=== PATIENT | female | born 1955 | race Caucasian/White ===

== ENCOUNTER 2019-03-29 10:02 | Inpatient (IN) | payer MEDICARE, BC ==
[~2019-03-29] VITALS: Ht 157.5 cm; Wt 73.1 kg
[2019-03-29] VITALS (22 sets, daily range): BP systolic 105–176; BP diastolic 69–163; PULSE 124–194; RESP 14–35; Ht 157.5 cm; Wt 73.1 kg
[2019-03-29] MEDS ORDERED: SODIUM CHLORIDE 0.9% 1L BAG IV* STA (10:11)
[2019-03-29] MEDS ORDERED: VANCOMYCIN 1 GM (PMX) 250 ML IVPB ONE (10:30)
[2019-03-29] MEDS ORDERED: LEVOFLOXACIN 750MG/D5W (PMX) 150 ML IVPB ONE (10:30)
[2019-03-29] MEDS ORDERED: CRAN425C6 GTB (11:51)
[2019-03-29] MEDS ORDERED: CRAN3875 GTB (11:52)
[2019-03-29] MEDS ORDERED: FERR220S13 GTB (11:52)
[2019-03-29] MEDS ORDERED: ASC500 GTB (11:53)
[2019-03-29] MEDS ORDERED: MULT9LIQ4 GTB (11:54)
[2019-03-29] MEDS ORDERED: MAGN400O19 GTB (11:55)
[2019-03-29] MEDS ORDERED: DOCU-144 GTB (11:55)
[2019-03-29] MEDS ORDERED: BISA10SU55 RC (11:56)
[2019-03-29] MEDS ORDERED: NA P133E39 RC (11:56)
[2019-03-29] MEDS ORDERED: ACET-141 GTB (12:01)
[2019-03-29] MEDS ORDERED: ACET325T33 GTB ×2 (12:01)
[2019-03-29] MEDS ORDERED: DEXT1DRO7 OP (12:02)
[2019-03-29] MEDS ORDERED: AMLO-147 GTB (12:03)
[2019-03-29] MEDS ORDERED: APIX2.5T GTB (12:15)
[2019-03-29] MEDS ORDERED: KEP100S GTB (12:16)
[2019-03-29] MEDS ORDERED: LEVO100T8 GTB (12:16)
[2019-03-29] MEDS ORDERED: MELA5TAB4 GTB (12:17)
[2019-03-29] MEDS ORDERED: LOVA10TA63 GTB (12:17)
[2019-03-29] MEDS ORDERED: POTA20TA96 GTB (12:18)
[2019-03-29] MEDS ORDERED: CLON0.5T14 GTB (12:25)
--- NOTE | 2019-03-29 12:27 | ERD ---
ER Documentation Chief Complaint Chief Complaint AARON FROM FACILITY WIHT A CHEIF COMPLAINT OF SORTNESS OF BREATH HPI 64-year-old female transferred to the emergency department from her convalescent facility for evaluation of shortness of breath. Patient is nonverbal providing no history. History available from the daughter as well as from the transfer paperwork. Patient was apparently in her usual state of health until today at which time she began having increasing shortness of breath. There is no known history of fevers or chest pain. I have reviewed the child daycare worker pre-hospital care. Pre-hospital vital signs were reviewed. Pre-hospital diagnostic tests were reviewed. Upon arrival, patient is nonverbal and provides no further history. ROS All systems reviewed and are negative except as per history of present illness. Medications Home Meds Reported Medications Clonazepam* (Clonazepam*) 0.5 Mg Tablet, 0.5 MG GTB BID, TAB 03/29/19 Potassium Chloride* (Potassium Chloride*) 20 Meq Tablet.er, 20 MEQ GTB DAILY, TAB.SA 03/29/19 Melatonin (Melatonin) 5 Mg Tablet, 5 MG GTB HS, TAB 03/29/19 Lovastatin* (Lovastatin*) 10 Mg Tablet, 10 MG GTB HS, TAB 03/29/19 Levothyroxine Sodium* (Levothyroxine Sodium*) 100 Mcg Tablet, 100 MCG GTB BEFORE BREAKFAST, #30 TAB 03/29/19 Levetiracetam* (Keppra* (Ped)) 100 Mg/Ml Liq, 15 ML GTB Q12H for 30 Days, BOTTLE 03/29/19 Apixaban* (Eliquis*) 2.5 Mg Tablet, 2.5 MG GTB DAILY, TAB 03/29/19 Amlodipine Besylate* (Amlodipine Besylate*) 10 Mg Tablet, 10 MG GTB DAILY, #30 TAB HOLD FOR SBP<110 OR HR<60 03/29/19 Dextran 70/Hypromellose/Pf (ARTIFICIAL TEARS DROPS) 1 Each Droperette, 1 EACH OP Q12H 03/29/19 Acetaminophen* (Acetaminophen*) 500 MG Extra Strength Tablet, 1000 MG GTB Q4H PRN for PAIN LEVEL 4-6/10, TAB 03/29/19 Acetaminophen* (Tylenol*) 325 Mg Tablet, 650 MG GTB PRN PRN for TRACH TUBE CHANGE, TAB 03/29/19 Acetaminophen* (Tylenol*) 325 Mg Tablet, 650 MG GTB Q4H PRN for MILD PAIN LEVEL 1-3, TAB AND FOR FEVER 101 AND ABOVE 03/29/19 Bisacodyl (Dulcolax) 10 Mg Supp.rect, 10 MG RC DAILY, SUPP.RECT 03/29/19 Sodium Phosphate,[place]-Dibasic (Enema Ready To Use) 133 Ml Enema, 133 ML RC Q2D, ENEMA 03/29/19 Magnesium Hydroxide* (Milk Of Magnesia*) 400 Mg/5 Ml Oral.susp, 30 ML GTB DAILY, ML 03/29/19 Docusate Sodium* (Colace*) 100 Mg Capsule, 100 MG GTB QHS, #30 CAP 03/29/19 Multivit &Minerals/Ferrous Fum (MULTIVITAMIN LIQUID) 9 Mg/15 Ml Liquid, 5 ML GTB DAILY 03/29/19 Ascorbic Acid (Vitamin C) 500 Mg Tab, 500 MG GTB BID, TAB 03/29/19 Ferrous Sulfate* (Ferrous Sulfate*) 220 Mg/5 Ml Solution, 7.5 ML GTB BID, ML 03/29/19 Cran/Vitc/Mannose/Inulin/Brom (Uti-Stat Liquid) 3,875 Mg/30 Ml Liquid, 30 MG GTB DAILY 03/29/19 Cranberry Extract (Cranberry) 425 Mg Capsule, 425 MG GTB BID, CAP 03/29/19 Allergies Allergies: Coded Allergies: Penicillins (Verified Allergy, Intermediate, Hives, 03/29/19) vancomycin (Verified Allergy, Intermediate, Hives, 03/29/19) PMhx/Soc History of Surgery: Yes (Lft Mastectomy) Hx Neurological Disorder: Yes (CVA w/Rt weakness, epilepsy) Hx Respiratory Disorders: Yes (vent dependent) Hx Cardiac Disorders: Yes (Afib w/RVR, HTN, CAD, ) Hx Psychiatric Problems: No Hx Miscellaneous Medical Probl: Yes (Breast CA, ) Hx Alcohol Use: No Hx Substance Use: No Hx Tobacco Use: No Smoking Status: Never smoker Physical Exam Vitals Vital Signs Date Temp Pulse Resp B/P (MAP) Pulse Ox O2 O2 Flow FiO2 Time Delivery Rate 03/29/19 99.9 133 16 106/64 100 12:02 (78) 03/29/19 99.9 189 24 179/153 100 Mechanical 10:56 (162) Ventilator 6/29/19 169 29 98 40 10:24 Physical Exam General: Frail, bed bound, ill appearing HEENT: Mucous membranes dry, sclera nonicteric Neck: Tracheostomy noted. Ostomy patent. No inflammatory changes noted. No JVD. Cardiovascular: Rapid, irregularly irregular rate and rhythm with no murmurs Lungs: Transmission of upper airway sounds. Abdomen: Soft with G-tube appreciated. Nontender to palpation. Bowel sounds noted. : Diaper in place and incontinent. Extremities: Atrophic but atraumatic with no edema, cyanosis or clubbing. Neurologic: Baseline organic brain syndrome noted. Gag reflex week. Motor streng th diminished in all 4 extremities but otherwise nonfocal. Skin: Skin breakdown noted per nursing note. Result Diagram: 03/29/19 1130 03/29/19 1047 Results 24 hrs Laboratory Tests Test 03/29/19 10:40 03/29/19 10:47 03/29/19 11:30 POC Venous Lactate 1.0 mmol/L Prothrombin Time 15.0 Sec Prothrombin Time Ratio 1.2 INR International 1.17 Normalized Ratio Activated Partial Thromboplast 20.8 Sec Time Sodium Level 143 mmol/L Potassium Level 4.6 mmol/L Chloride Level 107 mmol/L Carbon Dioxide Level 25 mmol/L Anion Gap 11 Blood Urea Nitrogen 19 mg/dl Creatinine 0.41 mg/dl Est Glomerular Filtrat > 60 mL/min Rate mL/min Glucose Level 138 mg/dl Calcium Level 8.7 mg/dl Total Bilirubin 0.6 mg/dl Direct Bilirubin 0.00 mg/dl Indirect Bilirubin 0.6 mg/dl Aspartate Amino Transf (AST/SGOT) 22 IU/L Alanine 22 IU/L Aminotransferase (ALT/SGPT) Alkaline Phosphatase 87 IU/L Troponin I < 0.012 ng/ml Total Protein 7.0 g/dl Albumin 3.7 g/dl Globulin 3.30 g/dl Albumin/Globulin Ratio 1.12 White Blood Count 10.6 10^3/ul Red Blood Count 4.13 10^6/ul Hemoglobin 11.7 g/dl Hematocrit 35.3 % Mean Corpuscular Volume 85.5 fl Mean Corpuscular Hemoglobin 28.3 pg Mean Corpuscular 33.1 g/dl Hemoglobin Concent Red Cell Distribution Width 13.6 % Platelet Count 218 10^3/UL Mean Platelet Volume 13.1 fl Immature Granulocytes % 0.800 % Neutrophils % 69.8 % Lymphocytes % 13.6 % Monocytes % 12.3 % Eosinophils % 2.8 % Basophils % 0.7 % Nucleated Red Blood Cells % 0.2 /100WBC Immature Granulocytes # 0.080 10^3/ul Neutrophils # 7.4 10^3/ul Lymphocytes # 1.4 10^3/ul Monocytes # 1.3 10^3/ul Eosinophils # 0.3 10^3/ul Basophils # 0.1 10^3/ul Nucleated Red Blood Cells # 0.0 10^3/ul Current Medications Medications Dose Sig/Garrett Start Time Status Last (Trade) Ordered Route PRN Stop Time Admin Dose Reason Admin Sodium 2,100 ml BOLUS OVER 2 03/29/19 DC 03/29/19 Chloride HOURS STAT 10:11 11:04 (NS) IV* 03/29/19 10:13 150 ml @ ONCE ONCE 03/29/19 DC 03/29/19 Levofloxacin/ 100 mls/hr IVPB 10:30 12:20 Dextrose 03/29/19 11:59 Vancomycin 250 ml @ ONCE ONCE 03/29/19 DC HCl 125 mls/hr IVPB 10:30 03/29/19 11:31 Procedures/MDM Patient was taken to a room, seen and evaluated. Comfort measures were initiated. Diagnostic tests were ordered and reviewed. 3 LEAD RHYTHM STRIP: Atrial fibrillation with rapid ventricular response EK lead EKG reviewed by myself: Atrial fibrillation with rapid ventricular response Right bundle branch block Nonspecific ST and T wave changes without ST elevation Impression: Nonspecific EKG RADIOLOGY: Reviewed with the radiologist CONSULTATION: Dr. Thomas was notified for admission. Dr. Lima saw the patient at bedside. REEVALUATION: 1230: Diagnostic tests were appreciated. Patient remained with a rapid ventricular response. I ordered a Cardizem drip. Blood pressure remained borderline the patient did not appear to be in septic or septic shock. MEDICAL DECISION MAKING: Patient presents for shortness of breath. Differential diagnosis entertained included asthma, pneumonia, other cardiac and pulmonary concerns. After reviewing the patient's diagnostic tests and clinical presentation, patient appears to have atrial fibrillation with rapid ventricular response. It is difficult to assess at this time if this is a shortness of breath is related to her cardiac issues or underlying pneumonia with a reactive atrial fibrillation with RVR. Patient will require ongoing aggressive supportive measures including the ongoing Cardizem drip. Empiric antibiotics have been initiated for the concerns and high risk of this possibly being a ventilator associated/healthcare associated pneumonia. Patient will be admitted to the hospital for further supportive management. CRITICAL CARE: Time:>35 minutes Patient has a significant chance of clinical deterioration Treatments/Evaluations: Close monitoring and treatment of unstable vital signs, cardiorespiratory, and neurologic status, while maintaining tight balance of fluid, respiratory, and cardiac interventions. Departure Diagnosis: Primary Impression: Shortness of breath Additional Impression: Atrial fibrillation Condition: Serious SAMREEN WHITLEY Mar 29, 2019 12:26
[2019-03-29] MEDS ORDERED: [UNRECOGNIZED DRUG - OTHER] OP SCH (14:00)
[2019-03-29] MEDS ORDERED: HYPROMELLOSE OP SCH (14:00)
[2019-03-29] MEDS ORDERED: DEXTRAN OP SCH (14:00)
[2019-03-29] MEDS: DILTIAZEM-D5W 125MG/125ML DRIP 125 ML IV SCH (14:21)
[2019-03-29] MEDS ORDERED: LORAZEPAM 2 MG INJ IV PRN (15:00)
[2019-03-29] MEDS ORDERED: IPRATROPIUM (HFA) 12.9 GM INHALER INH PRN (15:00)
[2019-03-29] MEDS ORDERED: ONDANSETRON 4 MG INJ IV PRN (15:00)
--- NOTE | 2019-03-29 16:15 | CONS ---
DATE OF ADMISSION: 03/29/2019 DATE OF CONSULTATION: 03/29/2019 TYPE OF CONSULTATION: Infectious disease. REASON FOR CONSULTATION: Antibiotic management. HISTORY OF PRESENT ILLNESS: Kaylen Marrero is a 64-year-old [facility] for evaluation of shortness of breath. The patient is nonverbal. History was obtained in the Emergency Room from the daughter and from transfer paper work . The patient began to have shortness of breath today. She had no fever or chills. She is nonverba l. PAST PROBLEMS include: 1. Shortness of breath. 2. History of breast cancer status post left mastectomy. 3. Cerebrovascular accident with right-sided weakness. 4. Epilepsy. 5. Ventilator-dependent respiratory failure. 6. Atrial fibrillation with rapid ventricular response. 7. Hypertension. 8. Coronary artery disease. PAST MEDICAL HISTORY: As outlined. FAMILY HISTORY: Noncontributory. REVIEW OF SYSTEMS: As outlined. PHYSICAL EXAMINATION: GENERAL: She is a frail, bedbound female. VITAL SIGNS: T-max is 99.9. SKIN: Has some breakdown in the sacral area. HEENT: Within normal limits. NECK: Tracheostomy present. The ostomy is patent without exudate. Neck is supple. LYMPH NODES: None palpable. CHEST: Tachycardic. Irregularly irregular rhythm without murmurs. Decreased breath sounds at the b ases. ABDOMEN: Soft. G-tube present without organosplenomegaly or masses. EXTREMITIES: Without cyanosis, clubbing, or edema. She has some atrophy. RECTAL AND GENITAL: Deferred. NEUROLOGIC: The patient is incontinent. Baseline organic brain syndrome. Motor strength diminished in all 4 extremities, but there is no focal abnormality. ANCILLARY LABORATORY DATA: White count on admission was 10.6, H and H of 11.7 and 35.3, platelet cou nt 218,000. BUN and creatinine 19/0.41. She has 70% neutrophils. The patient was started on Levaqu in and vancomycin. Chest x-ray shows changes suggesting pulmonary congestion and edema with small to moderate effusions, tracheostomy tube is noted. Surgical clips over the right axilla, due probably to the mastectomy. IMPRESSION AND PLAN: The patient probably has shortness of breath related to congestive heart failur e. She is in rapid atrial fibrillation with rapid ventricular response, with shortness of breath. S he received Cardizem in the Emergency Room. She has high risk for ventilator-associated, healthcare- associated pneumonia, but no evidence of pneumonia at this point. If so, we would change her to [facility] guo from [facility]. I will dictate my findings to the hospitalists. Dictated By: BLADIMIR ALBARRAN MD, JD/INDIGO Conf#: [id number] DID#: [id number]
--- NOTE | 2019-03-29 16:56 | HP ---
Date/Time of Note Date/Time of Note DATE: 03/29/19 TIME: 16:33 Assessment/Plan VTE Prophylaxis SCD applied (from Nsg): Yes Pharmacological prophylaxis: LMWH Lines/Catheters IV Catheter Type (from Nrsg): Peripheral IV Assessment/Plan Assessment/Plan 1. Acute on chronic hypoxic respiratory failure - most likely secondary to pulmonary congestion - Continue on mechanical ventilation - Pulmonology consultation placed for vent management - Nebs on board 2. Acute on chronic diastolic heart failure - will start on Lasix - check BNP - CXR noted for pulm congestion - Cardiology consulted 3. Afib with RVR - started on Cardizem in ED - Continue on Eliquis - will check TSH 4. UTI - hx ESBL per [facility] records - ID consulted for antibiotic management - Urine cx sent - IV antibiotics 5. 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 Diabetes Mellitus - check A1c 7. hypothyroidism - check TSH - continue levothyroxine 8. HTN - hold while on cardizem drip 9. GERD - PPI 10. h/o CVA with L residual weakness 11. Seizures - continue keppra 12. h/o breast CA s/p mastectomy 13. Diet - continue TF 14. Disposition - Admit to ICU for acute respiratory failure and management of afib with RVR Result Diagram: 03/29/19 1130 03/29/19 1047 Results 24hrs Laboratory Tests Test 03/29/19 10:40 03/29/19 10:47 03/29/19 11:00 03/29/19 11:30 POC Venous 1.0 Lactate Prothrombin Time 15.0 H Prothrombin Time 1.2 Ratio INR International 1.17 Normalized Ratio Activated 20.8 L Partial Thrombopl ast Time Sodium Level 143 Potassium Level 4.6 Chloride Level 107 Carbon Dioxide 25 Level Anion Gap 11 Blood Urea 19 Nitrogen Creatinine 0.41 L Est Glomerular > 60 Filtrat Rate mL/min Glucose Level 138 Calcium Level 8.7 Total Bilirubin 0.6 Direct Bilirubin 0.00 Indirect 0.6 Bilirubin Aspartate Amino 22 Transf (AST/SGOT) Alanine 22 Aminotransferase (ALT/SGPT) Alkaline 87 Phosphatase Troponin I < 0.012 Total Protein 7.0 Albumin 3.7 Globulin 3.30 H Albumin/Globulin 1.12 Ratio Blood Gas Blood arterial Specimen Source Arterial Blood 03/29/2019 12:37: Date Drawn 28 PM Arterial Blood pH 7.452 H (Temp corrected) Arterial Blood 33.1 L pCO2 (Temp correct) Arterial Blood 104.6 H pO2 (Temp corrected) Arterial Blood 22.6 HCO3 Arterial Blood -0.7 Base Excess Arterial Blood 97.4 Oxygen Saturation Joseph Test ACCEPTAB Arterial Blood Left Radial Gas Puncture Site Arterial 0.3 Blood Carboxyhemo globin Arterial Blood 0.3 Methemoglobin Blood Gas A-a O2 142.5 H Differential Oxyhemoglobin 96.8 Percent Blood Gas 37.0 Temperature Blood Gas 16.0 Respiration Rate Blood Gas Actual 18 Respiration Rate Blood Gas VENT - AC Modality FiO2 40.0 Blood Gas Tidal 450.0 Volume Blood Gas Low 5.0 PEEP Setting Blood Gas M.D. Notified Whom Blood Gas 03/29/2019 12:47: Notified Time 50 PM White Blood Count 10.6 Red Blood Count 4.13 L Hemoglobin 11.7 L Hematocrit 35.3 L Mean Corpuscular 85.5 Volume Mean Corpuscular 28.3 L Hemoglobin Mean Corpuscular 33.1 Hemoglobin Concen t Red Cell 13.6 Distribution Width Platelet Count 218 Mean Platelet 13.1 H Volume Immature 0.800 H Granulocytes % Neutrophils % 69.8 Lymphocytes % 13.6 L Monocytes % 12.3 H Eosinophils % 2.8 Basophils % 0.7 Nucleated Red 0.2 H Blood Cells % Immature 0.080 H Granulocytes # Neutrophils # 7.4 Lymphocytes # 1.4 Monocytes # 1.3 H Eosinophils # 0.3 Basophils # 0.1 Nucleated Red 0.0 Blood Cells # Test 03/29/19 12:15 03/29/19 13:39 Urine Color YELLOW Urine Clarity CLOUDY A Urine pH 9.0 Urine Specific 1.011 [place] Urine Ketones NEGATIVE Urine Nitrite POSITIVE A Urine Bilirubin NEGATIVE Urine NEGATIVE Urobilinogen Urine Leukocyte 3+ H Esterase Urine Microscopic 146 H RBC Urine Microscopic 26 H WBC Urine Bacteria FEW A Urine Hemoglobin 3+ H Urine Glucose NEGATIVE Urine Total 2+ H Protein Lactic Acid Level 1.4 B-Type 9110 H Natriuretic Peptide HPI/ROS Admit Date/Time Admit Date/Time 01/27/19 Hx of Present Illness 64 yo F with PMH atrial fibrillation, diastolic HF, dementia, subdural hemorrhage s/p evacuation with resulting encephalopathy, CVA with residual L sided weakness, chronic respiratory failure, trach to vent, diabetes mellitus, seizure, HTN, GERD, hypothyroidism, hx ESBL UTI, and breast cancer presented from SNF for worsening shortness of breath. Patient's daughters at bedside and providing history as patient is nonverbal. Patient has been nonverbal and bedridden for the past 1.5 years and resides at [facility]. Per daughters, patient was turning red this am and was noted with difficulty breathing, Denies any coughing, wheezing, fevers, or chills. Daughters have been concerned about recurrent UTIs and was recently at [facility] for tx of ESBL UTI. They state since her lakhani was placed in December, their mother has been having issues. In the ED, patient was found in rapid atrial fibrillation and started on Cardizem drip. ROS All 12 systems reviewed and pertinent positives as per HPI. All others negative. Subjective hx not possible: pt non-verbal Constitutional: No chills, No fatigue, No nausea Eyes: No discharge ENT: No congestion Respiratory: shortness of breath; No cough, No sputum, No wheezing Cardiovascular: No chest pain, No lightheadedness, No palpitations Gastrointestinal: No pain, No constipation, No diarrhea, No nausea, No vomiting Genitourinary: discharge, hematuria; No dysuria Musculoskeletal: No restricted range of motion Skin: no complaints Neurologic: focal-weakness; No syncope Lymphatic: no complaints Immunologic: no complaints PMH/Family/Social Past Medical History Medical History: congestive heart failure, diabetes, GERD, hypertension, hypothyroid, other (atrial fibrillation, SDH, dementia, seizure, ) Medications Current Medications Diltiazem HCl 125 ml @ 5 mls/hr TITRATE IV Last administered on 03/29/19at 14:21; Admin Dose 5 MLS/HR; Start 03/29/19 at 12:30 Acetaminophen (Tylenol Tab) 650 mg Q4H PRN GTB MILD PAIN LEVEL 1-3; Start 03/29/19 at 14:00 Apixaban (Eliquis) 2.5 mg DAILY GTB ; Start 03/30/19 at 09:00; Status UNV Ascorbic Acid (Vitamin C) 500 mg BID GTB ; Start 03/29/19 at 21:00 Clonazepam (Klonopin) 0.5 mg BID GTB ; Start 03/29/19 at 21:00 Ferrous Sulfate (Ferrous Sulfate) 330 mg BID GTB ; Start 03/29/19 at 21:00; Status UNV Levetiracetam (Keppra Liquid) 1,500 mg Q12H GTB ; Start 03/29/19 at 14:00 Levothyroxine Sodium (Synthroid) 100 mcg BEFORE BREAKFAST GTB ; Start 03/30/19 at 07:00 Magnesium Hydroxide (Milk Of Mag) 30 ml DAILY GTB ; Start 03/30/19 at 09:00 Melatonin (Melatonin) 5 mg HS GTB ; Start 03/29/19 at 21:00 Miscellaneous Information 1 each Q12H OP ; Start 03/29/19 at 14:00; Status UNV Miscellaneous Information 10 mg HS GTB ; Start 03/29/19 at 21:00; Status UNV Miscellaneous Information 5 ml DAILY GTB ; Start 03/30/19 at 09:00; Status UNV Docusate Sodium (Colace Liquid Cup) 100 mg QHS GTB ; Start 03/29/19 at 21:00 Ondansetron HCl (Zofran Inj) 4 mg Q6H PRN IV NAUSEA AND/OR VOMITING; Start 03/29/19 at 15:00 Ipratropium [place] (Atrovent Hfa) 4 puff Q4H RESP THERAPY INH ; Start 03/29/19 at 17:00; Status UNV Ipratropium [place] (Atrovent Hfa) 4 puff Q2H RESP THERAPY PRN INH SHORTNESS OF BREATH; Start 03/29/19 at 15:00; Status UNV Lorazepam (Ativan) 1 mg Q2H PRN IV ANXIETY; Start 03/29/19 at 15:00 Meropenem/Sodium Chloride 50 ml @ 100 mls/hr Q12 IVPB ; Start 03/29/19 at 21:00; Status UNV Coded Allergies: Penicillins (Verified Allergy, Intermediate, Hives, 03/29/19) vancomycin (Verified Allergy, Intermediate, Hives, 03/29/19) Past Surgical History Past Surgical Hx: other (Right mastectomy, left subdural evacuation, trach/peg) Family History Significant Family History: no pertinent family hx Social History Alcohol Use: none Smoking Status: Never smoker Drug Use: none Exam/Review of Systems Vital Signs Vitals Vital Signs Date Temp Pulse Resp B/P (MAP) Pulse Ox O2 O2 Flow FiO2 Time Delivery Rate 03/29/19 146 14 98 40 14:49 03/29/19 97/72 (80) Mechanical 14:21 Ventilator 03/29/19 99.9 12:02 Exam Exam General: No acute distress. nonverbal, tracking with eyes HEENT: Atraumatic, normocephalic. The pupils are equal, round and reactive. Extraocular motor are intact. Neck: Supple with full range of motion. No rigidity or meningismus Chest: Nontender Lungs: Clear to auscultation bilaterally no crackles rales or wheezing Heart: Normal S1-S2, irregular rhythm and tachycardia. No murmur, S3, or S4 Abdomen: Soft , nontender to palpation, nondistended , bowel sounds are present. No guarding no rebound tenderness , No masses or organomegaly. No costovertebral temporal angle mass. PEG in place Extremities: no edema, cyanosis, or clubbing Neurologic: tracking with eyes. not following commands. Additional Comments Home medications reviewed PROCEDURE: XR Chest 1 View CLINICAL INDICATION: Shortness of breath. Sepsis. TECHNIQUE: VIEWS: 1 IMAGES: 1 COMPARISON: None. FINDINGS: CARDIAC AND MEDIASTINAL SILHOUETTES: The heart appears mildly enlarged. Mild aortic calcifications are present. LUNGS: There is interstitial prominence and diffuse alveolar haziness with central predominance. Small to moderate effusions may be present. OSSEOUS STRUCTURES: Vertebral osteophytes are noted. LINES AND TUBES: Tracheostomy tube is noted. OTHER FINDINGS: Surgical clips overlie the right axilla. IMPRESSION: 1. Changes suggest pulmonary congestion/edema with small to moderate effusions. RPTAT:[facility] Physician [place] Date Time Electronically viewed and signed by Alok Valentine Physician on 03/29/2019 10:40 ANISH STRINGER MD Mar 29, 2019 16:48
[2019-03-29] MEDS ORDERED: ARTIFICIAL TEARS 15 ML OPH BOTH EYES PRN (18:30)
[2019-03-29] MEDS: LEVETIRACETAM (100 MG/ML) 5ML CUP GTB SCH (18:31)
[2019-03-29] MEDS ORDERED: FERROUS SULFATE 220 MG/5 ML ML GTB SCH (21:00)
[2019-03-29] MEDS ORDERED: NON-FORMULARY/PATIENT OWN MED (Lovastatin* 10 MG) GTB SCH (21:00)
[2019-03-29] MEDS ORDERED: MEROPENEM 500MG/50 ML (PMX) 50 ML IVPB SCH (21:00)
[2019-03-29] MEDS: IPRATROPIUM (HFA) 12.9 GM INHALER INH SCH (21:00)
[2019-03-29] MEDS: DOCUSATE SODIUM 10 MG/ML (10ML CUP) GTB SCH (21:11)
[2019-03-29] MEDS: FERROUS SULFATE 60 MG/ML 5ML CUP GTB SCH (21:11)
[2019-03-29] MEDS: MELATONIN 5 MG TABLET GTB SCH (21:12)
[2019-03-29] MEDS: ATORVASTATIN 10 MG TAB PO SCH (21:12)
[2019-03-29] MEDS: clonAZEPAM 0.5 MG TAB GTB SCH (21:12)
[2019-03-29] MEDS: ASCORBIC ACID 500 MG TAB GTB SCH (21:12)
[2019-03-29] MEDS ORDERED: METOPROLOL 5 MG INJ IV ONE (23:50)
[2019-03-30] VITALS (73 sets, daily range): BP systolic 81–160; BP diastolic 63–141; PULSE 63–159; RESP 12–26
[2019-03-30] MEDS ORDERED: MAGNESIUM SULFATE 3 GM in DEXTROSE 5% 100 ML IVPB ONE ×2
[2019-03-30] MEDS: IPRATROPIUM (HFA) 12.9 GM INHALER INH SCH ×6 (01:18→21:37)
[2019-03-30] MEDS: DILTIAZEM-D5W 125MG/125ML DRIP 125 ML IV SCH (01:50)
[2019-03-30] MEDS: LEVETIRACETAM (100 MG/ML) 5ML CUP GTB SCH ×2 (01:52→14:34)
[2019-03-30] MEDS: AMIODARONE 900 MG in DEXTROSE 5% 482 ML IV SCH (03:16)
[2019-03-30] MEDS ORDERED: SOD CHLORIDE 0.9% 500 ML IV ONE (04:00)
[2019-03-30] MEDS ORDERED: POTASSIUM CHLORIDE 20 MEQ POWDER FOR ORAL SOLN GTB ONE (06:00)
[2019-03-30] MEDS: LEVOTHYROXINE 100 MCG TAB GTB SCH (06:11)
[2019-03-30] MEDS: POTASSIUM CHLORIDE 100 ML IVPB SCH ×2 (06:12→10:29)
[2019-03-30] MEDS ORDERED: CALCIUM GLUCONATE 10% 2 GM in DEXTROSE 5% 100 ML IVPB ONE (07:00)
[2019-03-30] MEDS: APIXABAN 5 MG TABLET GTB SCH (08:25)
[2019-03-30] MEDS: FERROUS SULFATE 60 MG/ML 5ML CUP GTB SCH ×2 (08:25→20:23)
[2019-03-30] MEDS: MAGNESIUM HYDROXIDE 30ML CUP GTB SCH (08:25)
[2019-03-30] MEDS: MULTIVITAMINS/MINERALS TAB PO SCH (08:25)
[2019-03-30] MEDS: clonAZEPAM 0.5 MG TAB GTB SCH ×2 (08:25→20:23)
[2019-03-30] MEDS: ASCORBIC ACID 500 MG TAB GTB SCH ×2 (08:25→20:24)
[2019-03-30] MEDS ORDERED: NON-FORMULARY/PATIENT OWN MED (Multivit &Minerals/Ferrous Fum (Multivitamin Liquid) 5 ML) GTB SCH (09:00)
--- NOTE | 2019-03-30 09:56 | PN ---
Date/Time of Note Date/Time of Note DATE: 03/30/19 TIME: 09:56 Assessment/Plan VTE Prophylaxis Risk score (from Nsg)>0 risk: 6 SCD applied (from Nsg): Yes Pharmacological prophylaxis: apixaban Lines/Catheters IV Catheter Type (from Nrsg): Peripheral IV Urinary Cath still in place: Yes Reason Cath still needed: urinary retention Assessment/Plan Assessment/Plan 1. Acute on chronic hypoxic respiratory failure- stable - most likely secondary to pulmonary congestion - repeat CXR in am - Continue on mechanical ventilation - Pulmonology consulted for vent management - Nebs on board 2. Acute on chronic diastolic heart failure - Continue on Lasix and monitor I/O and daily weights - BNP elevated - CXR noted for pulm congestion - Cardiology consulted 3. Afib with RVR - started on Cardizem in ED and switched to Amiodarone. Still with elevated HR and PRN cardizem added. Unable to use digoxin for rate control given low K - Continue on Eliquis 4. UTI - hx ESBL per [facility] records - ID consultation appreciated - Urine cx showing gram neg rods - IV antibiotics 5. 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 Diabetes Mellitus - check A1c 7. hypothyroidism - TSH within normal limits - continue levothyroxine 8. HTN 9. GERD - PPI 10. h/o CVA with L residual weakness 11. Seizures - continue keppra 12. h/o breast CA s/p mastectomy 13. Disposition - Cardiology consultation pending for recommendations on afib with RVR and CHF exacerbation - will continue current care and awaiting urine cx sensitivities Result Diagram: 03/30/19 0430 03/30/19 0430 Results 24hrs Laboratory Tests Test 03/29/19 10:40 03/29/19 10:47 03/29/19 11:00 03/29/19 11:30 POC Venous 1.0 Lactate Prothrombin Time 15.0 H Prothrombin Time 1.2 Ratio INR International 1.17 Normalized Ratio Activated 20.8 L Partial Thrombopl ast Time Sodium Level 143 Potassium Level 4.6 Chloride Level 107 Carbon Dioxide 25 Level Anion Gap 11 Blood Urea 19 Nitrogen Creatinine 0.41 L Est Glomerular > 60 Filtrat Rate mL/min Glucose Level 138 Calcium Level 8.7 Total Bilirubin 0.6 Direct Bilirubin 0.00 Indirect 0.6 Bilirubin Aspartate Amino 22 Transf (AST/SGOT) Alanine 22 Aminotransferase (ALT/SGPT) Alkaline 87 Phosphatase Troponin I < 0.012 Total Protein 7.0 Albumin 3.7 Globulin 3.30 H Albumin/Globulin 1.12 Ratio Blood Gas Blood arterial Specimen Source Arterial Blood 03/29/2019 12:37: Date Drawn 28 PM Arterial Blood pH 7.452 H (Temp corrected) Arterial Blood 33.1 L pCO2 (Temp correct) Arterial Blood 104.6 H pO2 (Temp corrected) Arterial Blood 22.6 HCO3 Arterial Blood -0.7 Base Excess Arterial Blood 97.4 Oxygen Saturation Joseph Test ACCEPTAB Arterial Blood Left Radial Gas Puncture Site Arterial 0.3 Blood Carboxyhemo globin Arterial Blood 0.3 Methemoglobin Blood Gas A-a O2 142.5 H Differential Oxyhemoglobin 96.8 Percent Blood Gas 37.0 Temperature Blood Gas 16.0 Respiration Rate Blood Gas Actual 18 Respiration Rate Blood Gas VENT - AC Modality FiO2 40.0 Blood Gas Tidal 450.0 Volume Blood Gas Low 5.0 PEEP Setting Blood Gas M.D. Notified Whom Blood Gas 03/29/2019 12:47: Notified Time 50 PM White Blood Count 10.6 Red Blood Count 4.13 L Hemoglobin 11.7 L Hematocrit 35.3 L Mean Corpuscular 85.5 Volume Mean Corpuscular 28.3 L Hemoglobin Mean Corpuscular 33.1 Hemoglobin Concen t Red Cell 13.6 Distribution Width Platelet Count 218 Mean Platelet 13.1 H Volume Immature 0.800 H Granulocytes % Neutrophils % 69.8 Lymphocytes % 13.6 L Monocytes % 12.3 H Eosinophils % 2.8 Basophils % 0.7 Nucleated Red 0.2 H Blood Cells % Immature 0.080 H Granulocytes # Neutrophils # 7.4 Lymphocytes # 1.4 Monocytes # 1.3 H Eosinophils # 0.3 Basophils # 0.1 Nucleated Red 0.0 Blood Cells # Test 03/29/19 12:15 03/29/19 13:39 03/30/19 04:30 Urine Color YELLOW Urine Clarity CLOUDY A Urine pH 9.0 Urine Specific 1.011 [place] Urine Ketones NEGATIVE Urine Nitrite POSITIVE A Urine Bilirubin NEGATIVE Urine NEGATIVE Urobilinogen Urine Leukocyte 3+ H Esterase Urine Microscopic 146 H RBC Urine Microscopic 26 H WBC Urine Bacteria FEW A Urine Hemoglobin 3+ H Urine Glucose NEGATIVE Urine Total 2+ H Protein Lactic Acid Level 1.4 B-Type 9110 H Natriuretic Peptide White Blood Count 5.3 # Red Blood Count 2.97 #L Hemoglobin 8.5 #L Hematocrit 25.6 #L Mean Corpuscular 86.2 Volume Mean Corpuscular 28.6 L Hemoglobin Mean Corpuscular 33.2 Hemoglobin Concen t Red Cell 13.8 Distribution Width Platelet Count 146 # Mean Platelet 13.2 H Volume Immature 0.600 H Granulocytes % Neutrophils % 58.6 Lymphocytes % 18.4 Monocytes % 16.7 H Eosinophils % 4.9 Basophils % 0.8 Nucleated Red 0.0 Blood Cells % Immature 0.030 Granulocytes # Neutrophils # 3.1 Lymphocytes # 1.0 Monocytes # 0.9 Eosinophils # 0.3 Basophils # 0.0 Nucleated Red 0.0 Blood Cells # Sodium Level 145 H Potassium Level 2.0 #*L Chloride Level 123 H Carbon Dioxide 17 L Level Anion Gap 5 Blood Urea 9 # Nitrogen Creatinine 0.27 L Glucose Level 110 Hemoglobin A1c 6.0 H Calcium Level 4.8 *L Phosphorus Level 2.2 L Magnesium Level 2.0 Albumin 1.8 #L Thyroid 3.140 Stimulating Hormone (TSH) Subjective 24 Hr Interval Summary Free Text/Dictation Patient still in afib with RVR but remains calm. No acute distress appreciated. at bedside and plan of care discussed. Exam/Review of Systems Exam Vitals Vital Signs Date Temp Pulse Resp B/P (MAP) Pulse Ox O2 O2 Flow FiO2 Time Delivery Rate 03/30/19 113 08:00 03/30/19 16 115/87 98 06:15 (96) 03/30/19 Mechanical 06:00 Ventilator 03/30/19 30 05:01 03/30/19 98.2 04:00 Intake and Output 03/29/19 03/29/19 03/30/19 1515:00 23:00 07:00 IntakeIntake Total 120 ml 411.6 ml OutputOutput Total 90 ml 155 ml BalanceBalance 30 ml 256.6 ml Exam General: No acute distress. nonverbal, tracking with eyes Neck: Supple Chest: Nontender Lungs: Clear to auscultation bilaterally no crackles rales or wheezing Heart: Normal S1-S2, irregular rhythm and tachycardia. No murmur, S3, or S4 Abdomen: Soft , nontender to palpation, nondistended , bowel sounds are present. PEG in place Extremities: no edema, cyanosis, or clubbing Results Results 24hrs Laboratory Tests Test 03/29/19 10:40 03/29/19 10:47 03/29/19 11:00 03/29/19 11:30 POC Venous 1.0 Lactate Prothrombin Time 15.0 H Prothrombin Time 1.2 Ratio INR International 1.17 Normalized Ratio Activated 20.8 L Partial Thrombopl ast Time Sodium Level 143 Potassium Level 4.6 Chloride Level 107 Carbon Dioxide 25 Level Anion Gap 11 Blood Urea 19 Nitrogen Creatinine 0.41 L Est Glomerular > 60 Filtrat Rate mL/min Glucose Level 138 Calcium Level 8.7 Total Bilirubin 0.6 Direct Bilirubin 0.00 Indirect 0.6 Bilirubin Aspartate Amino 22 Transf (AST/SGOT) Alanine 22 Aminotransferase (ALT/SGPT) Alkaline 87 Phosphatase Troponin I < 0.012 Total Protein 7.0 Albumin 3.7 Globulin 3.30 H Albumin/Globulin 1.12 Ratio Blood Gas Blood arterial Specimen Source Arterial Blood 03/29/2019 12:37: Date Drawn 28 PM Arterial Blood pH 7.452 H (Temp corrected) Arterial Blood 33.1 L pCO2 (Temp correct) Arterial Blood 104.6 H pO2 (Temp corrected) Arterial Blood 22.6 HCO3 Arterial Blood -0.7 Base Excess Arterial Blood 97.4 Oxygen Saturation Joseph Test ACCEPTAB Arterial Blood Left Radial Gas Puncture Site Arterial 0.3 Blood Carboxyhemo globin Arterial Blood 0.3 Methemoglobin Blood Gas A-a O2 142.5 H Differential Oxyhemoglobin 96.8 Percent Blood Gas 37.0 Temperature Blood Gas 16.0 Respiration Rate Blood Gas Actual 18 Respiration Rate Blood Gas VENT - AC Modality FiO2 40.0 Blood Gas Tidal 450.0 Volume Blood Gas Low 5.0 PEEP Setting Blood Gas M.D. Notified Whom Blood Gas 03/29/2019 12:47: Notified Time 50 PM White Blood Count 10.6 Red Blood Count 4.13 L Hemoglobin 11.7 L Hematocrit 35.3 L Mean Corpuscular 85.5 Volume Mean Corpuscular 28.3 L Hemoglobin Mean Corpuscular 33.1 Hemoglobin Concen t Red Cell 13.6 Distribution Width Platelet Count 218 Mean Platelet 13.1 H Volume Immature 0.800 H Granulocytes % Neutrophils % 69.8 Lymphocytes % 13.6 L Monocytes % 12.3 H Eosinophils % 2.8 Basophils % 0.7 Nucleated Red 0.2 H Blood Cells % Immature 0.080 H Granulocytes # Neutrophils # 7.4 Lymphocytes # 1.4 Monocytes # 1.3 H Eosinophils # 0.3 Basophils # 0.1 Nucleated Red 0.0 Blood Cells # Test 03/29/19 12:15 03/29/19 13:39 03/30/19 04:30 Urine Color YELLOW Urine Clarity CLOUDY A Urine pH 9.0 Urine Specific 1.011 [place] Urine Ketones NEGATIVE Urine Nitrite POSITIVE A Urine Bilirubin NEGATIVE Urine NEGATIVE Urobilinogen Urine Leukocyte 3+ H Esterase Urine Microscopic 146 H RBC Urine Microscopic 26 H WBC Urine Bacteria FEW A Urine Hemoglobin 3+ H Urine Glucose NEGATIVE Urine Total 2+ H Protein Lactic Acid Level 1.4 B-Type 9110 H Natriuretic Peptide White Blood Count 5.3 # Red Blood Count 2.97 #L Hemoglobin 8.5 #L Hematocrit 25.6 #L Mean Corpuscular 86.2 Volume Mean Corpuscular 28.6 L Hemoglobin Mean Corpuscular 33.2 Hemoglobin Concen t Red Cell 13.8 Distribution Width Platelet Count 146 # Mean Platelet 13.2 H Volume Immature 0.600 H Granulocytes % Neutrophils % 58.6 Lymphocytes % 18.4 Monocytes % 16.7 H Eosinophils % 4.9 Basophils % 0.8 Nucleated Red 0.0 Blood Cells % Immature 0.030 Granulocytes # Neutrophils # 3.1 Lymphocytes # 1.0 Monocytes # 0.9 Eosinophils # 0.3 Basophils # 0.0 Nucleated Red 0.0 Blood Cells # Sodium Level 145 H Potassium Level 2.0 #*L Chloride Level 123 H Carbon Dioxide 17 L Level Anion Gap 5 Blood Urea 9 # Nitrogen Creatinine 0.27 L Glucose Level 110 Hemoglobin A1c 6.0 H Calcium Level 4.8 *L Phosphorus Level 2.2 L Magnesium Level 2.0 Albumin 1.8 #L Thyroid 3.140 Stimulating Hormone (TSH) Medications Medication Current Medications Acetaminophen (Tylenol Tab) 650 mg Q4H PRN GTB MILD PAIN LEVEL 1-3; Start 03/29/19 at 14:00 Apixaban (Eliquis) 2.5 mg DAILY GTB Last administered on 03/30/19at 08:25; Admin Dose 2.5 MG; Start 03/30/19 at 09:00 Ascorbic Acid (Vitamin C) 500 mg BID GTB Last administered on 03/30/19at 08:25; Admin Dose 500 MG; Start 03/29/19 at 21:00 Clonazepam (Klonopin) 0.5 mg BID GTB Last administered on 03/30/19 08:25; Admin Dose 0.5 MG; Start 03/29/19 at 21:00 Levetiracetam (Keppra Liquid) 1,500 mg Q12H GTB Last administered on 03/30/19 01:52; Admin Dose 1,500 MG; Start 03/29/19 at 14:00 Levothyroxine Sodium (Synthroid) 100 mcg BEFORE BREAKFAST GTB Last administered on 03/30/19 06:11; Admin Dose 100 MCG; Start 03/30/19 at 07:00 Magnesium Hydroxide (Milk Of Mag) 30 ml DAILY GTB Last administered on 03/30/19 08:25; Admin Dose 30 ML; Start 03/30/19 at 09:00 Melatonin (Melatonin) 5 mg HS GTB Last administered on 03/29/19 21:12; Admin Dose 5 MG; Start 03/29/19 at 21:00 Docusate Sodium (Colace Liquid Cup) 100 mg QHS GTB Last administered on 03/29/19 21:11; Admin Dose 100 MG; Start 03/29/19 at 21:00 Ondansetron HCl (Zofran Inj) 4 mg Q6H PRN IV NAUSEA AND/OR VOMITING; Start 03/29/19 at 15:00 Ipratropium [place] (Atrovent Hfa) 2 puff Q4H RESP THERAPY INH Last administered on 03/30/19 04:27; Admin Dose 2 PUFF; Start 03/29/19 at 17:00 Ipratropium [place] (Atrovent Hfa) 2 puff Q2H RESP THERAPY PRN INH SHORTNESS OF BREATH; Start 03/29/19 at 15:00 Lorazepam (Ativan) 1 mg Q2H PRN IV ANXIETY; Start 03/29/19 at 15:00 Levofloxacin/ Dextrose 150 ml @ 100 mls/hr Q24H IVPB ; Start 03/30/19 at 10:30 Atorvastatin Calcium (Lipitor) 10 mg DAILY@21 PO Last administered on 03/29/19 21:12; Admin Dose 10 MG; Start 03/29/19 at 21:00 Multivitamins/ Minerals (Theragran-M) 1 tab DAILY PO Last administered on 03/30/19 08:25; Admin Dose 1 TAB; Start 03/30/19 at 09:00 Eye Lubricant (Artificial Tears Oph) 1 drop Q12H PRN BOTH EYES DRY EYES; Start 03/29/19 at 18:30 Ferrous Sulfate (Feosol Liquid Cup) 300 mg BID GTB Last administered on at 08:25; Admin Dose 300 MG; Start 03/29/19 at 21:00 Amiodarone HCl 900 mg/Dextrose 500 ml @ 0 mls/hr Q0M IV Last administered on 03/30/19at 03:16; Admin Dose 33.3 MLS/HR; Start 03/30/19 at 03:00 Potassium Chloride 100 ml @ 50 mls/hr Q2H IVPB Last administered on 03/30/19at 06:12; Admin Dose 50 MLS/HR; Start 03/30/19 at 06:00; Stop 03/30/19 at 09:59 ANISH STRINGER MD Mar 30, 2019 09:56
[2019-03-30] MEDS ORDERED: DILTIAZEM 25 MG INJ IV PRN (10:30)
[2019-03-30] MEDS ORDERED: DILTIAZEM 25 MG INJ IV ONE (10:30)
[2019-03-30] MEDS: LEVOFLOXACIN 750MG/D5W (PMX) 150 ML IVPB SCH (13:31)
--- NOTE | 2019-03-30 14:15 | CONS ---
Assessment/Plan Assessment/Plan Hospital Course (Demo Recall) No acute changes overnight patient is awake noncommunicative in no distress afebrile with a T-max yesterday 99.9. She is on amiodarone drip heart rate controlled WBC 5.3 no shift no bands BUN 15 creatinine 0.41 Urinalysis was positive for leukocyte Estrace WBC and few bacteria Microbiology: Blood cultures remain negative urine culture growing gram-negative tre Chest x-ray revealed pulmonary congestion with small to moderate pleural effusions Indwelling: Trach PEG [place] Allergy: Penicillin, vancomycin Antimicrobials: Levofloxacin Physical examination: Chronically ill-appearing elderly woman who is in no distress. Head atraumatic normocephalic neck is supple chest rise symmetrical breath sounds diminished bases heart: S1-S2. Abdomen soft bowel sounds present. Assessment: 1. Acute on chronic hypoxemic respiratory failure secondary to pulmonary congestion 2. Urinary tract infection, gram-negative rods 3. Atrial fibrillation with rapid ventricular response 4. 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 Diabetes 6. Hypertension Plan: clinically stable, continue amiodarone drip, follow cardiology recommendations, await for final cultures Consultation Date/Type/Reason Admit Date/Time Mar 29, 2019 at 13:25 Initial Consult Date Type of Consult id Date/Time of Note DATE: 03/30/19 TIME: 14:14 Exam/Review of Systems Exam Vitals Vital Signs Date Temp Pulse Resp B/P (MAP) Pulse Ox O2 O2 Flow FiO2 Time Delivery Rate 03/30/19 114 12:00 03/30/19 97.6 18 139/74 98 Mechanical 12:00 (95) Ventilator 03/30/19 30 11:20 Intake and Output 03/29/19 03/29/19 03/30/19 1515:00 23:00 07:00 IntakeIntake Total 120 ml 484.9 ml OutputOutput Total 90 ml 175 ml BalanceBalance 30 ml 309.9 ml Results Result Diagram: 03/30/19 0430 03/30/19 1326 Results 24hrs Laboratory Tests Test 03/30/19 04:30 03/30/19 13:26 White Blood Count 5.3 # Red Blood Count 2.97 #L Hemoglobin 8.5 #L Hematocrit 25.6 #L Mean Corpuscular Volume 86.2 Mean Corpuscular Hemoglobin 28.6 L Mean Corpuscular Hemoglobin Concent 33.2 Red Cell Distribution Width 13.8 Platelet Count 146 # Mean Platelet Volume 13.2 H Immature Granulocytes % 0.600 H Neutrophils % 58.6 Lymphocytes % 18.4 Monocytes % 16.7 H Eosinophils % 4.9 Basophils % 0.8 Nucleated Red Blood Cells % 0.0 Immature Granulocytes # 0.030 Neutrophils # 3.1 Lymphocytes # 1.0 Monocytes # 0.9 Eosinophils # 0.3 Basophils # 0.0 Nucleated Red Blood Cells # 0.0 Sodium Level 145 H 139 Potassium Level 2.0 #*L 5.0 # Chloride Level 123 H 108 # Carbon Dioxide Level 17 L 23 Anion Gap 5 8 Blood Urea Nitrogen 9 # 15 Creatinine 0.27 L 0.41 L Glucose Level 110 185 Hemoglobin A1c 6.0 H Calcium Level 4.8 *L 8.5 Phosphorus Level 2.2 L Magnesium Level 2.0 Albumin 1.8 #L Thyroid Stimulating Hormone (TSH) 3.140 Est Glomerular Filtrat Rate mL/min > 60 Medications Medication Current Medications Acetaminophen (Tylenol Tab) 650 mg Q4H PRN GTB MILD PAIN LEVEL 1-3; Start 03/29/19 at 14:00 Apixaban (Eliquis) 2.5 mg DAILY GTB Last administered on 03/30/19 08:25; Admin Dose 2.5 MG; Start 03/30/19 at 09:00 Ascorbic Acid (Vitamin C) 500 mg BID GTB Last administered on 03/30/19 08:25; Admin Dose 500 MG; Start 03/29/19 at 21:00 Clonazepam (Klonopin) 0.5 mg BID GTB Last administered on 03/30/19 08:25; Admin Dose 0.5 MG; Start 03/29/19 at 21:00 Levetiracetam (Keppra Liquid) 1,500 mg Q12H GTB Last administered on 03/30/19 01:52; Admin Dose 1,500 MG; Start 03/29/19 at 14:00 Levothyroxine Sodium (Synthroid) 100 mcg BEFORE BREAKFAST GTB Last administered on 03/30/19 06:11; Admin Dose 100 MCG; Start 03/30/19 at 07:00 Magnesium Hydroxide (Milk Of Mag) 30 ml DAILY GTB Last administered on 03/30/19 08:25; Admin Dose 30 ML; Start 03/30/19 at 09:00 Melatonin (Melatonin) 5 mg HS GTB Last administered on 03/29/19 21:12; Admin Dose 5 MG; Start 03/29/19 at 21:00 Docusate Sodium (Colace Liquid Cup) 100 mg QHS GTB Last administered on 03/29/19 21:11; Admin Dose 100 MG; Start 03/29/19 at 21:00 Ondansetron HCl (Zofran Inj) 4 mg Q6H PRN IV NAUSEA AND/OR VOMITING; Start 03/29/19 at 15:00 Ipratropium [place] (Atrovent Hfa) 2 puff Q4H RESP THERAPY INH Last administered on 03/30/19 14:11; Admin Dose 2 PUFF; Start 03/29/19 at 17:00 Ipratropium [place] (Atrovent Hfa) 2 puff Q2H RESP THERAPY PRN INH SHORTNESS OF BREATH; Start 03/29/19 at 15:00 Lorazepam (Ativan) 1 mg Q2H PRN IV ANXIETY; Start 03/29/19 at 15:00 Levofloxacin/ Dextrose 150 ml @ 100 mls/hr Q24H IVPB Last administered on 03/30/19 13:31; Admin Dose 100 MLS/HR; Start 03/30/19 at 10:30 Atorvastatin Calcium (Lipitor) 10 mg DAILY@21 PO Last administered on 03/29/19 21:12; Admin Dose 10 MG; Start 03/29/19 at 21:00 Multivitamins/ Minerals (Theragran-M) 1 tab DAILY PO Last administered on 03/30/19 08:25; Admin Dose 1 TAB; Start 03/30/19 at 09:00 Eye Lubricant (Artificial Tears Oph) 1 drop Q12H PRN BOTH EYES DRY EYES; Start 03/29/19 at 18:30 Ferrous Sulfate (Feosol Liquid Cup) 300 mg BID GTB Last administered on 03/30/19 08:25; Admin Dose 300 MG; Start 03/29/19 at 21:00 Amiodarone HCl 900 mg/Dextrose 500 ml @ 0 mls/hr Q0M IV Last administered on 03/30/19 03:16; Admin Dose 33.3 MLS/HR; Start 03/30/19 at 03:00 Diltiazem HCl (Cardizem Iv) 5 mg Q4 PRN IV HR >110; Start 03/30/19 at 10:30 JASPER QUINTERO NP Mar 30, 2019 14:15
--- NOTE | 2019-03-30 14:45 | RADRPT ---
Echocardiogram Report Patient Name: MILLIE COSBYPatient ID: [id number] : 1955 (64y 1m)Study Date: 03/30/2019 9:40:55 AM Gender: FAccession #: [id number] Tech: RustamClinton GETACHEW Location: ICU 110-A Ref.Physician: ANISH STRINGER Height(Cm): BSA: Weight(Kg): Quality: AdequateOrder Physician: ANISH STRINGER Account #: Procedures: Echocardiographic Report: Transthoracic echocardiogram with complete 2D, M-Mode, and doppler examination. Indications: Evaluate Left Ventricular function. Measurements: 2D/M Mode Doppler Measurement Value Normal Range Measurement Value Normal Range LVIDd 2D 4.8 [ 3.8 - 5.2 ] cm AV Peak Nathanael 1.1 [ 100.0 - 170.0 ] cm/se c LVIDs 2D 4.2 [ 2.2 - 3.5 ] cm AV Peak PG 5.0 [ 2.0 - 9.0 ] mmHg LVPWd 2D 0.7 [ 0.6 - 0.9 ] cm LVOT Peak Nathanael 0.7 [ 70.0 - 110.0 ] cm/sec IVSd 2D 0.8 [ 0.6 - 0.9 ] cm LVOT Peak PG 2.0 [ 2.0 - 6.0 ] mmHg EDV 2D 109.0 [ 46.0 - 106.0 ] ml MV E Peak Nathanael 0.9 [ 60.0 - 130.0 ] cm/sec ESV 2D 79.5 [ 14.0 - 42.0 ] ml MV A Peak Nathanael 0.8 [ 100.0 - 120.0 ] cm/se c EF 2D 27.1 [ 54.0 - 74.0 ] percent MV E/A 1.1 [ 0.8 - 1.5 ] ratio LA Dimen 2D 3.9 [ 2.7 - 3.8 ] cm MV PHT 41.0 [ 20.0 - 100.0 ] msec MV Decel Time 141 [ 104 - 258 ] msec MV Decel [place] 6 Lat E` Nathaneal 0.1 [ 10.0 - 15.0 ] cm/sec Lateral E/E` 6.5 [ 1.0 - 2.0 ] ratio Med E` Nathanael 0.1 cm/sec MV E/A 1.1 [ 0.8 - 1.5 ] ratio MVA PHT 5.4 [ 2.0 - 4.0 ] cm2 TR Peak Nathanael 3.5 [ 100.0 - 280.0 ] cm/se c TR Peak PG 48.0 mmHg Findings: Left Ventricle: Normal left ventricular cavity size. Normal left ventricular wall thickness. Severe left ventricular systolic dysfunction. Global hypokinesis with better motion at the bases. Ejection fraction is visually estimated at 25-30 %. Tissue Doppler/Mitral Doppler indices are indeterminate in this study due to the presence of atrial fibrillation. Right Ventricle: Normal right ventricular size. Normal right ventricular systolic function. Left Atrium: There is severe enlargement of left atrium. Right Atrium: There is severe enlargement of right atrium. Atrial Septum: Normal atrial septum. Mitral Valve: Mild mitral annular calcification. Moderate mitral valve regurgitation. Aortic Valve: Aortic sclerosis without significant stenosis. No aortic regurgitation. Tricuspid Valve: Normal appearance of the tricuspid valve. The estimated Peak RVSP is 48 mmHg. There is moderate tricuspid regurgitation. Pulmonic Valve: Pulmonic valve not well visualized. No evidence of pulmonic regurgitation. Pericardium: Normal pericardium with no significant pericardial effusion. Trivial pericardial effusion. Pleural effusion seen. Aorta: Normal aortic root. IVC: The IVC is not well visualized. Conclusions: Normal left ventricular cavity size. Normal left ventricular wall thickness. Severe left ventricular systolic dysfunction. Global hypokinesis with better motion at the bases. Ejection fraction is visually estimated at 25-30 %. Tissue Doppler/Mitral Doppler indices are indeterminate in this study due to the presence of atrial fibrillation. Moderate mitral valve regurgitation. Aortic sclerosis without significant stenosis. There is moderate tricuspid regurgitation. There is severe enlargement of left atrium.There is severe enlargement of right atrium. Pleural effusion seen. The estimated Peak RVSP is 48 mmHg plus RA pressure. The IVC is not well visualized. Electronically Signed By: Angel Odell 2019-03-30 14:45:11 PDT
--- NOTE | 2019-03-30 15:09 | CONS ---
DATE OF ADMISSION: 03/29/2019 DATE OF CONSULTATION: 03/30/2019 REASON FOR CONSULTATION: Ventilator management. Thank you, Dr. Chu, for this consultation. HISTORY OF PRESENT ILLNESS: This is a 64-year-old lady with a history of hemorrhagic cerebrovascular accident status post craniectomy in the past and evacuation with subsequent encephalopathy requiring mechanical ventilation, tracheostomy, has been a resident of group home facility for the past y ear, recent admission to [facility] for ESBL UTI. Yesterday transferred to [facility] Emergency Room for increasing heart rate, congestion and respiratory distress. Found to be in atrial fibrillation with rapid ventricular rate, positive urinalysis, requiring rate control , initiation of antibiotics and fluid resuscitation. The patient is nonverbal, unable to give us fur ther history. PAST MEDICAL HISTORY: 1. Subdural hematoma status post evacuation. 2. Encephalopathy. 3. Vent dependent respiratory failure. 4. Dysphagia with G-tube. 5. Atrial fibrillation. 6. Chronic diastolic heart failure. MEDICATIONS: Per chart. ALLERGIES 1. PENICILLIN. 2. VANCOMYCIN. SOCIAL HISTORY: She is a nonsmoker, no alcohol, no history of drug use. FAMILY HISTORY: Noncontributory. SYSTEMS REVIEW: A 12-point review of systems was negative other than that mentioned above. PHYSICAL EXAMINATION: GENERAL: A chronically ill-appearing lady, on mechanical ventilation via tracheostomy. VITAL SIGNS: Currently afebrile, pulse is 130, blood pressure 108/84, O2 saturation 96%, FIO2 of 30% . NECK: Supple. No JVD or lymphadenopathy. CARDIAC: Sounds 1 and 2, no added sounds or murmurs. CHEST: Diminished air entry bilaterally. ABDOMEN: Soft, nontender. No guarding or rebound. EXTREMITIES: No cyanosis, clubbing, edema. NEUROLOGIC: Unable to assess. LABORATORY DATA: White count 5.3, hemoglobin 8.5, platelets of 146. Potassium today was 2. BUN 9, creatinine 0.27. Lactic acid 1.4. ABG: pH 7.45, pCO2 of 33, pO2 of 104. IMPRESSION: 1. Ventilator-dependent respiratory failure with encephalopathy. 2. Subdural hematoma status post evacuation. 3. Urinary tract infection with recent extended spectrum beta lactamase. 4. Atrial fibrillation with rapid ventricular rate. 5. Dysphagia with G-tube. PLAN: 1. Continue mechanical ventilation. 2. Tube feeding as tolerated. 3. Antibiotics per infectious diseases pending cultures. 4. Rate control per cardiology. Currently on amiodarone. 5. Tube feeding as tolerated. 6. Deep venous thrombosis and GI prophylaxis. Dictated By: MICHAEL FONTAINE MD SV/INDIGO Conf#: [id number] DID#: [id number] CC: ANISH CHU MD;*EndCC*
--- NOTE | 2019-03-30 15:14 | CONS ---
Assessment/Plan Assessment/Plan Hospital Course (Demo Recall) Paroxysmal atrial fibrillation with RVR: On an odd dose of Eliquis 2.5mg daily but with h/o SDH and likely no clinical effect from recurrent stroke, will assume someone has addressed this dose as outpt. Presented in RVR, now back in sinus after amiodarone drip Acute on ?chronic systolic heart failure: Decompensated on exam and by CXR. Also with low albumin which is contributing Cardiomyopathy: EF 25-30%. ?etiology. 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 Will switch to PO tomorrow -start lasix 40mg IV BID -start coreg 12.5mg BID -start lisinopril 5mg -continue Eliquis Consultation Date/Type/Reason Admit Date/Time Mar 29, 2019 at 13:25 Date of Consultation: Mar 30, 2019 Type of Consult Cardiology Reason for Consultation AFib, CHF Requesting Provider: ANISH STRINGER MD Date/Time of Note DATE: 03/30/19 TIME: 14:56 Hx of Present Illness 64 yo F with a h/o CHF, paroxysmal atrial fibrillation on Eliquis 2.5mg daily, vegetative state/encephalopathy due to prior CVA and SDG, SDH 2017 s/p evacuation, chronic VDRF/trached, HTN, seizures, who was brought in from her SNF due to respiratory failure. She was found to have afib with RVR. She was oln a diltiazem drip but unable to control her HR. She was switched to amiodarone and this am converted to sinus. Her CXR shows significant pulm edema. She is unresponsive at baseline. No family at bedside currently. unable to obtain Past Medical History per hpi Home Meds Reported Medications Clonazepam* (Clonazepam*) 0.5 Mg Tablet, 0.5 MG GTB BID, TAB 03/29/19 Potassium Chloride* (Potassium Chloride*) 20 Meq Tablet.er, 20 MEQ GTB DAILY, TAB.SA 03/29/19 Melatonin (Melatonin) 5 Mg Tablet, 5 MG GTB HS, TAB 03/29/19 Lovastatin* (Lovastatin*) 10 Mg Tablet, 10 MG GTB HS, TAB 03/29/19 Levothyroxine Sodium* (Levothyroxine Sodium*) 100 Mcg Tablet, 100 MCG GTB BEFORE BREAKFAST, #30 TAB 03/29/19 Levetiracetam* (Keppra* (Ped)) 100 Mg/Ml Liq, 15 ML GTB Q12H for 30 Days, BOTTLE 03/29/19 Apixaban* (Eliquis*) 2.5 Mg Tablet, 2.5 MG GTB DAILY, TAB 03/29/19 Amlodipine Besylate* (Amlodipine Besylate*) 10 Mg Tablet, 10 MG GTB DAILY, #30 TAB HOLD FOR SBP<110 OR HR<60 03/29/19 Dextran 70/Hypromellose/Pf (ARTIFICIAL TEARS DROPS) 1 Each Droperette, 1 EACH OP Q12H 03/29/19 Acetaminophen* (Acetaminophen*) 500 MG Extra Strength Tablet, 1000 MG GTB Q4H PRN for PAIN LEVEL 4-10, TAB 03/29/19 Acetaminophen* (Tylenol*) 325 Mg Tablet, 650 MG GTB PRN PRN for TRACH TUBE CHANGE, TAB 03/29/19 Acetaminophen* (Tylenol*) 325 Mg Tablet, 650 MG GTB Q4H PRN for MILD PAIN LEVEL 1-3, TAB AND FOR FEVER 101 AND ABOVE 03/29/19 Bisacodyl (Dulcolax) 10 Mg Supp.rect, 10 MG RC DAILY, SUPP.RECT 03/29/19 Sodium Phosphate,Trego-Dibasic (Enema Ready To Use) 133 Ml Enema, 133 ML RC Q2D, ENEMA 03/29/19 Magnesium Hydroxide* (Milk Of Magnesia*) 400 Mg/5 Ml Oral.susp, 30 ML GTB DAILY, ML 03/29/19 Docusate Sodium* (Colace*) 100 Mg Capsule, 100 MG GTB QHS, #30 CAP 03/29/19 Multivit &Minerals/Ferrous Fum (MULTIVITAMIN LIQUID) 9 Mg/15 Ml Liquid, 5 ML GTB DAILY 03/29/19 Ascorbic Acid (Vitamin C) 500 Mg Tab, 500 MG GTB BID, TAB 03/29/19 Ferrous Sulfate* (Ferrous Sulfate*) 220 Mg/5 Ml Solution, 7.5 ML GTB BID, ML 03/29/19 Cran/Vitc/Mannose/Inulin/Brom (Uti-Stat Liquid) 3,875 Mg/30 Ml Liquid, 30 MG GTB DAILY 03/29/19 Cranberry Extract (Cranberry) 425 Mg Capsule, 425 MG GTB BID, CAP 03/29/19 Medications Current Medications Acetaminophen (Tylenol Tab) 650 mg Q4H PRN GTB MILD PAIN LEVEL 1-3; Start 03/29/19 at 14:00 Apixaban (Eliquis) 2.5 mg DAILY GTB Last administered on 03/30/19 08:25; Admin Dose 2.5 MG; Start 03/30/19 at 09:00 Ascorbic Acid (Vitamin C) 500 mg BID GTB Last administered on 03/30/19 08:25; Admin Dose 500 MG; Start 03/29/19 at 21:00 Clonazepam (Klonopin) 0.5 mg BID GTB Last administered on 03/30/19 08:25; Admin Dose 0.5 MG; Start 03/29/19 at 21:00 Levetiracetam (Keppra Liquid) 1,500 mg Q12H GTB Last administered on 03/30/19 14:34; Admin Dose 1,500 MG; Start 03/29/19 at 14:00 Levothyroxine Sodium (Synthroid) 100 mcg BEFORE BREAKFAST GTB Last administered on 03/30/19 06:11; Admin Dose 100 MCG; Start 03/30/19 at 07:00 Magnesium Hydroxide (Milk Of Mag) 30 ml DAILY GTB Last administered on 03/30/19 08:25; Admin Dose 30 ML; Start 03/30/19 at 09:00 Melatonin (Melatonin) 5 mg HS GTB Last administered on 03/29/19 21:12; Admin Dose 5 MG; Start 03/29/19 at 21:00 Docusate Sodium (Colace Liquid Cup) 100 mg QHS GTB Last administered on 03/29/19 21:11; Admin Dose 100 MG; Start 03/29/19 at 21:00 Ondansetron HCl (Zofran Inj) 4 mg Q6H PRN IV NAUSEA AND/OR VOMITING; Start 03/29/19 at 15:00 Ipratropium [place] (Atrovent Hfa) 2 puff Q4H RESP THERAPY INH Last administered on 03/30/19 14:11; Admin Dose 2 PUFF; Start 03/29/19 at 17:00 Ipratropium [place] (Atrovent Hfa) 2 puff Q2H RESP THERAPY PRN INH SHORTNESS OF BREATH; Start 03/29/19 at 15:00 Lorazepam (Ativan) 1 mg Q2H PRN IV ANXIETY; Start 03/29/19 at 15:00 Levofloxacin/ Dextrose 150 ml @ 100 mls/hr Q24H IVPB Last administered on 03/30/19at 13:31; Admin Dose 100 MLS/HR; Start 03/30/19 at 10:30 Atorvastatin Calcium (Lipitor) 10 mg DAILY@21 PO Last administered on 03/29/19at 21:12; Admin Dose 10 MG; Start 03/29/19 at 21:00 Multivitamins/ Minerals (Theragran-M) 1 tab DAILY PO Last administered on 03/30/19at 08:25; Admin Dose 1 TAB; Start 03/30/19 at 09:00 Eye Lubricant (Artificial Tears Oph) 1 drop Q12H PRN BOTH EYES DRY EYES; Start 03/29/19 at 18:30 Ferrous Sulfate (Feosol Liquid Cup) 300 mg BID GTB Last administered on 03/30/19at 08:25; Admin Dose 300 MG; Start 03/29/19 at 21:00 Amiodarone HCl 900 mg/Dextrose 500 ml @ 0 mls/hr Q0M IV Last administered on 03/30/19at 03:16; Admin Dose 33.3 MLS/HR; Start 03/30/19 at 03:00 Diltiazem HCl (Cardizem Iv) 5 mg Q4 PRN IV HR >110; Start 03/30/19 at 10:30 Allergies: Coded Allergies: Penicillins (Verified Allergy, Intermediate, Hives, 03/29/19) vancomycin (Verified Allergy, Intermediate, Hives, 03/29/19) Past Surgical History Past Surgical Hx: other (Right mastectomy, left subdural evacuation, trach/peg) Social History Alcohol Use: none Smoking Status: Never smoker Drug Use: none Exam/Review of Systems Vital Signs Vitals Vital Signs Date Temp Pulse Resp B/P (MAP) Pulse Ox O2 O2 Flow FiO2 Time Delivery Rate 03/30/19 114 12:00 03/30/19 97.6 18 139/74 98 Mechanical 12:00 (95) Ventilator 03/30/19 30 11:20 Intake and Output 03/29/19 03/29/19 03/30/19 1515:00 23:00 07:00 IntakeIntake Total 120 ml 484.9 ml OutputOutput Total 90 ml 175 ml BalanceBalance 30 ml 309.9 ml Exam Constitutional: No alert Head: normocephalic, atraumatic ENMT: other (s/p trach) Neck: No jvd (unabel to assess) Respiratory: diminished breath sounds; No clear to auscultation Cardiovascular: regular rate and rhythm, edema (1+ sacrum); No systolic murmur Gastrointestinal: soft; No distended Musculoskeletal: No nl extremities to inspection Neurological: No nl mental status, No nl speech Labs Result Diagram: 03/30/19 0430 03/30/19 1326 Results 24hrs Laboratory Tests Test 03/30/19 04:30 03/30/19 13:26 White Blood Count 5.3 # Red Blood Count 2.97 #L Hemoglobin 8.5 #L Hematocrit 25.6 #L Mean Corpuscular Volume 86.2 Mean Corpuscular Hemoglobin 28.6 L Mean Corpuscular Hemoglobin Concent 33.2 Red Cell Distribution Width 13.8 Platelet Count 146 # Mean Platelet Volume 13.2 H Immature Granulocytes % 0.600 H Neutrophils % 58.6 Lymphocytes % 18.4 Monocytes % 16.7 H Eosinophils % 4.9 Basophils % 0.8 Nucleated Red Blood Cells % 0.0 Immature Granulocytes # 0.030 Neutrophils # 3.1 Lymphocytes # 1.0 Monocytes # 0.9 Eosinophils # 0.3 Basophils # 0.0 Nucleated Red Blood Cells # 0.0 Sodium Level 145 H 139 Potassium Level 2.0 #*L 5.0 # Chloride Level 123 H 108 # Carbon Dioxide Level 17 L 23 Anion Gap 5 8 Blood Urea Nitrogen 9 # 15 Creatinine 0.27 L 0.41 L Glucose Level 110 185 Hemoglobin A1c 6.0 H Calcium Level 4.8 *L 8.5 Phosphorus Level 2.2 L Magnesium Level 2.0 Albumin 1.8 #L Thyroid Stimulating Hormone (TSH) 3.140 Est Glomerular Filtrat Rate mL/min > 60 Medications Medications Current Medications Acetaminophen (Tylenol Tab) 650 mg Q4H PRN GTB MILD PAIN LEVEL 1-3; Start 03/29/19 at 14:00 Apixaban (Eliquis) 2.5 mg DAILY GTB Last administered on 03/30/19 08:25; Admin Dose 2.5 MG; Start 03/30/19 at 09:00 Ascorbic Acid (Vitamin C) 500 mg BID GTB Last administered on 03/30/19 08:25; Admin Dose 500 MG; Start 03/29/19 at 21:00 Clonazepam (Klonopin) 0.5 mg BID GTB Last administered on 03/30/19 08:25; Admin Dose 0.5 MG; Start 03/29/19 at 21:00 Levetiracetam (Keppra Liquid) 1,500 mg Q12H GTB Last administered on 03/30/19 14:34; Admin Dose 1,500 MG; Start 03/29/19 at 14:00 Levothyroxine Sodium (Synthroid) 100 mcg BEFORE BREAKFAST GTB Last administered on 03/30/19 06:11; Admin Dose 100 MCG; Start 03/30/19 at 07:00 Magnesium Hydroxide (Milk Of Mag) 30 ml DAILY GTB Last administered on 03/30/19 08:25; Admin Dose 30 ML; Start 03/30/19 at 09:00 Melatonin (Melatonin) 5 mg HS GTB Last administered on 03/29/19 21:12; Admin Dose 5 MG; Start 03/29/19 at 21:00 Docusate Sodium (Colace Liquid Cup) 100 mg QHS GTB Last administered on 03/29/19 21:11; Admin Dose 100 MG; Start 03/29/19 at 21:00 Ondansetron HCl (Zofran Inj) 4 mg Q6H PRN IV NAUSEA AND/OR VOMITING; Start 03/29/19 at 15:00 Ipratropium [place] (Atrovent Hfa) 2 puff Q4H RESP THERAPY INH Last administered on 03/30/19 14:11; Admin Dose 2 PUFF; Start 03/29/19 at 17:00 Ipratropium [place] (Atrovent Hfa) 2 puff Q2H RESP THERAPY PRN INH SHORTNESS OF BREATH; Start 03/29/19 at 15:00 Lorazepam (Ativan) 1 mg Q2H PRN IV ANXIETY; Start 03/29/19 at 15:00 Levofloxacin/ Dextrose 150 ml @ 100 mls/hr Q24H IVPB Last administered on 6/30/19at 13:31; Admin Dose 100 MLS/HR; Start 03/30/19 at 10:30 Atorvastatin Calcium (Lipitor) 10 mg DAILY@21 PO Last administered on 03/29/19at 21:12; Admin Dose 10 MG; Start 03/29/19 at 21:00 Multivitamins/ Minerals (Theragran-M) 1 tab DAILY PO Last administered on 03/30/19 08:25; Admin Dose 1 TAB; Start 03/30/19 at 09:00 Eye Lubricant (Artificial Tears Oph) 1 drop Q12H PRN BOTH EYES DRY EYES; Start 03/29/19 at 18:30 Ferrous Sulfate (Feosol Liquid Cup) 300 mg BID GTB Last administered on 03/30/19at 08:25; Admin Dose 300 MG; Start 03/29/19 at 21:00 Amiodarone HCl 900 mg/Dextrose 500 ml @ 0 mls/hr Q0M IV Last administered on 03/30/19 03:16; Admin Dose 33.3 MLS/HR; Start 03/30/19 at 03:00 Diltiazem HCl (Cardizem Iv) 5 mg Q4 PRN IV HR >110; Start 03/30/19 at 10:30 MIREYA ZAMARRIPA Mar 30, 2019 15:13
[2019-03-30] MEDS: FUROSEMIDE 40 MG INJ IV SCH ×2 (15:42→21:48)
[2019-03-30] MEDS: DOCUSATE SODIUM 10 MG/ML (10ML CUP) GTB SCH (20:23)
[2019-03-30] MEDS: MELATONIN 5 MG TABLET GTB SCH (20:24)
[2019-03-30] MEDS: ATORVASTATIN 10 MG TAB PO SCH (20:24)
[2019-03-31] VITALS (56 sets, daily range): BP systolic 80–164; BP diastolic 37–136; PULSE 59–76; RESP 14–24
[2019-03-31] MEDS: AMIODARONE 900 MG in DEXTROSE 5% 482 ML IV SCH (01:27)
[2019-03-31] MEDS: LEVETIRACETAM (100 MG/ML) 5ML CUP GTB SCH ×2 (01:32→13:17)
[2019-03-31] MEDS: IPRATROPIUM (HFA) 12.9 GM INHALER INH SCH ×6 (01:52→21:43)
[2019-03-31] MEDS: LEVOTHYROXINE 100 MCG TAB GTB SCH (06:12)
[2019-03-31] MEDS: FUROSEMIDE 40 MG INJ IV SCH ×2 (06:12→17:06)
[2019-03-31] MEDS: POTASSIUM CHLORIDE 100 ML IVPB SCH ×2 (07:59→12:15)
[2019-03-31] MEDS: MAGNESIUM HYDROXIDE 30ML CUP GTB SCH (08:01)
[2019-03-31] MEDS: APIXABAN 5 MG TABLET GTB SCH (08:01)
[2019-03-31] MEDS: ASCORBIC ACID 500 MG TAB GTB SCH ×2 (08:01→20:46)
[2019-03-31] MEDS: clonAZEPAM 0.5 MG TAB GTB SCH ×2 (08:01→20:47)
[2019-03-31] MEDS: FERROUS SULFATE 60 MG/ML 5ML CUP GTB SCH ×2 (08:01→20:46)
[2019-03-31] MEDS: MULTIVITAMINS/MINERALS TAB PO SCH (08:01)
[2019-03-31] MEDS: LISINOPRIL 5 MG TAB PO SCH (08:02)
--- NOTE | 2019-03-31 09:50 | CONS ---
Consult Date/Type/Reason Admit Date/Time Mar 29, 2019 at 13:25 Initial Consult Date 03/30/19 Type of Consult Pulmonary Requesting Provider: ANISH STRINGER MD Date/Time of Note DATE: 03/31/19 TIME: 09:49 Subjective Patient currently stable on mechanical ventilation. Continues amiodarone drip currently hemodynamically stable no vasopressor support. Continues mechanical ventilation via tracheostomy. Objective Vital Signs Date Temp Pulse Resp B/P (MAP) Pulse Ox O2 O2 Flow FiO2 Time Delivery Rate 03/31/19 65 19 136/68 99 09:00 (90) 03/31/19 30 08:00 03/31/19 98.7 Mechanical 08:00 Ventilator Intake and Output 03/30/19 03/30/19 03/31/19 1515:00 23:00 07:00 IntakeIntake Total 1136.8 ml 913.6 ml 754.9 ml OutputOutput Total 160 ml 1830 ml 1550 ml BalanceBalance 976.8 ml -916.4 ml -795.1 ml Exam PHYSICAL EXAMINATION: GENERAL: A chronically ill-appearing lady, on mechanical ventilation via tracheostomy. VITAL SIGNS: NECK: Supple. No JVD or lymphadenopathy. CARDIAC: Sounds 1 and 2, no added sounds or murmurs. CHEST: Diminished air entry bilaterally. ABDOMEN: Soft, nontender. No guarding or rebound. EXTREMITIES: No cyanosis, clubbing, edema. NEUROLOGIC: Unable to assess. Vent Setting Ventilator Support Mode: AC Fraction of Inspired Oxygen pe: 30 Positive End Expiratory Pressu: 5.0 Results/Medications Result Diagram: 03/31/19 0430 03/31/19 0430 Results 24 hrs Laboratory Tests Test 03/30/19 13:26 03/31/19 04:30 Sodium Level 139 142 Potassium Level 5.0 # 3.1 L Chloride Level 108 # 106 Carbon Dioxide Level 23 28 Anion Gap 8 8 Blood Urea Nitrogen 15 14 Creatinine 0.41 L 0.41 L Est Glomerular Filtrat Rate mL/min > 60 Glucose Level 185 137 # Calcium Level 8.5 7.7 L White Blood Count 5.4 Red Blood Count 3.65 #L Hemoglobin 10.2 L Hematocrit 30.8 #L Mean Corpuscular Volume 84.4 Mean Corpuscular Hemoglobin 27.9 L Mean Corpuscular Hemoglobin Concent 33.1 Red Cell Distribution Width 13.7 Platelet Count 198 # Mean Platelet Volume 12.9 H Immature Granulocytes % 0.900 H Neutrophils % 54.9 Lymphocytes % 23.5 Monocytes % 14.5 H Eosinophils % 5.1 Basophils % 1.1 Nucleated Red Blood Cells % 0.0 Immature Granulocytes # 0.050 H Neutrophils # 3.0 Lymphocytes # 1.3 Monocytes # 0.8 Eosinophils # 0.3 Basophils # 0.1 Nucleated Red Blood Cells # 0.0 Phosphorus Level 3.1 Magnesium Level 2.1 Albumin 2.9 #L Medications Current Medications Acetaminophen (Tylenol Tab) 650 mg Q4H PRN GTB MILD PAIN LEVEL 1-3; Start 03/29/19 at 14:00 Apixaban (Eliquis) 2.5 mg DAILY GTB Last administered on 03/31/19 08:01; Admin Dose 2.5 MG; Start 03/30/19 at 09:00 Ascorbic Acid (Vitamin C) 500 mg BID GTB Last administered on 03/31/19 08:01; Admin Dose 500 MG; Start 03/29/19 at 21:00 Clonazepam (Klonopin) 0.5 mg BID GTB Last administered on 03/31/19 08:01; Admin Dose 0.5 MG; Start 03/29/19 at 21:00 Levetiracetam (Keppra Liquid) 1,500 mg Q12H GTB Last administered on 03/31/19 01:32; Admin Dose 1,500 MG; Start 03/29/19 at 14:00 Levothyroxine Sodium (Synthroid) 100 mcg BEFORE BREAKFAST GTB Last administered on 03/31/19 06:12; Admin Dose 100 MCG; Start 03/30/19 at 07:00 Magnesium Hydroxide (Milk Of Mag) 30 ml DAILY GTB Last administered on 03/31/19 08:01; Admin Dose 30 ML; Start 03/30/19 at 09:00 Melatonin (Melatonin) 5 mg HS GTB Last administered on 03/30/19 20:24; Admin Dose 5 MG; Start 03/29/19 at 21:00 Docusate Sodium (Colace Liquid Cup) 100 mg QHS GTB Last administered on 03/03 20:23; Admin Dose 100 MG; Start 03/29/19 at 21:00 Ondansetron HCl (Zofran Inj) 4 mg Q6H PRN IV NAUSEA AND/OR VOMITING; Start 03/29/19 at 15:00 Ipratropium [place] (Atrovent Hfa) 2 puff Q4H RESP THERAPY INH Last administered on 03/31/19at 09:04; Admin Dose 2 PUFF; Start 03/29/19 at 17:00 Ipratropium [place] (Atrovent Hfa) 2 puff Q2H RESP THERAPY PRN INH SHORTNESS OF BREATH; Start 03/29/19 at 15:00 Lorazepam (Ativan) 1 mg Q2H PRN IV ANXIETY Last administered on 03/30/19 20:21; Admin Dose 1 MG; Start 03/29/19 at 15:00 Levofloxacin/ Dextrose 150 ml @ 100 mls/hr Q24H IVPB Last administered on 03/30/19 13:31; Admin Dose 100 MLS/HR; Start 03/30/19 at 10:30 Atorvastatin Calcium (Lipitor) 10 mg DAILY@21 PO Last administered on 03/30/19 20:24; Admin Dose 10 MG; Start 03/29/19 at 21:00 Multivitamins/ Minerals (Theragran-M) 1 tab DAILY PO Last administered on 03/31/19 08:01; Admin Dose 1 TAB; Start 03/30/19 at 09:00 Eye Lubricant (Artificial Tears Oph) 1 drop Q12H PRN BOTH EYES DRY EYES; Start 03/29/19 at 18:30 Ferrous Sulfate (Feosol Liquid Cup) 300 mg BID GTB Last administered on 03/31/19at 08:01; Admin Dose 300 MG; Start 03/29/19 at 21:00 Amiodarone HCl 900 mg/Dextrose 500 ml @ 0 mls/hr Q0M IV Last administered on 03/31/19 01:27; Admin Dose 16.7 MLS/HR; Start 03/30/19 at 03:00 Diltiazem HCl (Cardizem Iv) 5 mg Q4 PRN IV HR >110; Start 03/30/19 at 10:30 Furosemide (Lasix) 40 mg BID DIURETICS IV Last administered on 03/31/19at 06:12; Admin Dose 40 MG; Start 03/30/19 at 15:00 Carvedilol (Coreg) 12.5 mg BID GTB Last administered on 03/31/19at 08:02; Admin Dose 12.5 MG; Start 03/30/19 at 21:00 Lisinopril (Zestril) 5 mg DAILY PO Last administered on 03/31/19at 08:02; Admin Dose 5 MG; Start 03/31/19 at 09:00 Potassium Chloride 100 ml @ 50 mls/hr Q2H IVPB Last administered on 03/31/19at 07:59; Admin Dose 50 MLS/HR; Start 03/31/19 at 07:30; Stop 03/31/19 at 11:29 Assessment/Plan Hospital Course (Demo Recall) IMPRESSION: 1. Ventilator-dependent respiratory failure with encephalopathy. 2. Subdural hematoma status post evacuation. 3. Urinary tract infection with recent extended spectrum beta lactamase. 4. Atrial fibrillation with rapid ventricular rate. 5. Dysphagia with G-tube. PLAN: 1. Continue mechanical ventilation. 2. Tube feeding as tolerated. 3. Antibiotics per infectious diseases pending cultures. 4. Rate control per cardiology. Currently on amiodarone. 5. Tube feeding as tolerated. 6. Deep venous thrombosis and GI prophylaxis. Critical care time 40 minutes. MICHAEL FONTAINE MD, [facility] Mar 31, 2019 09:50
--- NOTE | 2019-03-31 10:14 | PN ---
Date/Time of Note Date/Time of Note DATE: 03/31/19 TIME: 10:14 Objective Vitals Vital Signs Date Temp Pulse Resp B/P (MAP) Pulse Ox O2 O2 Flow FiO2 Time Delivery Rate 03/31/19 62 14 123/64 98 09:30 (83) 03/31/19 30 08:00 03/31/19 98.7 Mechanical 08:00 Ventilator Intake and Output 03/30/19 03/30/19 03/31/19 1515:00 23:00 07:00 IntakeIntake Total 1136.8 ml 913.6 ml 754.9 ml OutputOutput Total 160 ml 1830 ml 1550 ml BalanceBalance 976.8 ml -916.4 ml -795.1 ml Results Result Diagram: 03/31/1942903/31/19 043 Medications Medications Current Medications Acetaminophen (Tylenol Tab) 650 mg Q4H PRN GTB MILD PAIN LEVEL 1-3; Start 03/29/19 at 14:00 Apixaban (Eliquis) 2.5 mg DAILY GTB Last administered on 03/31/19 08:01; Admin Dose 2.5 MG; Start 03/30/19 at 09:00 Ascorbic Acid (Vitamin C) 500 mg BID GTB Last administered on 03/31/19 08:01; Admin Dose 500 MG; Start 03/29/19 at 21:00 Clonazepam (Klonopin) 0.5 mg BID GTB Last administered on 03/31/19 08:01; Admin Dose 0.5 MG; Start 03/29/19 at 21:00 Levetiracetam (Keppra Liquid) 1,500 mg Q12H GTB Last administered on 03/31/19 01:32; Admin Dose 1,500 MG; Start 03/29/19 at 14:00 Levothyroxine Sodium (Synthroid) 100 mcg BEFORE BREAKFAST GTB Last administered on 03/31/19 06:12; Admin Dose 100 MCG; Start 03/30/19 at 07:00 Magnesium Hydroxide (Milk Of Mag) 30 ml DAILY GTB Last administered on 03/31/19 08:01; Admin Dose 30 ML; Start 03/30/19 at 09:00 Melatonin (Melatonin) 5 mg HS GTB Last administered on 03/30/19at 20:24; Admin Dose 5 MG; Start 03/29/19 at 21:00 Docusate Sodium (Colace Liquid Cup) 100 mg QHS GTB Last administered on 03/30/19 20:23; Admin Dose 100 MG; Start 03/29/19 at 21:00 Ondansetron HCl (Zofran Inj) 4 mg Q6H PRN IV NAUSEA AND/OR VOMITING; Start 03/29/19 at 15:00 Ipratropium [place] (Atrovent Hfa) 2 puff Q4H RESP THERAPY INH Last administered on 03/31/19 09:04; Admin Dose 2 PUFF; Start 03/29/19 at 17:00 Ipratropium [place] (Atrovent Hfa) 2 puff Q2H RESP THERAPY PRN INH SHORTNESS OF BREATH; Start 03/29/19 at 15:00 Lorazepam (Ativan) 1 mg Q2H PRN IV ANXIETY Last administered on 03/30/19 20:21; Admin Dose 1 MG; Start 03/29/19 at 15:00 Levofloxacin/ Dextrose 150 ml @ 100 mls/hr Q24H IVPB Last administered on 03/30/19 13:31; Admin Dose 100 MLS/HR; Start 03/30/19 at 10:30 Atorvastatin Calcium (Lipitor) 10 mg DAILY@21 PO Last administered on 03/30/19 20:24; Admin Dose 10 MG; Start 03/29/19 at 21:00 Multivitamins/ Minerals (Theragran-M) 1 tab DAILY PO Last administered on 03/31/19 08:01; Admin Dose 1 TAB; Start 03/30/19 at 09:00 Eye Lubricant (Artificial Tears Oph) 1 drop Q12H PRN BOTH EYES DRY EYES; Start 03/29/19 at 18:30 Ferrous Sulfate (Feosol Liquid Cup) 300 mg BID GTB Last administered on 03/31/19 08:01; Admin Dose 300 MG; Start 03/29/19 at 21:00 Diltiazem HCl (Cardizem Iv) 5 mg Q4 PRN IV HR >110; Start 03/30/19 at 10:30 Furosemide (Lasix) 40 mg BID DIURETICS IV Last administered on 03/31/19 06:12; Admin Dose 40 MG; Start 03/30/19 at 15:00 Carvedilol (Coreg) 12.5 mg BID GTB Last administered on 03/31/19at 08:02; Admin Dose 12.5 MG; Start 03/30/19 at 21:00 Lisinopril (Zestril) 5 mg DAILY PO Last administered on 03/31/19at 08:02; Admin Dose 5 MG; Start 03/31/19 at 09:00 Potassium Chloride 100 ml @ 50 mls/hr Q2H IVPB Last administered on 03/31/19at 07:59; Admin Dose 50 MLS/HR; Start 03/31/19 at 07:30; Stop 03/31/19 at 11:29 Amiodarone HCl (Cordarone) 400 mg BID PO ; Start 03/31/19 at 10:30; Status UNV Potassium Chloride (Potassium Chloride Pwd/Soln) 40 meq ONCE ONCE NGT ; Start 03/31/19 at 10:30; Stop 03/31/19 at 10:31; Status UNV VTE Prophylaxis Risk score (from Ns)>0 risk: 8 SCD applied (from Ns): Yes Lines/Catheters IV Catheter Type: Adams in Place: No Assessment/Plan Hospital Course Subjective No acute changes, questionable tic movements overnight, heart rate has been stable Objective Physical exam General: Patient is laying in bed trach to vent Mentation: Patient is occasionally arousable however not oriented, Head: Normocephalic atraumatic Eyes: EOMI, pupils reactive to light Neck: Supple, nontender, midline Respiratory: Clear to auscultation bilaterally Cardiovascular: regular rate, no obvious murmurs Gastrointestinal: non-tender to palpation, bowel sounds heard. Neurological: Cannot properly assess due to mentation Skin: No new skin lesions Assessment/Plan 1. Acute on chronic hypoxic respiratory failure- stable - most likely secondary to pulmonary congestion - repeat CXR as needed - Continue on mechanical ventilation, [facility] - Pulmonology consulted for vent management - Nebs on board 2. Acute on chronic diastolic heart failure - Continue on Lasix and monitor I/O and daily weights - BNP elevated - CXR noted for pulm congestion - Cardiology consulted 3. Afib with RVR, resolving -Patient's IV medications will now be switched over to oral medications per cytogeneticist - Continue on Eliquis at the current unique dose due to history of subdural h emorrhage 4. UTI - hx ESBL per [facility] records - ID consultation appreciated - Urine cx showing gram neg rods - IV antibiotics 5. 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 Diabetes Mellitus - check A1c 7. hypothyroidism - TSH within normal limits - continue levothyroxine 8. HTN 9. GERD - PPI 10. h/o CVA with L residual weakness 11. Seizures - continue keppra -Ativan as needed -We will consult neurology for breakthrough seizures 12. h/o breast CA s/p mastectomy 13. Disposition - Cardiology recs on afib with RVR and CHF exacerbation appreicated - will continue current care and awaiting urine cx sensitivities More than 40 minutes of critical care time was spent on this evaluation ROMEO DURAND Mar 31, 2019 10:14
[2019-03-31] MEDS: LEVOFLOXACIN 750MG/D5W (PMX) 150 ML IVPB SCH (10:26)
[2019-03-31] MEDS ORDERED: POTASSIUM CHLORIDE 20 MEQ POWDER FOR ORAL SOLN NGT ONE (10:30)
[2019-03-31] MEDS: AMIODARONE 200 MG TAB PO SCH ×2 (11:16→20:47)
--- NOTE | 2019-03-31 11:30 | CONS ---
Assessment/Plan Assessment/Plan Hospital Course (Demo Recall) Paroxysmal atrial fibrillation with RVR: On an odd dose of Eliquis 2.5mg daily but with h/o SDH and likely no clinical effect from recurrent stroke, will assume someone has addressed this dose as outpt. Presented in RVR, now back in sinus after amiodarone drip Acute on ?chronic systolic heart failure: Decompensated on exam and by CXR. Also with low albumin which is contributing. Improving Cardiomyopathy: EF 25-30%. ?etiology. 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 Possibly decrease tomorrow -coreg 12.5mg BID -lisinopril 5mg -continue Eliquis Consultation Date/Type/Reason Admit Date/Time Mar 29, 2019 at 13:25 Initial Consult Date 03/30/19 Type of Consult Cardiology Requesting Provider: ANISH STRINGER MD Date/Time of Note DATE: 03/31/19 TIME: 11:28 24 HR Interval Summary Free Text/Dictation Remains in sinus. Diuresing well. CXR better Exam/Review of Systems Vital Signs Vitals Vital Signs Date Temp Pulse Resp B/P (MAP) Pulse Ox O2 O2 Flow FiO2 Time Delivery Rate 03/31/19 62 14 123/64 98 09:30 (83) 03/31/19 30 08:00 03/31/19 98.7 Mechanical 08:00 Ventilator Intake and Output 03/30/19 03/30/19 03/31/19 1515:00 23:00 07:00 IntakeIntake Total 1136.8 ml 913.6 ml 754.9 ml OutputOutput Total 160 ml 1830 ml 1550 ml BalanceBalance 976.8 ml -916.4 ml -795.1 ml Exam Constitutional: No alert, No oriented Neck: No jvd (unabel to assess) Respiratory: diminished breath sounds; No clear to auscultation Cardiovascular: regular rate and rhythm, edema (1+ sacrum) Gastrointestinal: soft; No distended Neurological: No nl mental status, No nl speech Labs Result Diagram: 03/31/19 0430 03/31/19 0430 Results 24hrs Laboratory Tests Test 03/30/19 13:26 03/31/19 04:30 Sodium Level 139 142 Potassium Level 5.0 # 3.1 L Chloride Level 108 # 106 Carbon Dioxide Level 23 28 Anion Gap 8 8 Blood Urea Nitrogen 15 14 Creatinine 0.41 L 0.41 L Est Glomerular Filtrat Rate mL/min > 60 Glucose Level 185 137 # Calcium Level 8.5 7.7 L White Blood Count 5.4 Red Blood Count 3.65 #L Hemoglobin 10.2 L Hematocrit 30.8 #L Mean Corpuscular Volume 84.4 Mean Corpuscular Hemoglobin 27.9 L Mean Corpuscular Hemoglobin Concent 33.1 Red Cell Distribution Width 13.7 Platelet Count 198 # Mean Platelet Volume 12.9 H Immature Granulocytes % 0.900 H Neutrophils % 54.9 Lymphocytes % 23.5 Monocytes % 14.5 H Eosinophils % 5.1 Basophils % 1.1 Nucleated Red Blood Cells % 0.0 Immature Granulocytes # 0.050 H Neutrophils # 3.0 Lymphocytes # 1.3 Monocytes # 0.8 Eosinophils # 0.3 Basophils # 0.1 Nucleated Red Blood Cells # 0.0 Phosphorus Level 3.1 Magnesium Level 2.1 Albumin 2.9 #L Medications Medications Current Medications Acetaminophen (Tylenol Tab) 650 mg Q4H PRN GTB MILD PAIN LEVEL 1-3; Start 03/29/19 at 14:00 Apixaban (Eliquis) 2.5 mg DAILY GTB Last administered on 03/31/19at 08:01; Admin Dose 2.5 MG; Start 03/30/19 at 09:00 Ascorbic Acid (Vitamin C) 500 mg BID GTB Last administered on 03/31/19at 08:01; Admin Dose 500 MG; Start 03/29/19 at 21:00 Clonazepam (Klonopin) 0.5 mg BID GTB Last administered on 03/31/19at 08:01; Admin Dose 0.5 MG; Start 03/29/19 at 21:00 Levetiracetam (Keppra Liquid) 1,500 mg Q12H GTB Last administered on 03/31/19at 01:32; Admin Dose 1,500 MG; Start 03/29/19 at 14:00 Levothyroxine Sodium (Synthroid) 100 mcg BEFORE BREAKFAST GTB Last administered on 03/31/19 06:12; Admin Dose 100 MCG; Start 03/30/19 at 07:00 Magnesium Hydroxide (Milk Of Mag) 30 ml DAILY GTB Last administered on 03/31/19 08:01; Admin Dose 30 ML; Start 03/30/19 at 09:00 Melatonin (Melatonin) 5 mg HS GTB Last administered on 03/30/19 20:24; Admin Dose 5 MG; Start 03/29/19 at 21:00 Docusate Sodium (Colace Liquid Cup) 100 mg QHS GTB Last administered on 03/30/19 20:23; Admin Dose 100 MG; Start 03/29/19 at 21:00 Ondansetron HCl (Zofran Inj) 4 mg Q6H PRN IV NAUSEA AND/OR VOMITING; Start 03/29/19 at 15:00 Ipratropium [place] (Atrovent Hfa) 2 puff Q4H RESP THERAPY INH Last administered on 03/31/19 09:04; Admin Dose 2 PUFF; Start 03/29/19 at 17:00 Ipratropium [place] (Atrovent Hfa) 2 puff Q2H RESP THERAPY PRN INH SHORTNESS OF BREATH; Start 03/29/19 at 15:00 Lorazepam (Ativan) 1 mg Q2H PRN IV ANXIETY Last administered on 03/30/19 20:21; Admin Dose 1 MG; Start 03/29/19 at 15:00 Levofloxacin/ Dextrose 150 ml @ 100 mls/hr Q24H IVPB Last administered on 03/31/19 10:26; Admin Dose 100 MLS/HR; Start 03/30/19 at 10:30 Atorvastatin Calcium (Lipitor) 10 mg DAILY@21 PO Last administered on 03/30/19 20:24; Admin Dose 10 MG; Start 03/29/19 at 21:00 Multivitamins/ Minerals (Theragran-M) 1 tab DAILY PO Last administered on 03/31/19 08:01; Admin Dose 1 TAB; Start 03/30/19 at 09:00 Eye Lubricant (Artificial Tears Oph) 1 drop Q12H PRN BOTH EYES DRY EYES; Start 03/29/19 at 18:30 Ferrous Sulfate (Feosol Liquid Cup) 300 mg BID GTB Last administered on 7/1/19at 08:01; Admin Dose 300 MG; Start 03/29/19 at 21:00 Diltiazem HCl (Cardizem Iv) 5 mg Q4 PRN IV HR >110; Start 03/30/19 at 10:30 Furosemide (Lasix) 40 mg BID DIURETICS IV Last administered on 03/31/19at 06:12; Admin Dose 40 MG; Start 03/30/19 at 15:00 Carvedilol (Coreg) 12.5 mg BID GTB Last administered on 03/31/19at 08:02; Admin Dose 12.5 MG; Start 03/30/19 at 21:00 Lisinopril (Zestril) 5 mg DAILY PO Last administered on 03/31/19at 08:02; Admin Dose 5 MG; Start 03/31/19 at 09:00 Potassium Chloride 100 ml @ 50 mls/hr Q2H IVPB Last administered on 03/31/19at 07:59; Admin Dose 50 MLS/HR; Start 03/31/19 at 07:30; Stop 03/31/19 at 11:29 Amiodarone HCl (Cordarone) 400 mg BID PO Last administered on 03/31/19at 11:16; Admin Dose 400 MG; Start 03/31/19 at 10:30 Pantoprazole (Protonix Tab) 40 mg DAILY@06 PO ; Start 03/31/19 at 12:00 MIREYA ZAMARRIPA Mar 31, 2019 11:30
[2019-03-31] MEDS: PANTOPRAZOLE (EC) 40 MG TAB PO SCH (12:15)
--- NOTE | 2019-03-31 14:04 | CONS ---
Assessment/Plan Assessment/Plan Hospital Course (Demo Recall) No acute events patient is off amiodarone drip she looks comfortable no fevers overnight WBC 5.4 no shift no bands BUN 14 creatinine 0.41 Urine culture growing E. coli Chest x-ray revealed pulmonary congestion with small to moderate pleural effusions Indwelling: Trach PEG Adams Allergy: Penicillin, vancomycin Antimicrobials: Levofloxacin Physical examination: Chronically ill-appearing elderly woman who is in no distress. Head atraumatic normocephalic neck is supple chest rise symmetrical breath sounds diminished bases heart: S1-S2. Abdomen soft bowel sounds present. Assessment: 1. Acute on chronic hypoxemic respiratory failure secondary to pulmonary congestion 2. Urinary tract infection, gram-negative rods 3. Atrial fibrillation s/p rapid ventricular response 4. 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 Diabetes 6. Hypertension Plan: Stable, continue antibiotics, vent management per pulmonary, follow cardiology recommendations Consultation Date/Type/Reason Admit Date/Time Mar 29, 2019 at 13:25 Initial Consult Date Type of Consult id Requesting Provider: ANISH STRINGER MD Date/Time of Note DATE: 03/31/19 TIME: 14:03 Exam/Review of Systems Exam Vitals Vital Signs Date Temp Pulse Resp B/P (MAP) Pulse Ox O2 O2 Flow FiO2 Time Delivery Rate 03/31/19 97.7 72 17 127/83 100 Mechanical 12:00 (98) Ventilator 03/31/19 30 11:32 Intake and Output 03/30/19 03/30/19 03/31/19 1515:00 23:00 07:00 IntakeIntake Total 1136.8 ml 913.6 ml 754.9 ml OutputOutput Total 160 ml 1830 ml 1550 ml BalanceBalance 976.8 ml -916.4 ml -795.1 ml Results Result Diagram: 03/31/19 0430 03/31/19 0430 Results 24hrs Laboratory Tests Test 03/31/19 04:30 White Blood Count 5.4 Red Blood Count 3.65 #L Hemoglobin 10.2 L Hematocrit 30.8 #L Mean Corpuscular Volume 84.4 Mean Corpuscular Hemoglobin 27.9 L Mean Corpuscular Hemoglobin Concent 33.1 Red Cell Distribution Width 13.7 Platelet Count 198 # Mean Platelet Volume 12.9 H Immature Granulocytes % 0.900 H Neutrophils % 54.9 Lymphocytes % 23.5 Monocytes % 14.5 H Eosinophils % 5.1 Basophils % 1.1 Nucleated Red Blood Cells % 0.0 Immature Granulocytes # 0.050 H Neutrophils # 3.0 Lymphocytes # 1.3 Monocytes # 0.8 Eosinophils # 0.3 Basophils # 0.1 Nucleated Red Blood Cells # 0.0 Sodium Level 142 Potassium Level 3.1 L Chloride Level 106 Carbon Dioxide Level 28 Anion Gap 8 Blood Urea Nitrogen 14 Creatinine 0.41 L Glucose Level 137 # Calcium Level 7.7 L Phosphorus Level 3.1 Magnesium Level 2.1 Albumin 2.9 #L Medications Medication Current Medications Acetaminophen (Tylenol Tab) 650 mg Q4H PRN GTB MILD PAIN LEVEL 1-3; Start 03/29/19 at 14:00 Apixaban (Eliquis) 2.5 mg DAILY GTB Last administered on 03/31/19 08:01; Admin Dose 2.5 MG; Start 03/30/19 at 09:00 Ascorbic Acid (Vitamin C) 500 mg BID GTB Last administered on 03/31/19 08:01; Admin Dose 500 MG; Start 03/29/19 at 21:00 Clonazepam (Klonopin) 0.5 mg BID GTB Last administered on 03/31/19 08:01; Admin Dose 0.5 MG; Start 03/29/19 at 21:00 Levetiracetam (Keppra Liquid) 1,500 mg Q12H GTB Last administered on 03/31/19 13:17; Admin Dose 1,500 MG; Start 03/29/19 at 14:00 Levothyroxine Sodium (Synthroid) 100 mcg BEFORE BREAKFAST GTB Last administered on 03/31/19 06:12; Admin Dose 100 MCG; Start 03/30/19 at 07:00 Magnesium Hydroxide (Milk Of Mag) 30 ml DAILY GTB Last administered on 03/31/19 08:01; Admin Dose 30 ML; Start 03/30/19 at 09:00 Melatonin (Melatonin) 5 mg HS GTB Last administered on 03/30/19 20:24; Admin Dose 5 MG; Start 03/29/19 at 21:00 Docusate Sodium (Colace Liquid Cup) 100 mg QHS GTB Last administered on 03/30/19 20:23; Admin Dose 100 MG; Start 03/29/19 at 21:00 Ondansetron HCl (Zofran Inj) 4 mg Q6H PRN IV NAUSEA AND/OR VOMITING; Start 03/29/19 at 15:00 Ipratropium [place] (Atrovent Hfa) 2 puff Q4H RESP THERAPY INH Last administered on 03/31/19 13:25; Admin Dose 2 PUFF; Start 03/29/19 at 17:00 Ipratropium [place] (Atrovent Hfa) 2 puff Q2H RESP THERAPY PRN INH SHORTNESS OF BREATH; Start 03/29/19 at 15:00 Lorazepam (Ativan) 1 mg Q2H PRN IV ANXIETY Last administered on 03/30/19 20:21; Admin Dose 1 MG; Start 03/29/19 at 15:00 Levofloxacin/ Dextrose 150 ml @ 100 mls/hr Q24H IVPB Last administered on 03/31/19 10:26; Admin Dose 100 MLS/HR; Start 03/30/19 at 10:30 Atorvastatin Calcium (Lipitor) 10 mg DAILY@21 PO Last administered on 03/30/19 20:24; Admin Dose 10 MG; Start 03/29/19 at 21:00 Multivitamins/ Minerals (Theragran-M) 1 tab DAILY PO Last administered on 03/31/19 08:01; Admin Dose 1 TAB; Start 03/30/19 at 09:00 Eye Lubricant (Artificial Tears Oph) 1 drop Q12H PRN BOTH EYES DRY EYES; Start 03/29/19 at 18:30 Ferrous Sulfate (Feosol Liquid Cup) 300 mg BID GTB Last administered on 03/31/19 08:01; Admin Dose 300 MG; Start 03/29/19 at 21:00 Diltiazem HCl (Cardizem Iv) 5 mg Q4 PRN IV HR >110; Start 03/30/19 at 10:30 Furosemide (Lasix) 40 mg BID DIURETICS IV Last administered on 03/31/19at 06:12; Admin Dose 40 MG; Start 03/30/19 at 15:00 Carvedilol (Coreg) 12.5 mg BID GTB Last administered on 03/31/19 08:02; Admin Dose 12.5 MG; Start 03/30/19 at 21:00 Lisinopril (Zestril) 5 mg DAILY PO Last administered on 03/31/19at 08:02; Admin Dose 5 MG; Start 03/31/19 at 09:00 Amiodarone HCl (Cordarone) 400 mg BID PO Last administered on 03/31/19at 11:16; Admin Dose 400 MG; Start 03/31/19 at 10:30 Pantoprazole (Protonix Tab) 40 mg DAILY@06 PO Last administered on 03/31/19at 12:15; Admin Dose 40 MG; Start 03/31/19 at 12:00 JASPER QUINTERO NP Mar 31, 2019 14:04
--- NOTE | 2019-03-31 19:41 | CONS ---
Assessment/Plan Assessment/Plan Hospital Course (Demo Recall) 64-year-old female with multiple medical problems that include: 1- Acute on chronic hypoxic respiratory failure 2. Acute on chronic diastolic heart failure 3. Afib with RVR 4. UTI, hx ESBL per [facility] records 5. Chronic encephalopathy, secondary to subdural hematoma in 2017 s/p evacuation 6. Diabetes Mellitus 7. hypothyroidism 8. HTN 9. GERD 10. h/o CVA with L residual weakness 11. Seizures 12. h/o breast CA s/p mastectomy Patient was transferred from the [facility] nursing [facility] to [facility] because of shortness of breath. Patient does have urinary tract infection and according to her family she has been getting more infections in the past 5 to 6 months. Her daughter states that patient was able to void on her own before and at one time she has not urinated in about 6 hours and because of that the nursing staff inserted a Adams catheter and told them that they need to keep the Adams catheter in. On the examination the abdomen is large and a little obese. Adams catheter is draining well. Pelvic exam showed no mass and no discharge. In her case it is not uncommon to develop bladder infections because of fecal incontinence and vaginal contamination. I discussed with her daughter who was at her bedside the options and that could be removing the Adams catheter and see if she does void and check her postvoid residual. If she does void and the postvoid residual is low we do not have to keep a Adams catheter. If on the other hand she does not urinate or her postvoid residual is high then she will need the Adams catheter and the other option would be inserting a suprapubic tube. That may decrease the contamination of the catheter but would not eliminate the risks of infection. Therefore the plan is to remove the Adams catheter and see if she does void and check her postvoid residual. That will be done once she is stable and no need to monitor accurately her urine output. Consultation Date/Type/Reason Admit Date/Time Mar 29, 2019 at 13:25 Date of Consultation: Mar 31, 2019 Type of Consult Urology Reason for Consultation Recurrent urinary tract infection. Requesting Provider: ROMEO DURAND Date/Time of Note DATE: 03/31/19 TIME: 19:27 Hx of Present Illness 64-year-old female with multiple medical problems that include: 1- Acute on chronic hypoxic respiratory failure 2. Acute on chronic diastolic heart failure 3. Afib with RVR 4. UTI, hx ESBL per [place] [facility] 5. Chronic encephalopathy, secondary to subdural hematoma in 2017 s/p evacuation 6. Diabetes Mellitus 7. hypothyroidism 8. HTN 9. GERD 10. h/o CVA with L residual weakness 11. Seizures 12. h/o breast CA s/p mastectomy Patient was transferred from the [facility] nursing [facility] to [facility] because of shortness of breath. Patient does have urinary tract infection and according to her family she has been getting more infections in the past 5 to 6 months. Her daughter states that patient was able to void on her own before and at one time she has not urinated in about 6 hours and because of that the nursing staff inserted a Adams catheter and told them that they need to keep the Adams catheter in. Subjective hx not possible: pt non-verbal Past Medical History Medical History: congestive heart failure, diabetes, GERD, hypertension, hypothyroid, other (atrial fibrillation, SDH, dementia, seizure, ) Home Meds Reported Medications Clonazepam* (Clonazepam*) 0.5 Mg Tablet, 0.5 MG GTB BID, TAB 03/29/19 Potassium Chloride* (Potassium Chloride*) 20 Meq Tablet.er, 20 MEQ GTB DAILY, TAB.SA 03/29/19 Melatonin (Melatonin) 5 Mg Tablet, 5 MG GTB HS, TAB 03/29/19 Lovastatin* (Lovastatin*) 10 Mg Tablet, 10 MG GTB HS, TAB 03/29/19 Levothyroxine Sodium* (Levothyroxine Sodium*) 100 Mcg Tablet, 100 MCG GTB BEFORE BREAKFAST, #30 TAB 03/29/19 Levetiracetam* (Keppra* (Ped)) 100 Mg/Ml Liq, 15 ML GTB Q12H for 30 Days, BOTTLE 03/29/19 Apixaban* (Eliquis*) 2.5 Mg Tablet, 2.5 MG GTB DAILY, TAB 03/29/19 Amlodipine Besylate* (Amlodipine Besylate*) 10 Mg Tablet, 10 MG GTB DAILY, #30 TAB HOLD FOR SBP<110 OR HR<60 03/29/19 Dextran 70/Hypromellose/Pf (ARTIFICIAL TEARS DROPS) 1 Each Droperette, 1 EACH OP Q12H 03/29/19 Acetaminophen* (Acetaminophen*) 500 MG Extra Strength Tablet, 1000 MG GTB Q4H PRN for PAIN LEVEL 4-6/10, TAB 03/29/19 Acetaminophen* (Tylenol*) 325 Mg Tablet, 650 MG GTB PRN PRN for TRACH TUBE CHANGE, TAB 03/29/19 Acetaminophen* (Tylenol*) 325 Mg Tablet, 650 MG GTB Q4H PRN for MILD PAIN LEVEL 1-3, TAB AND FOR FEVER 101 AND ABOVE 03/29/19 Bisacodyl (Dulcolax) 10 Mg Supp.rect, 10 MG RC DAILY, SUPP.RECT 03/29/19 Sodium Phosphate,[place]-Dibasic (Enema Ready To Use) 133 Ml Enema, 133 ML RC Q2D, ENEMA 03/29/19 Magnesium Hydroxide* (Milk Of Magnesia*) 400 Mg/5 Ml Oral.susp, 30 ML GTB DAILY, ML 03/29/19 Docusate Sodium* (Colace*) 100 Mg Capsule, 100 MG GTB QHS, #30 CAP 03/29/19 Multivit &Minerals/Ferrous Fum (MULTIVITAMIN LIQUID) 9 Mg/15 Ml Liquid, 5 ML GTB DAILY 03/29/19 Ascorbic Acid (Vitamin C) 500 Mg Tab, 500 MG GTB BID, TAB 03/29/19 Ferrous Sulfate* (Ferrous Sulfate*) 220 Mg/5 Ml Solution, 7.5 ML GTB BID, ML 03/29/19 Cran/Vitc/Mannose/Inulin/Brom (Uti-Stat Liquid) 3,875 Mg/30 Ml Liquid, 30 MG GTB DAILY 03/29/19 Cranberry Extract (Cranberry) 425 Mg Capsule, 425 MG GTB BID, CAP 03/29/19 Medications Current Medications Acetaminophen (Tylenol Tab) 650 mg Q4H PRN GTB MILD PAIN LEVEL 1-3; Start 03/29/19 at 14:00 Apixaban (Eliquis) 2.5 mg DAILY GTB Last administered on 03/31/19at 08:01; Admin Dose 2.5 MG; Start 03/30/19 at 09:00 Ascorbic Acid (Vitamin C) 500 mg BID GTB Last administered on 03/31/19at 08:01; Admin Dose 500 MG; Start 03/29/19 at 21:00 Clonazepam (Klonopin) 0.5 mg BID GTB Last administered on 03/31/19 08:01; Admin Dose 0.5 MG; Start 03/29/19 at 21:00 Levetiracetam (Keppra Liquid) 1,500 mg Q12H GTB Last administered on 03/31/19 13:17; Admin Dose 1,500 MG; Start 03/29/19 at 14:00 Levothyroxine Sodium (Synthroid) 100 mcg BEFORE BREAKFAST GTB Last administered on 03/31/19 06:12; Admin Dose 100 MCG; Start 03/30/19 at 07:00 Magnesium Hydroxide (Milk Of Mag) 30 ml DAILY GTB Last administered on 03/31/19 08:01; Admin Dose 30 ML; Start 03/30/19 at 09:00 Melatonin (Melatonin) 5 mg HS GTB Last administered on 03/30/19 20:24; Admin Dose 5 MG; Start 03/29/19 at 21:00 Docusate Sodium (Colace Liquid Cup) 100 mg QHS GTB Last administered on 03/30/19 20:23; Admin Dose 100 MG; Start 03/29/19 at 21:00 Ondansetron HCl (Zofran Inj) 4 mg Q6H PRN IV NAUSEA AND/OR VOMITING; Start 03/29/19 at 15:00 Ipratropium [place] (Atrovent Hfa) 2 puff Q4H RESP THERAPY INH Last administered on 03/31/19 17:41; Admin Dose 2 PUFF; Start 03/29/19 at 17:00 Ipratropium [place] (Atrovent Hfa) 2 puff Q2H RESP THERAPY PRN INH SHORTNESS OF BREATH; Start 03/29/19 at 15:00 Lorazepam (Ativan) 1 mg Q2H PRN IV ANXIETY Last administered on 03/30/19 20:21; Admin Dose 1 MG; Start 03/29/19 at 15:00 Levofloxacin/ Dextrose 150 ml @ 100 mls/hr Q24H IVPB Last administered on 03/31/19 10:26; Admin Dose 100 MLS/HR; Start 03/30/19 at 10:30 Atorvastatin Calcium (Lipitor) 10 mg DAILY@21 PO Last administered on 03/30/19 20:24; Admin Dose 10 MG; Start 03/29/19 at 21:00 Multivitamins/ Minerals (Theragran-M) 1 tab DAILY PO Last administered on 03/31/19 08:01; Admin Dose 1 TAB; Start 03/30/19 at 09:00 Eye Lubricant (Artificial Tears Oph) 1 drop Q12H PRN BOTH EYES DRY EYES; Start 03/29/19 at 18:30 Ferrous Sulfate (Feosol Liquid Cup) 300 mg BID GTB Last administered on 03/31/19at 08:01; Admin Dose 300 MG; Start 03/29/19 at 21:00 Diltiazem HCl (Cardizem Iv) 5 mg Q4 PRN IV HR >110; Start 03/30/19 at 10:30 Furosemide (Lasix) 40 mg BID DIURETICS IV Last administered on 03/31/19at 17:06; Admin Dose 40 MG; Start 03/30/19 at 15:00 Carvedilol (Coreg) 12.5 mg BID GTB Last administered on 03/31/19at 08:02; Admin Dose 12.5 MG; Start 03/30/19 at 21:00 Lisinopril (Zestril) 5 mg DAILY PO Last administered on 03/31/19at 08:02; Admin Dose 5 MG; Start 03/31/19 at 09:00 Amiodarone HCl (Cordarone) 400 mg BID PO Last administered on 03/31/19at 11:16; Admin Dose 400 MG; Start 03/31/19 at 10:30 Pantoprazole (Protonix Tab) 40 mg DAILY@06 PO Last administered on 03/31/19at 12:15; Admin Dose 40 MG; Start 03/31/19 at 12:00 Allergies: Coded Allergies: Penicillins (Verified Allergy, Intermediate, Hives, 03/29/19) vancomycin (Verified Allergy, Intermediate, Hives, 03/29/19) Past Surgical History Past Surgical Hx: other (Right mastectomy, left subdural evacuation, trach/peg) Social History Alcohol Use: none Smoking Status: Never smoker Drug Use: none Exam/Review of Systems Exam Vitals Vital Signs Date Temp Pulse Resp B/P (MAP) Pulse Ox O2 O2 Flow FiO2 Time Delivery Rate 03/31/19 70 20 102/72 98 18:00 (82) 03/31/19 30 17:42 03/31/19 98.6 Mechanical 16:00 Ventilator Intake and Output 6/30/19 6/30/19 7/1/19 1515:00 23:00 07:00 IntakeIntake Total 1136.8 ml 913.6 ml 754.9 ml OutputOutput Total 160 ml 1830 ml 1550 ml BalanceBalance 976.8 ml -916.4 ml -795.1 ml ENMT: intubated (Has a tracheostomy) Respiratory: other (Has tracheostomy and is on a respirator) Gastrointestinal: other (Has a G-tube in place) Genitourinary - Female: other (Pelvic exam: There is no discharge, no mass palpable and no bleeding.) Extremities: other (Contractures of lower extremities) Neurological: focal weakness (Post lower extremities and left upper extremity. She only moves her right upper extremity a little bit) Results Result Diagram: 03/31/19 0430 03/31/19 0430 Results 24hrs Laboratory Tests Test 03/31/19 04:30 White Blood Count 5.4 Red Blood Count 3.65 #L Hemoglobin 10.2 L Hematocrit 30.8 #L Mean Corpuscular Volume 84.4 Mean Corpuscular Hemoglobin 27.9 L Mean Corpuscular Hemoglobin Concent 33.1 Red Cell Distribution Width 13.7 Platelet Count 198 # Mean Platelet Volume 12.9 H Immature Granulocytes % 0.900 H Neutrophils % 54.9 Lymphocytes % 23.5 Monocytes % 14.5 H Eosinophils % 5.1 Basophils % 1.1 Nucleated Red Blood Cells % 0.0 Immature Granulocytes # 0.050 H Neutrophils # 3.0 Lymphocytes # 1.3 Monocytes # 0.8 Eosinophils # 0.3 Basophils # 0.1 Nucleated Red Blood Cells # 0.0 Sodium Level 142 Potassium Level 3.1 L Chloride Level 106 Carbon Dioxide Level 28 Anion Gap 8 Blood Urea Nitrogen 14 Creatinine 0.41 L Glucose Level 137 # Calcium Level 7.7 L Phosphorus Level 3.1 Magnesium Level 2.1 Albumin 2.9 #L Medications Medication Current Medications Acetaminophen (Tylenol Tab) 650 mg Q4H PRN GTB MILD PAIN LEVEL 1-3; Start 03/29/19 at 14:00 Apixaban (Eliquis) 2.5 mg DAILY GTB Last administered on 03/31/19at 08:01; Admin Dose 2.5 MG; Start 03/30/19 at 09:00 Ascorbic Acid (Vitamin C) 500 mg BID GTB Last administered on 03/31/19 08:01; Admin Dose 500 MG; Start 03/29/19 at 21:00 Clonazepam (Klonopin) 0.5 mg BID GTB Last administered on 03/31/19 08:01; Admin Dose 0.5 MG; Start 03/29/19 at 21:00 Levetiracetam (Keppra Liquid) 1,500 mg Q12H GTB Last administered on 03/31/19 13:17; Admin Dose 1,500 MG; Start 03/29/19 at 14:00 Levothyroxine Sodium (Synthroid) 100 mcg BEFORE BREAKFAST GTB Last administered on 03/31/19 06:12; Admin Dose 100 MCG; Start 03/30/19 at 07:00 Magnesium Hydroxide (Milk Of Mag) 30 ml DAILY GTB Last administered on 03/31/19 08:01; Admin Dose 30 ML; Start 03/30/19 at 09:00 Melatonin (Melatonin) 5 mg HS GTB Last administered on 03/30/19 20:24; Admin Dose 5 MG; Start 03/29/19 at 21:00 Docusate Sodium (Colace Liquid Cup) 100 mg QHS GTB Last administered on 03/30/19 20:23; Admin Dose 100 MG; Start 03/29/19 at 21:00 Ondansetron HCl (Zofran Inj) 4 mg Q6H PRN IV NAUSEA AND/OR VOMITING; Start 03/29/19 at 15:00 Ipratropium [place]ott (Atrovent Hfa) 2 puff Q4H RESP THERAPY INH Last administered on 03/31/19 17:41; Admin Dose 2 PUFF; Start 03/29/19 at 17:00 Ipratropium [place] (Atrovent Hfa) 2 puff Q2H RESP THERAPY PRN INH SHORTNESS OF BREATH; Start 03/29/19 at 15:00 Lorazepam (Ativan) 1 mg Q2H PRN IV ANXIETY Last administered on 03/30/19 20:21; Admin Dose 1 MG; Start 03/29/19 at 15:00 Levofloxacin/ Dextrose 150 ml @ 100 mls/hr Q24H IVPB Last administered on 03/31/19 10:26; Admin Dose 100 MLS/HR; Start 03/30/19 at 10:30 Atorvastatin Calcium (Lipitor) 10 mg DAILY@21 PO Last administered on 03/30/19 20:24; Admin Dose 10 MG; Start 03/29/19 at 21:00 Multivitamins/ Minerals (Theragran-M) 1 tab DAILY PO Last administered on 03/31/19 08:01; Admin Dose 1 TAB; Start 03/30/19 at 09:00 Eye Lubricant (Artificial Tears Oph) 1 drop Q12H PRN BOTH EYES DRY EYES; Start 03/29/19 at 18:30 Ferrous Sulfate (Feosol Liquid Cup) 300 mg BID GTB Last administered on 03/31/19 08:01; Admin Dose 300 MG; Start 03/29/19 at 21:00 Diltiazem HCl (Cardizem Iv) 5 mg Q4 PRN IV HR >110; Start 03/30/19 at 10:30 Furosemide (Lasix) 40 mg BID DIURETICS IV Last administered on 03/31/19at 17:06; Admin Dose 40 MG; Start 03/30/19 at 15:00 Carvedilol (Coreg) 12.5 mg BID GTB Last administered on 03/31/19 08:02; Admin Dose 12.5 MG; Start 03/30/19 at 21:00 Lisinopril (Zestril) 5 mg DAILY PO Last administered on 03/31/19at 08:02; Admin Dose 5 MG; Start 03/31/19 at 09:00 Amiodarone HCl (Cordarone) 400 mg BID PO Last administered on 03/31/19 11:16; Admin Dose 400 MG; Start 03/31/19 at 10:30 Pantoprazole (Protonix Tab) 40 mg DAILY@06 PO Last administered on 03/31/19 12 :15; Admin Dose 40 MG; Start 03/31/19 at 12:00 AJ WILSON MD Mar 31, 2019 19:37
[2019-03-31] MEDS: DOCUSATE SODIUM 10 MG/ML (10ML CUP) GTB SCH (20:46)
[2019-03-31] MEDS: MELATONIN 5 MG TABLET GTB SCH (20:47)
[2019-03-31] MEDS: ATORVASTATIN 10 MG TAB PO SCH (20:47)
--- NOTE | 2019-03-31 20:57 | CONSI ---
Assessment/Plan Assessment/Plan Assessment/Plan (Recall) 64 F c/ reported prior cardiac arrest, c/b encephalopathy and epilepsy...and well as a more stroke....who is admitted for management of respiratory symptoms.. She was noted to have twitching movements, concerning for breakthrough seizure...for which neurology is consulted.. Recent blood work on 03/30 was notable for severe electrolyte abnls, which are potential contributors to breakthrough seizure.. Current UTI could certainly be lowering her seizure threshold....but could also predispose to more benign abnl movements -- myoclonus.. P: Head CT to evaluate for acute intracranial pathology Continue Keppra 1500mg bid for now Ativan iv prn prolonged seizure or cluster Continued medical management and supportive care per primary Will follow clinically Consultation Date/Type/Reason Admit Date/Time Mar 29, 2019 at 13:25 Type of Consult Neurology Reason for Consultation seizure Requesting Provider: ROMEO DURAND Date/Time of Note DATE: 03/31/19 TIME: 20:56 Hx of Present Illness Patient is unable to contribute a Hx. She was noted to have twitching concerning for seizure, for which neurology is consulted. It is elsewhere noted: 64 yo F with PMH atrial fibrillation, diastolic HF, dementia, subdural hemorrhage s/p evacuation with resulting encephalopathy, CVA with residual L sided weakness, chronic respiratory failure, trach to vent, diabetes mellitus, seizure, HTN, GERD, hypothyroidism, hx ESBL UTI, and breast cancer presented from SNF for worsening shortness of breath. Patient's daughters at bedside and providing history as patient is nonverbal. Patient has been nonverbal and bedridden for the past 1.5 years and resides at [place] [facility]. Per daughters, patient was turning red this am and was noted with difficulty breathing, Denies any coughing, wheezing, fevers, or chills. Daughters have been concerned about recurrent UTIs and was recently at [facility] for tx of ESBL UTI. They state since her lakhani was placed in December, their mother has been having issues. In the ED, patient was found in rapid atrial fibrillation and started on Cardizem drip. Subjective hx not possible: pt non-verbal Objective Exam Vitals Vital Signs Date Temp Pulse Resp B/P (MAP) Pulse Ox O2 O2 Flow FiO2 Time Delivery Rate 03/31/19 72 20:00 03/31/19 30 20:00 03/31/19 20 102/72 98 18:00 (82) 03/31/19 98.6 Mechanical 16:00 Ventilator Intake and Output 03/30/19 03/30/19 03/31/19 1515:00 23:00 07:00 IntakeIntake Total 1136.8 ml 913.6 ml 754.9 ml OutputOutput Total 160 ml 1830 ml 1550 ml BalanceBalance 976.8 ml -916.4 ml -795.1 ml Exam PE: Gen Appearance: No Apparent Distress HEENT: Trach Cardiovascular: Regular rate Abdomen: Soft Extremities: Dry NE: The patient was alert, able to track... Cranial nerve examination was limited by mental status. Pupils were equal and reactive to light. There was no afferent pupillary defect. Funduscopic examin ation was limited. Face was grossly symmetric, w/ present corneal and cough reflexes. Tone was increased on the left. Muscle bulk was reduced. I did not see fasciculations. The patient moved her right arm and leg spontaneously.. Coordination and gait testing was limited by mental status. Arm and leg reflexes were brisk on the left. Jimenez's sign was absent. Plantar responses were flexor. Results Result Diagram: 03/31/19 0430 03/31/19 0430 Results 24hrs Laboratory Tests Test 03/31/19 04:30 White Blood Count 5.4 Red Blood Count 3.65 #L Hemoglobin 10.2 L Hematocrit 30.8 #L Mean Corpuscular Volume 84.4 Mean Corpuscular Hemoglobin 27.9 L Mean Corpuscular Hemoglobin Concent 33.1 Red Cell Distribution Width 13.7 Platelet Count 198 # Mean Platelet Volume 12.9 H Immature Granulocytes % 0.900 H Neutrophils % 54.9 Lymphocytes % 23.5 Monocytes % 14.5 H Eosinophils % 5.1 Basophils % 1.1 Nucleated Red Blood Cells % 0.0 Immature Granulocytes # 0.050 H Neutrophils # 3.0 Lymphocytes # 1.3 Monocytes # 0.8 Eosinophils # 0.3 Basophils # 0.1 Nucleated Red Blood Cells # 0.0 Sodium Level 142 Potassium Level 3.1 L Chloride Level 106 Carbon Dioxide Level 28 Anion Gap 8 Blood Urea Nitrogen 14 Creatinine 0.41 L Glucose Level 137 # Calcium Level 7.7 L Phosphorus Level 3.1 Magnesium Level 2.1 Albumin 2.9 #L Past Medical History Medical History: congestive heart failure, diabetes, GERD, hypertension, hypothyroid, other (atrial fibrillation, SDH, dementia, seizure, ) Home Meds Reported Medications Clonazepam* (Clonazepam*) 0.5 Mg Tablet, 0.5 MG GTB BID, TAB 03/29/19 Potassium Chloride* (Potassium Chloride*) 20 Meq Tablet.er, 20 MEQ GTB DAILY, TAB.SA 03/29/19 Melatonin (Melatonin) 5 Mg Tablet, 5 MG GTB HS, TAB 03/29/19 Lovastatin* (Lovastatin*) 10 Mg Tablet, 10 MG GTB HS, TAB 03/29/19 Levothyroxine Sodium* (Levothyroxine Sodium*) 100 Mcg Tablet, 100 MCG GTB BEFORE BREAKFAST, #30 TAB 03/29/19 Levetiracetam* (Keppra* (Ped)) 100 Mg/Ml Liq, 15 ML GTB Q12H for 30 Days, BOTTLE 03/29/19 Apixaban* (Eliquis*) 2.5 Mg Tablet, 2.5 MG GTB DAILY, TAB 03/29/19 Amlodipine Besylate* (Amlodipine Besylate*) 10 Mg Tablet, 10 MG GTB DAILY, #30 TAB HOLD FOR SBP<110 OR HR<60 03/29/19 Dextran 70/Hypromellose/Pf (ARTIFICIAL TEARS DROPS) 1 Each Droperette, 1 EACH OP Q12H 03/29/19 Acetaminophen* (Acetaminophen*) 500 MG Extra Strength Tablet, 1000 MG GTB Q4H PRN for PAIN LEVEL 4-/10, TAB 03/29/19 Acetaminophen* (Tylenol*) 325 Mg Tablet, 650 MG GTB PRN PRN for TRACH TUBE CHANGE, TAB 03/29/19 Acetaminophen* (Tylenol*) 325 Mg Tablet, 650 MG GTB Q4H PRN for MILD PAIN LEVEL 1-3, TAB AND FOR FEVER 101 AND ABOVE 03/29/19 Bisacodyl (Dulcolax) 10 Mg Supp.rect, 10 MG RC DAILY, SUPP.RECT 03/29/19 Sodium Phosphate,[place]-Dibasic (Enema Ready To Use) 133 Ml Enema, 133 ML RC Q2D, ENEMA 03/29/19 Magnesium Hydroxide* (Milk Of Magnesia*) 400 Mg/5 Ml Oral.susp, 30 ML GTB DAILY, ML 03/29/19 Docusate Sodium* (Colace*) 100 Mg Capsule, 100 MG GTB QHS, #30 CAP 03/29/19 Multivit &Minerals/Ferrous Fum (MULTIVITAMIN LIQUID) 9 Mg/15 Ml Liquid, 5 ML GTB DAILY 03/29/19 Ascorbic Acid (Vitamin C) 500 Mg Tab, 500 MG GTB BID, TAB 03/29/19 Ferrous Sulfate* (Ferrous Sulfate*) 220 Mg/5 Ml Solution, 7.5 ML GTB BID, ML 03/29/19 Cran/Vitc/Mannose/Inulin/Brom (Uti-Stat Liquid) 3,875 Mg/30 Ml Liquid, 30 MG GTB DAILY 03/29/19 Cranberry Extract (Cranberry) 425 Mg Capsule, 425 MG GTB BID, CAP 03/29/19 Medications Current Medications Acetaminophen (Tylenol Tab) 650 mg Q4H PRN GTB MILD PAIN LEVEL 1-3; Start 03/29/19 at 14:00 Apixaban (Eliquis) 2.5 mg DAILY GTB Last administered on 03/31/19at 08:01; Admin Dose 2.5 MG; Start 03/30/19 at 09:00 Ascorbic Acid (Vitamin C) 500 mg BID GTB Last administered on 03/31/19 20:46; Admin Dose 500 MG; Start 03/29/19 at 21:00 Clonazepam (Klonopin) 0.5 mg BID GTB Last administered on 03/31/19 20:47; Admin Dose 0.5 MG; Start 03/29/19 at 21:00 Levetiracetam (Keppra Liquid) 1,500 mg Q12H GTB Last administered on 03/31/19at 13:17; Admin Dose 1,500 MG; Start 03/29/19 at 14:00 Levothyroxine Sodium (Synthroid) 100 mcg BEFORE BREAKFAST GTB Last administered on 03/31/19 06:12; Admin Dose 100 MCG; Start 03/30/19 at 07:00 Magnesium Hydroxide (Milk Of Mag) 30 ml DAILY GTB Last administered on 03/31/19 08:01; Admin Dose 30 ML; Start 03/30/19 at 09:00 Melatonin (Melatonin) 5 mg HS GTB Last administered on 03/31/19at 20:47; Admin Dose 5 MG; Start 03/29/19 at 21:00 Docusate Sodium (Colace Liquid Cup) 100 mg QHS GTB Last administered on 03/31/19 20:46; Admin Dose 100 MG; Start 03/29/19 at 21:00 Ondansetron HCl (Zofran Inj) 4 mg Q6H PRN IV NAUSEA AND/OR VOMITING; Start 03/29/19 at 15:00 Ipratropium [place] (Atrovent Hfa) 2 puff Q4H RESP THERAPY INH Last administered on 03/31/19 17:41; Admin Dose 2 PUFF; Start 03/29/19 at 17:00 Ipratropium [place] (Atrovent Hfa) 2 puff Q2H RESP THERAPY PRN INH SHORTNESS OF BREATH; Start 03/29/19 at 15:00 Lorazepam (Ativan) 1 mg Q2H PRN IV ANXIETY Last administered on 03/30/19 20:21; Admin Dose 1 MG; Start 03/29/19 at 15:00 Levofloxacin/ Dextrose 150 ml @ 100 mls/hr Q24H IVPB Last administered on 03/31/19 10:26; Admin Dose 100 MLS/HR; Start 03/30/19 at 10:30 Atorvastatin Calcium (Lipitor) 10 mg DAILY@21 PO Last administered on 03/31/19 20:47; Admin Dose 10 MG; Start 03/29/19 at 21:00 Multivitamins/ Minerals (Theragran-M) 1 tab DAILY PO Last administered on 03/31/19 08:01; Admin Dose 1 TAB; Start 03/30/19 at 09:00 Eye Lubricant (Artificial Tears Oph) 1 drop Q12H PRN BOTH EYES DRY EYES; Start 03/29/19 at 18:30 Ferrous Sulfate (Feosol Liquid Cup) 300 mg BID GTB Last administered on 03/31/19 20:46; Admin Dose 300 MG; Start 03/29/19 at 21:00 Diltiazem HCl (Cardizem Iv) 5 mg Q4 PRN IV HR >110; Start 03/30/19 at 10:30 Furosemide (Lasix) 40 mg BID DIURETICS IV Last administered on 03/31/19 17:06; Admin Dose 40 MG; Start 03/30/19 at 15:00 Carvedilol (Coreg) 12.5 mg BID GTB Last administered on 03/31/19at 20:48; Admin Dose 12.5 MG; Start 03/30/19 at 21:00 Lisinopril (Zestril) 5 mg DAILY PO Last administered on 03/31/19at 08:02; Admin Dose 5 MG; Start 03/31/19 at 09:00 Amiodarone HCl (Cordarone) 400 mg BID PO Last administered on 03/31/19at 20:47; Admin Dose 400 MG; Start 03/31/19 at 10:30 Pantoprazole (Protonix Tab) 40 mg DAILY@06 PO Last administered on 03/31/19at 12:15; Admin Dose 40 MG; Start 03/31/19 at 12:00 Allergies: Coded Allergies: Penicillins (Verified Allergy, Intermediate, Hives, 03/29/19) vancomycin (Verified Allergy, Intermediate, Hives, 03/29/19) Past Surgical History Past Surgical Hx: other (Right mastectomy, left subdural evacuation, trach/peg) Social History Alcohol Use: none Smoking Status: Never smoker Drug Use: none VITA GANN Mar 31, 2019 20:57
[2019-04-01] VITALS (24 sets, daily range): BP systolic 119–155; BP diastolic 64–100; PULSE 56–72; RESP 14–22
[2019-04-01] MEDS: IPRATROPIUM (HFA) 12.9 GM INHALER INH SCH ×5 (01:33→20:46)
[2019-04-01] MEDS: LEVETIRACETAM (100 MG/ML) 5ML CUP GTB SCH ×2 (02:20→15:17)
[2019-04-01] MEDS: LEVOTHYROXINE 100 MCG TAB GTB SCH (06:32)
[2019-04-01] MEDS: FUROSEMIDE 40 MG INJ IV SCH (06:32)
[2019-04-01] MEDS: PANTOPRAZOLE (EC) 40 MG TAB PO SCH (06:32)
[2019-04-01] MEDS ORDERED: POTASSIUM CHLORIDE 100 ML IVPB ONE (07:30)
--- NOTE | 2019-04-01 08:37 | CONS ---
Assessment/Plan Assessment/Plan Hospital Course (Demo Recall) Paroxysmal atrial fibrillation with RVR: On an odd dose of Eliquis 2.5mg daily but with h/o SDH and likely no clinical effect from recurrent stroke, will assume someone has addressed this dose as outpt. Presented in RVR, now back in sinus after amiodarone drip Acute on ?chronic systolic heart failure: Decompensated on exam and by CXR. Also with low albumin which is contributing. Resolved Cardiomyopathy: EF 25-30%. ?etiology. 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 Diuresed well. Exam/Review of Systems Vital Signs Vitals Vital Signs Date Temp Pulse Resp B/P (MAP) Pulse Ox O2 O2 Flow FiO2 Time Delivery Rate 04/01/19 65 18 136/73 100 Mechanical 06:00 (94) Ventilator 04/01/19 30 05:56 04/01/19 98.5 04:00 Intake and Output 03/31/19 03/31/19 04/01/19 1515:00 23:00 07:00 IntakeIntake Total 1088.4 ml 780 ml 570 ml OutputOutput Total 1950 ml 1555 ml 510 ml BalanceBalance -861.6 ml -775 ml 60 ml Exam Constitutional: No alert, No oriented ENMT: other (trached) Neck: No jvd (unabel to assess) Respiratory: diminished breath sounds; No clear to auscultation Cardiovascular: regular rate and rhythm; No edema, No systolic murmur Gastrointestinal: soft; No distended Neurological: No nl mental status, No nl speech Labs Result Diagram: 04/01/19 0454 04/01/19 045 Results 24hrs Laboratory Tests Test 04/01/19 04:54 04/01/19 04:57 White Blood Count 6.0 Red Blood Count 3.72 L Hemoglobin 10.5 L Hematocrit 31.4 L Mean Corpuscular Volume 84.4 Mean Corpuscular Hemoglobin 28.2 L Mean Corpuscular Hemoglobin Concent 33.4 Red Cell Distribution Width 13.8 Platelet Count 209 Mean Platelet Volume 12.6 H Immature Granulocytes % 0.300 Neutrophils % 60.5 Lymphocytes % 19.3 Monocytes % 14.9 H Eosinophils % 4.5 Basophils % 0.5 Nucleated Red Blood Cells % 0.0 Immature Granulocytes # 0.020 Neutrophils # 3.6 Lymphocytes # 1.2 Monocytes # 0.9 Eosinophils # 0.3 Basophils # 0.0 Nucleated Red Blood Cells # 0.0 Sodium Level 143 Potassium Level 3.4 L Chloride Level 106 Carbon Dioxide Level 28 Anion Gap 9 Blood Urea Nitrogen 12 Creatinine 0.37 L Glucose Level 125 Calcium Level 8.1 L Phosphorus Level 3.5 Magnesium Level 2.2 Albumin 3.1 L Medications Medications Current Medications Acetaminophen (Tylenol Tab) 650 mg Q4H PRN GTB MILD PAIN LEVEL 1-3; Start 03/29/19 at 14:00 Apixaban (Eliquis) 2.5 mg DAILY GTB Last administered on 03/31/19 08:01; Admin Dose 2.5 MG; Start 03/30/19 at 09:00 Ascorbic Acid (Vitamin C) 500 mg BID GTB Last administered on 03/31/19at 20:46; Admin Dose 500 MG; Start 03/29/19 at 21:00 Clonazepam (Klonopin) 0.5 mg BID GTB Last administered on 03/31/19at 20:47; Admin Dose 0.5 MG; Start 03/29/19 at 21:00 Levetiracetam (Keppra Liquid) 1,500 mg Q12H GTB Last administered on 04/01/19 02:20; Admin Dose 1,500 MG; Start 03/29/19 at 14:00 Levothyroxine Sodium (Synthroid) 100 mcg BEFORE BREAKFAST GTB Last administered on 04/01/19 06:32; Admin Dose 100 MCG; Start 03/30/19 at 07:00 Magnesium Hydroxide (Milk Of Mag) 30 ml DAILY GTB Last administered on 03/31/19 08:01; Admin Dose 30 ML; Start 03/30/19 at 09:00 Melatonin (Melatonin) 5 mg HS GTB Last administered on 03/31/19 20:47; Admin Dose 5 MG; Start 03/29/19 at 21:00 Docusate Sodium (Colace Liquid Cup) 100 mg QHS GTB Last administered on 03/31/19 20:46; Admin Dose 100 MG; Start 03/29/19 at 21:00 Ondansetron HCl (Zofran Inj) 4 mg Q6H PRN IV NAUSEA AND/OR VOMITING; Start 03/29/19 at 15:00 Ipratropium [place] (Atrovent Hfa) 2 puff Q4H RESP THERAPY INH Last administered on 04/01/19 01:33; Admin Dose 2 PUFF; Start 03/29/19 at 17:00 Ipratropium [place] (Atrovent Hfa) 2 puff Q2H RESP THERAPY PRN INH SHORTNESS OF BREATH; Start 03/29/19 at 15:00 Lorazepam (Ativan) 1 mg Q2H PRN IV ANXIETY Last administered on 03/30/19 20:21; Admin Dose 1 MG; Start 03/29/19 at 15:00 Levofloxacin/ Dextrose 150 ml @ 100 mls/hr Q24H IVPB Last administered on 03/31/19 10:26; Admin Dose 100 MLS/HR; Start 03/30/19 at 10:30 Atorvastatin Calcium (Lipitor) 10 mg DAILY@21 PO Last administered on 03/31/19 20:47; Admin Dose 10 MG; Start 03/29/19 at 21:00 Multivitamins/ Minerals (Theragran-M) 1 tab DAILY PO Last administered on 03/31/19 08:01; Admin Dose 1 TAB; Start 03/30/19 at 09:00 Eye Lubricant (Artificial Tears Oph) 1 drop Q12H PRN BOTH EYES DRY EYES; Start 03/29/19 at 18:30 Ferrous Sulfate (Feosol Liquid Cup) 300 mg BID GTB Last administered on 03/31/19 20:46; Admin Dose 300 MG; Start 03/29/19 at 21:00 Diltiazem HCl (Cardizem Iv) 5 mg Q4 PRN IV HR >110; Start 03/30/19 at 10:30 Furosemide (Lasix) 40 mg BID DIURETICS IV Last administered on 04/01/19 06:32; Admin Dose 40 MG; Start 03/30/19 at 15:00 Carvedilol (Coreg) 12.5 mg BID GTB Last administered on 03/31/19at 20:48; Admin Dose 12.5 MG; Start 03/30/19 at 21:00 Lisinopril (Zestril) 5 mg DAILY PO Last administered on 03/31/19at 08:02; Admin Dose 5 MG; Start 03/31/19 at 09:00 Amiodarone HCl (Cordarone) 400 mg BID PO Last administered on 03/31/19at 20:47; Admin Dose 400 MG; Start 03/31/19 at 10:30 Pantoprazole (Protonix Tab) 40 mg DAILY@06 PO Last administered on 04/01/19 06:32; Admin Dose 40 MG; Start 03/31/19 at 12:00 Potassium Chloride 100 ml @ 50 mls/hr ONCE ONCE IVPB Last administered on 04/01/19at 06:56; Admin Dose 50 MLS/HR; Start 04/01/19 at 07:30; Stop 04/01/19 at 09:29 MIREYA ZAMARRIPA Apr 01, 2019 08:37
[2019-04-01] MEDS: ASCORBIC ACID 500 MG TAB GTB SCH ×2 (09:03→20:35)
[2019-04-01] MEDS: FERROUS SULFATE 60 MG/ML 5ML CUP GTB SCH ×2 (09:03→20:35)
[2019-04-01] MEDS: MULTIVITAMINS/MINERALS TAB PO SCH (09:04)
[2019-04-01] MEDS: AMIODARONE 200 MG TAB PO SCH ×2 (09:04→20:38)
[2019-04-01] MEDS: APIXABAN 5 MG TABLET GTB SCH (09:05)
[2019-04-01] MEDS: LISINOPRIL 5 MG TAB PO SCH (09:05)
[2019-04-01] MEDS: clonAZEPAM 0.5 MG TAB GTB SCH ×2 (09:09→20:35)
[2019-04-01] MEDS: MAGNESIUM HYDROXIDE 30ML CUP GTB SCH (09:09)
--- NOTE | 2019-04-01 09:53 | CONS ---
Consult Date/Type/Reason Admit Date/Time Mar 29, 2019 at 13:25 Initial Consult Date 03/30/19 Type of Consult Pulmonary Requesting Provider: ROMEO DURAND Date/Time of Note DATE: 04/01/19 TIME: 09:52 Subjective Patient stable this morning continues mechanical ventilation currently no new events. Chest x-ray shows moderate right pleural effusion. Objective Vital Signs Date Temp Pulse Resp B/P (MAP) Pulse Ox O2 O2 Flow FiO2 Time Delivery Rate 04/01/19 62 08:00 04/01/19 20 99 30 07:50 04/01/19 136/73 Mechanical 06:00 (94) Ventilator 04/01/19 98.5 04:00 Intake and Output 03/31/19 03/31/19 04/01/19 1515:00 23:00 07:00 IntakeIntake Total 1088.4 ml 780 ml 570 ml OutputOutput Total 1950 ml 1555 ml 510 ml BalanceBalance -861.6 ml -775 ml 60 ml Exam PHYSICAL EXAMINATION: GENERAL: A chronically ill-appearing lady, on mechanical ventilation via tracheostomy. VITAL SIGNS: NECK: Supple. No JVD or lymphadenopathy. CARDIAC: Sounds 1 and 2, no added sounds or murmurs. CHEST: Diminished air entry bilaterally. ABDOMEN: Soft, nontender. No guarding or rebound. EXTREMITIES: No cyanosis, clubbing, edema. NEUROLOGIC: Unable to assess. Vent Setting Ventilator Support Mode: AC, VC plus Fraction of Inspired Oxygen pe: 30 Positive End Expiratory Pressu: 5.0 Results/Medications Result Diagram: 04/01/19 0454 04/01/19 0457 Results 24 hrs Laboratory Tests Test 04/01/19 04:54 04/01/19 04:57 White Blood Count 6.0 Red Blood Count 3.72 L Hemoglobin 10.5 L Hematocrit 31.4 L Mean Corpuscular Volume 84.4 Mean Corpuscular Hemoglobin 28.2 L Mean Corpuscular Hemoglobin Concent 33.4 Red Cell Distribution Width 13.8 Platelet Count 209 Mean Platelet Volume 12.6 H Immature Granulocytes % 0.300 Neutrophils % 60.5 Lymphocytes % 19.3 Monocytes % 14.9 H Eosinophils % 4.5 Basophils % 0.5 Nucleated Red Blood Cells % 0.0 Immature Granulocytes # 0.020 Neutrophils # 3.6 Lymphocytes # 1.2 Monocytes # 0.9 Eosinophils # 0.3 Basophils # 0.0 Nucleated Red Blood Cells # 0.0 Sodium Level 143 Potassium Level 3.4 L Chloride Level 106 Carbon Dioxide Level 28 Anion Gap 9 Blood Urea Nitrogen 12 Creatinine 0.37 L Glucose Level 125 Calcium Level 8.1 L Phosphorus Level 3.5 Magnesium Level 2.2 Albumin 3.1 L Medications Current Medications Acetaminophen (Tylenol Tab) 650 mg Q4H PRN GTB MILD PAIN LEVEL 1-3; Start at 14:00 Apixaban (Eliquis) 2.5 mg DAILY GTB Last administered on 04/01/19 09:05; Admin Dose 2.5 MG; Start 03/30/19 at 09:00 Ascorbic Acid (Vitamin C) 500 mg BID GTB Last administered on 04/01/19 09:03; Admin Dose 500 MG; Start 03/29/19 at 21:00 Clonazepam (Klonopin) 0.5 mg BID GTB Last administered on 04/01/19 09:09; Admin Dose 0.5 MG; Start 03/29/19 at 21:00 Levetiracetam (Keppra Liquid) 1,500 mg Q12H GTB Last administered on 04/01/19 02:20; Admin Dose 1,500 MG; Start 03/29/19 at 14:00 Levothyroxine Sodium (Synthroid) 100 mcg BEFORE BREAKFAST GTB Last administered on 04/01/19 06:32; Admin Dose 100 MCG; Start 03/30/19 at 07:00 Magnesium Hydroxide (Milk Of Mag) 30 ml DAILY GTB Last administered on 04/01/19 09:09; Admin Dose 30 ML; Start 03/30/19 at 09:00 Melatonin (Melatonin) 5 mg HS GTB Last administered on 03/31/19 20:47; Admin Dose 5 MG; Start 03/29/19 at 21:00 Docusate Sodium (Colace Liquid Cup) 100 mg QHS GTB Last administered on 03/31/19 20:46; Admin Dose 100 MG; Start 03/29/19 at 21:00 Ondansetron HCl (Zofran Inj) 4 mg Q6H PRN IV NAUSEA AND/OR VOMITING; Start 03/29/19 at 15:00 Ipratropium [place] (Atrovent Hfa) 2 puff Q4H RESP THERAPY INH Last administered on 04/01/19 08:44; Admin Dose 2 PUFF; Start 03/29/19 at 17:00 Ipratropium [place] (Atrovent Hfa) 2 puff Q2H RESP THERAPY PRN INH SHORTNESS OF BREATH; Start 03/29/19 at 15:00 Lorazepam (Ativan) 1 mg Q2H PRN IV ANXIETY Last administered on 03/30/19 20:21; Admin Dose 1 MG; Start 03/29/19 at 15:00 Levofloxacin/ Dextrose 150 ml @ 100 mls/hr Q24H IVPB Last administered on 03/31/19 10:26; Admin Dose 100 MLS/HR; Start 03/30/19 at 10:30 Atorvastatin Calcium (Lipitor) 10 mg DAILY@21 PO Last administered on 03/31/19 20:47; Admin Dose 10 MG; Start 03/29/19 at 21:00 Multivitamins/ Minerals (Theragran-M) 1 tab DAILY PO Last administered on 04/01/19 09:04; Admin Dose 1 TAB; Start 03/30/19 at 09:00 Eye Lubricant (Artificial Tears Oph) 1 drop Q12H PRN BOTH EYES DRY EYES; Start 03/29/19 at 18:30 Ferrous Sulfate (Feosol Liquid Cup) 300 mg BID GTB Last administered on 04/01/19 09:03; Admin Dose 300 MG; Start 03/29/19 at 21:00 Diltiazem HCl (Cardizem Iv) 5 mg Q4 PRN IV HR >110; Start 03/30/19 at 10:30 Carvedilol (Coreg) 12.5 mg BID GTB Last administered on 04/01/19 09:05; Admin Dose 12.5 MG; Start 03/30/19 at 21:00 Lisinopril (Zestril) 5 mg DAILY PO Last administered on 04/01/19 09:05; Admin Dose 5 MG; Start 03/31/19 at 09:00 Amiodarone HCl (Cordarone) 400 mg BID PO Last administered on 04/01/19 09:04; Admin Dose 400 MG; Start 03/31/19 at 10:30 Pantoprazole (Protonix Tab) 40 mg DAILY@06 PO Last administered on 04/01/19 06:32; Admin Dose 40 MG; Start 03/31/19 at 12:00 Furosemide (Lasix) 40 mg DAILY NGT ; Start 04/02/19 at 09:00 Assessment/Plan Hospital Course (Demo Recall) IMPRESSION: 1. Ventilator-dependent respiratory failure with encephalopathy. 2. Subdural hematoma status post evacuation. 3. Urinary tract infection with recent extended spectrum beta lactamase. 4. Atrial fibrillation with rapid ventricular rate. 5. Dysphagia with G-tube. 6. Right pleural effusion will require thoracentesis PLAN: 1. Continue mechanical ventilation. 2. Tube feeding as tolerated. 3. Antibiotics per infectious diseases pending cultures. 4. Rate control per cardiology. Currently on amiodarone. 5. Tube feeding as tolerated. 6. Deep venous thrombosis and GI prophylaxis. 7. Thoracentesis right pleural effusion with pleural fluid studies Critical care time 40 minutes. MICHAEL FONTAINE MD, [facility] Apr 01, 2019 09:53
[2019-04-01] MEDS ORDERED: VALPROATE INJ 1,000 MG in SOD CHLORIDE 0.9% 100 ML IVPB STA (10:42)
[2019-04-01] MEDS ORDERED: LORAZEPAM 2 MG INJ IV STA (10:42)
[2019-04-01] MEDS ORDERED: LEVETIRACETAM 1500 MG (PMX) 100 ML IVPB STA (10:42)
[2019-04-01] MEDS: LEVOFLOXACIN 750MG/D5W (PMX) 150 ML IVPB SCH (11:32)
--- NOTE | 2019-04-01 11:49 | CONS ---
Assessment/Plan Assessment/Plan Hospital Course (Demo Recall) Tx to tele, nad Urine culture growing E. coli/Proteus Chest x-ray revealed pulmonary congestion with small to moderate pleural effusions Indwelling: Trach PEG [place] Allergy: Penicillin, vancomycin Antimicrobials: Levofloxacin Physical examination: Chronically ill-appearing elderly woman who is in no distress. Head atraumatic normocephalic neck is supple chest rise symmetrical breath sounds diminished bases heart: S1-S2. Abdomen soft bowel sounds present. Assessment: 1. Acute on chronic hypoxemic respiratory failure secondary to pulmonary congestion 2. Urinary tract infection, gram-negative rods 3. Atrial fibrillation s/p rapid ventricular response 4. 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 Diabetes 6. Hypertension Plan: Stable,change antibiotics to Rocephin, follow cardiology/pulmonary recommendations Consultation Date/Type/Reason Admit Date/Time Mar 29, 2019 at 13:25 Initial Consult Date Type of Consult id Requesting Provider: ROMEO DURAND Date/Time of Note DATE: 04/01/19 TIME: 11:48 Exam/Review of Systems Exam Vitals Vital Signs Date Temp Pulse Resp B/P (MAP) Pulse Ox O2 O2 Flow FiO2 Time Delivery Rate 04/01/19 77 14 100 30 10:00 04/01/19 124/67 Mechanical 10:00 (86) Ventilator 04/01/19 98.4 08:00 Intake and Output 03/31/19 03/31/19 04/01/19 1515:00 23:00 07:00 IntakeIntake Total 1088.4 ml 780 ml 630 ml OutputOutput Total 1950 ml 1555 ml 610 ml BalanceBalance -861.6 ml -775 ml 20 ml Results Result Diagram: 04/01/19 0454 04/01/19 0457 Results 24hrs Laboratory Tests Test 04/01/19 04:54 04/01/19 04:57 White Blood Count 6.0 Red Blood Count 3.72 L Hemoglobin 10.5 L Hematocrit 31.4 L Mean Corpuscular Volume 84.4 Mean Corpuscular Hemoglobin 28.2 L Mean Corpuscular Hemoglobin Concent 33.4 Red Cell Distribution Width 13.8 Platelet Count 209 Mean Platelet Volume 12.6 H Immature Granulocytes % 0.300 Neutrophils % 60.5 Lymphocytes % 19.3 Monocytes % 14.9 H Eosinophils % 4.5 Basophils % 0.5 Nucleated Red Blood Cells % 0.0 Immature Granulocytes # 0.020 Neutrophils # 3.6 Lymphocytes # 1.2 Monocytes # 0.9 Eosinophils # 0.3 Basophils # 0.0 Nucleated Red Blood Cells # 0.0 Sodium Level 143 Potassium Level 3.4 L Chloride Level 106 Carbon Dioxide Level 28 Anion Gap 9 Blood Urea Nitrogen 12 Creatinine 0.37 L Glucose Level 125 Calcium Level 8.1 L Phosphorus Level 3.5 Magnesium Level 2.2 Albumin 3.1 L Medications Medication Current Medications Acetaminophen (Tylenol Tab) 650 mg Q4H PRN GTB MILD PAIN LEVEL 1-3; Start 03/02 06/19 at 14:00 Apixaban (Eliquis) 2.5 mg DAILY GTB Last administered on 04/01/19 09:05; Admin Dose 2.5 MG; Start 03/30/19 at 09:00 Ascorbic Acid (Vitamin C) 500 mg BID GTB Last administered on 04/01/19 09:03; Admin Dose 500 MG; Start 03/29/19 at 21:00 Clonazepam (Klonopin) 0.5 mg BID GTB Last administered on 04/01/19 09:09; Admin Dose 0.5 MG; Start 03/29/19 at 21:00 Levetiracetam (Keppra Liquid) 1,500 mg Q12H GTB Last administered on 04/01/19 02:20; Admin Dose 1,500 MG; Start 03/29/19 at 14:00 Levothyroxine Sodium (Synthroid) 100 mcg BEFORE BREAKFAST GTB Last administered on 04/01/19 06:32; Admin Dose 100 MCG; Start 03/30/19 at 07:00 Magnesium Hydroxide (Milk Of Mag) 30 ml DAILY GTB Last administered on 04/01/19 09:09; Admin Dose 30 ML; Start 03/30/19 at 09:00 Melatonin (Melatonin) 5 mg HS GTB Last administered on 03/31/19 20:47; Admin Dose 5 MG; Start 03/29/19 at 21:00 Docusate Sodium (Colace Liquid Cup) 100 mg QHS GTB Last administered on 03/31/19 20:46; Admin Dose 100 MG; Start 03/29/19 at 21:00 Ondansetron HCl (Zofran Inj) 4 mg Q6H PRN IV NAUSEA AND/OR VOMITING; Start at 15:00 Ipratropium [place] (Atrovent Hfa) 2 puff Q4H RESP THERAPY INH Last administered on 04/01/19 08:44; Admin Dose 2 PUFF; Start 03/29/19 at 17:00 Ipratropium [place] (Atrovent Hfa) 2 puff Q2H RESP THERAPY PRN INH SHORTNESS OF BREATH; Start 03/29/19 at 15:00 Lorazepam (Ativan) 1 mg Q2H PRN IV ANXIETY Last administered on 03/30/19 20:21; Admin Dose 1 MG; Start 03/29/19 at 15:00 Levofloxacin/ Dextrose 150 ml @ 100 mls/hr Q24H IVPB Last administered on 04/01/19 11:32; Admin Dose 100 MLS/HR; Start 03/30/19 at 10:30 Atorvastatin Calcium (Lipitor) 10 mg DAILY@21 PO Last administered on 03/31/19 20:47; Admin Dose 10 MG; Start 03/29/19 at 21:00 Multivitamins/ Minerals (Theragran-M) 1 tab DAILY PO Last administered on 04/01/19 09:04; Admin Dose 1 TAB; Start 03/30/19 at 09:00 Eye Lubricant (Artificial Tears Oph) 1 drop Q12H PRN BOTH EYES DRY EYES; Start 03/29/19 at 18:30 Ferrous Sulfate (Feosol Liquid Cup) 300 mg BID GTB Last administered on 04/01/19 09:03; Admin Dose 300 MG; Start 03/29/19 at 21:00 Diltiazem HCl (Cardizem Iv) 5 mg Q4 PRN IV HR >110; Start 03/30/19 at 10:30 Carvedilol (Coreg) 12.5 mg BID GTB Last administered on 04/01/19 09:05; Admin Dose 12.5 MG; Start 03/30/19 at 21:00 Lisinopril (Zestril) 5 mg DAILY PO Last administered on 04/01/19 09:05; Admin Dose 5 MG; Start 03/31/19 at 09:00 Amiodarone HCl (Cordarone) 400 mg BID PO Last administered on 04/01/19 09:04; Admin Dose 400 MG; Start 03/31/19 at 10:30 Pantoprazole (Protonix Tab) 40 mg DAILY@06 PO Last administered on 04/01/19at 06:32; Admin Dose 40 MG; Start 03/31/19 at 12:00 Furosemide (Lasix) 40 mg DAILY NGT ; Start 04/02/19 at 09:00 JASPER QUINTERO NP Apr 01, 2019 11:49
[2019-04-01] MEDS: CEFTRIAXONE 1 GM/50 ML (PMX) 50 ML IVPB SCH (12:00)
--- NOTE | 2019-04-01 13:08 | CONS ---
Assessment/Plan Assessment/Plan Assessment/Plan (Recall) 64 F c/ reported prior cardiac arrest, c/b encephalopathy and epilepsy...and well as a more stroke....who is admitted for management of respiratory symptoms.. She was noted to have twitching movements, concerning for breakthrough seizure...for which neurology is consulted.. Recent blood work on 03/30 was notable for severe electrolyte abnls, which are potential contributors to breakthrough seizure.. Current UTI could certainly be lowering her seizure threshold....but could also predispose to more benign abnl movements -- myoclonus.. P: Await Head CT to evaluate for acute intracranial pathology Continue Keppra 1500mg bid for now Ativan iv prn prolonged seizure or cluster Continued medical management and supportive care per primary Will follow clinically Consultation Date/Type/Reason Admit Date/Time Mar 29, 2019 at 13:25 Type of Consult Neurology Reason for Consultation seizure Requesting Provider: ROMEO DURAND Date/Time of Note DATE: 04/01/19 TIME: 13:07 24 HR Interval Summary Free Text/Dictation Tx to Telemetry Exam/Review of Systems Exam Vitals Vital Signs Date Temp Pulse Resp B/P (MAP) Pulse Ox O2 O2 Flow FiO2 Time Delivery Rate 04/01/19 98.0 63 22 146/94 96 Mechanical 11:55 (111) Ventilator Trach Collar 04/01/19 30 10:00 Intake and Output 03/31/19 03/31/19 04/01/19 1515:00 23:00 07:00 IntakeIntake Total 1088.4 ml 780 ml 630 ml OutputOutput Total 1950 ml 1555 ml 610 ml BalanceBalance -861.6 ml -775 ml 20 ml Results Result Diagram: 04/01/19 0454 04/01/19 0457 Results 24hrs Laboratory Tests Test 04/01/19 04:54 04/01/19 04:57 White Blood Count 6.0 Red Blood Count 3.72 L Hemoglobin 10.5 L Hematocrit 31.4 L Mean Corpuscular Volume 84.4 Mean Corpuscular Hemoglobin 28.2 L Mean Corpuscular Hemoglobin Concent 33.4 Red Cell Distribution Width 13.8 Platelet Count 209 Mean Platelet Volume 12.6 H Immature Granulocytes % 0.300 Neutrophils % 60.5 Lymphocytes % 19.3 Monocytes % 14.9 H Eosinophils % 4.5 Basophils % 0.5 Nucleated Red Blood Cells % 0.0 Immature Granulocytes # 0.020 Neutrophils # 3.6 Lymphocytes # 1.2 Monocytes # 0.9 Eosinophils # 0.3 Basophils # 0.0 Nucleated Red Blood Cells # 0.0 Sodium Level 143 Potassium Level 3.4 L Chloride Level 106 Carbon Dioxide Level 28 Anion Gap 9 Blood Urea Nitrogen 12 Creatinine 0.37 L Glucose Level 125 Calcium Level 8.1 L Phosphorus Level 3.5 Magnesium Level 2.2 Albumin 3.1 L Medications Medication Current Medications Acetaminophen (Tylenol Tab) 650 mg Q4H PRN GTB MILD PAIN LEVEL 1-3; Start 03/29/19 at 14:00 Apixaban (Eliquis) 2.5 mg DAILY GTB Last administered on 04/01/19 09:05; Admin Dose 2.5 MG; Start 03/30/19 at 09:00 Ascorbic Acid (Vitamin C) 500 mg BID GTB Last administered on 04/01/19 09:03; Admin Dose 500 MG; Start 03/29/19 at 21:00 Clonazepam (Klonopin) 0.5 mg BID GTB Last administered on 04/01/19 09:09; Admin Dose 0.5 MG; Start 03/29/19 at 21:00 Levetiracetam (Keppra Liquid) 1,500 mg Q12H GTB Last administered on 04/01/19 02:20; Admin Dose 1,500 MG; Start 03/29/19 at 14:00 Levothyroxine Sodium (Synthroid) 100 mcg BEFORE BREAKFAST GTB Last administ ered on 04/01/19 06:32; Admin Dose 100 MCG; Start 03/30/19 at 07:00 Magnesium Hydroxide (Milk Of Mag) 30 ml DAILY GTB Last administered on 04/01/19 09:09; Admin Dose 30 ML; Start 03/30/19 at 09:00 Melatonin (Melatonin) 5 mg HS GTB Last administered on 03/31/19 20:47; Admin Dose 5 MG; Start 03/29/19 at 21:00 Docusate Sodium (Colace Liquid Cup) 100 mg QHS GTB Last administered on 03/31/19 20:46; Admin Dose 100 MG; Start 03/29/19 at 21:00 Ondansetron HCl (Zofran Inj) 4 mg Q6H PRN IV NAUSEA AND/OR VOMITING; Start 03/29/19 at 15:00 Ipratropium [place] (Atrovent Hfa) 2 puff Q4H RESP THERAPY INH Last administered on 04/01/19 08:44; Admin Dose 2 PUFF; Start 03/29/19 at 17:00 Ipratropium [place] (Atrovent Hfa) 2 puff Q2H RESP THERAPY PRN INH SHORTNESS OF BREATH; Start 03/29/19 at 15:00 Lorazepam (Ativan) 1 mg Q2H PRN IV ANXIETY Last administered on 03/30/19 20:21; Admin Dose 1 MG; Start 03/29/19 at 15:00 Atorvastatin Calcium (Lipitor) 10 mg DAILY@21 PO Last administered on 03/31/19 20:47; Admin Dose 10 MG; Start 03/29/19 at 21:00 Multivitamins/ Minerals (Theragran-M) 1 tab DAILY PO Last administered on 04/01/19 09:04; Admin Dose 1 TAB; Start 03/30/19 at 09:00 Eye Lubricant (Artificial Tears Oph) 1 drop Q12H PRN BOTH EYES DRY EYES; Start 03/29/19 at 18:30 Ferrous Sulfate (Feosol Liquid Cup) 300 mg BID GTB Last administered on 04/01/19 09:03; Admin Dose 300 MG; Start 03/29/19 at 21:00 Diltiazem HCl (Cardizem Iv) 5 mg Q4 PRN IV HR >110; Start 03/30/19 at 10:30 Carvedilol (Coreg) 12.5 mg BID GTB Last administered on 04/01/19 09:05; Admin Dose 12.5 MG; Start 03/30/19 at 21:00 Lisinopril (Zestril) 5 mg DAILY PO Last administered on 04/01/19 09:05; Admin Dose 5 MG; Start 03/31/19 at 09:00 Amiodarone HCl (Cordarone) 400 mg BID PO Last administered on 04/01/19 09:04; Admin Dose 400 MG; Start 03/31/19 at 10:30 Pantoprazole (Protonix Tab) 40 mg DAILY@06 PO Last administered on 04/01/19 06:32; Admin Dose 40 MG; Start 03/31/19 at 12:00 Furosemide (Lasix) 40 mg DAILY NGT ; Start 04/02/19 at 09:00 Ceftriaxone Sodium 50 ml @ 100 mls/hr Q24H IVPB ; Start 04/01/19 at 12:00 VITA GANN Apr 01, 2019 13:08
--- NOTE | 2019-04-01 15:58 | PN ---
Date/Time of Note Date/Time of Note DATE: 04/01/19 TIME: 15:56 Objective Vitals Vital Signs Date Temp Pulse Resp B/P (MAP) Pulse Ox O2 O2 Flow FiO2 Time Delivery Rate 04/01/19 30 12:00 04/01/19 98.0 63 22 146/94 96 Mechanical 11:55 (111) Ventilator Trach Collar Intake and Output 03/31/19 03/31/19 04/01/19 1515:00 23:00 07:00 IntakeIntake Total 1088.4 ml 780 ml 630 ml OutputOutput Total 1950 ml 1555 ml 610 ml BalanceBalance -861.6 ml -775 ml 20 ml Results Result Diagram: 04/01/19 0454 04/01/19 0457 Medications Medications Current Medications Acetaminophen (Tylenol Tab) 650 mg Q4H PRN GTB MILD PAIN LEVEL 1-3; Start 03/29/19 at 14:00 Apixaban (Eliquis) 2.5 mg DAILY GTB Last administered on 04/01/19 09:05; Admin Dose 2.5 MG; Start 03/30/19 at 09:00 Ascorbic Acid (Vitamin C) 500 mg BID GTB Last administered on 04/01/19 09:03; Admin Dose 500 MG; Start 03/29/19 at 21:00 Clonazepam (Klonopin) 0.5 mg BID GTB Last administered on 04/01/19 09:09; Admin Dose 0.5 MG; Start 03/29/19 at 21:00 Levetiracetam (Keppra Liquid) 1,500 mg Q12H GTB Last administered on 04/01/19at 15:17; Admin Dose 1,500 MG; Start 03/29/19 at 14:00 Levothyroxine Sodium (Synthroid) 100 mcg BEFORE BREAKFAST GTB Last adm inistered on 04/01/19 06:32; Admin Dose 100 MCG; Start 03/30/19 at 07:00 Magnesium Hydroxide (Milk Of Mag) 30 ml DAILY GTB Last administered on 04/01/19 09:09; Admin Dose 30 ML; Start 03/30/19 at 09:00 Melatonin (Melatonin) 5 mg HS GTB Last administered on 03/31/19at 20:47; Admin Dose 5 MG; Start 03/29/19 at 21:00 Docusate Sodium (Colace Liquid Cup) 100 mg QHS GTB Last administered on 03/31/19 20:46; Admin Dose 100 MG; Start 03/29/19 at 21:00 Ondansetron HCl (Zofran Inj) 4 mg Q6H PRN IV NAUSEA AND/OR VOMITING; Start 03/29/19 at 15:00 Ipratropium [place] (Atrovent Hfa) 2 puff Q4H RESP THERAPY INH Last administered on 04/01/19 13:42; Admin Dose 2 PUFF; Start 03/29/19 at 17:00 Ipratropium [place] (Atrovent Hfa) 2 puff Q2H RESP THERAPY PRN INH SHORTNESS OF BREATH; Start 03/29/19 at 15:00 Lorazepam (Ativan) 1 mg Q2H PRN IV ANXIETY Last administered on 03/30/19 20:21; Admin Dose 1 MG; Start 03/29/19 at 15:00 Atorvastatin Calcium (Lipitor) 10 mg DAILY@21 PO Last administered on 03/31/19 20:47; Admin Dose 10 MG; Start 03/29/19 at 21:00 Multivitamins/ Minerals (Theragran-M) 1 tab DAILY PO Last administered on 04/01/19 09:04; Admin Dose 1 TAB; Start 03/30/19 at 09:00 Eye Lubricant (Artificial Tears Oph) 1 drop Q12H PRN BOTH EYES DRY EYES; Start 03/29/19 at 18:30 Ferrous Sulfate (Feosol Liquid Cup) 300 mg BID GTB Last administered on 04/01/19 09:03; Admin Dose 300 MG; Start 03/29/19 at 21:00 Diltiazem HCl (Cardizem Iv) 5 mg Q4 PRN IV HR >110; Start 03/30/19 at 10:30 Carvedilol (Coreg) 12.5 mg BID GTB Last administered on 04/01/19 09:05; Admin Dose 12.5 MG; Start 03/30/19 at 21:00 Lisinopril (Zestril) 5 mg DAILY PO Last administered on 04/01/19 09:05; Admin Dose 5 MG; Start 03/31/19 at 09:00 Amiodarone HCl (Cordarone) 400 mg BID PO Last administered on 7/2/19at 09:04; Admin Dose 400 MG; Start 03/31/19 at 10:30 Pantoprazole (Protonix Tab) 40 mg DAILY@06 PO Last administered on 04/01/19at 06:32; Admin Dose 40 MG; Start 03/31/19 at 12:00 Furosemide (Lasix) 40 mg DAILY NGT ; Start 04/02/19 at 09:00 Ceftriaxone Sodium 50 ml @ 100 mls/hr Q24H IVPB Last administered on 04/01/19at 12:00; Admin Dose 100 MLS/HR; Start 04/01/19 at 12:00 VTE Prophylaxis Risk score (from Ns)>0 risk: 6 SCD applied (from [facility]): Yes Lines/Catheters IV Catheter Type: Adams in Place: No Assessment/Plan Hospital Course Subjective No acute changes, Objective Physical exam General: Patient is laying in bed trach to vent Mentation: Patient is occasionally arousable however not oriented, Head: Normocephalic atraumatic Eyes: EOMI, pupils reactive to light Neck: Supple, nontender, midline Respiratory: Clear to auscultation bilaterally Cardiovascular: regular rate, no obvious murmurs Gastrointestinal: non-tender to palpation, bowel sounds heard. Neurological: Cannot properly assess due to mentation Skin: No new skin lesions Assessment/Plan 1. Acute on chronic hypoxic respiratory failure- stable - most likely secondary to pulmonary congestion - repeat CXR as needed - Continue on mechanical ventilation, patient was on SIMV mode at correction prior to this admission - Pulmonology consulted for vent management - Nebs on board Questionable tics -Possible breakthrough seizure -Medications per neurology -Neurology work-up pending 2. Acute on chronic diastolic heart failure - Continue on Lasix and monitor I/O and daily weights - BNP elevated - CXR noted for pulm congestion - Cardiology consulted 3. Afib with RVR, resolving -Patient's IV medications will now be switched over to oral medications per finisher denture - Continue on Eliquis at the current unique dose due to history of subdural hemorrhage 4. UTI - ID consultation appreciated - Urine cx showing gram neg rods - IV antibiotics Chronic urinary retention -Urology consulted -Patient failed a voiding trial -Reinsert Adams, questionable suprapubic catheter per urology recommendations versus chronic Adams. 5. 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 Diabetes Mellitus - check A1c 7. hypothyroidism - TSH within normal limits - continue levothyroxine 8. HTN 9. GERD - PPI 10. h/o CVA with L residual weakness 11. Seizures - continue keppra -Ativan as needed -We will consult neurology for breakthrough seizures 12. h/o breast CA s/p mastectomy 13. Disposition -Okay to downgrade to telemetry More than 40 minutes of critical care time was spent on this evaluation ROMEO DURAND Apr 01, 2019 15:58
--- NOTE | 2019-04-01 19:37 | CONS ---
Consult Date/Type/Reason Admit Date/Time Mar 29, 2019 at 13:25 Initial Consult Date 03/31/19 Type of Consultation: Urology Reason for Consultation Indwelling Adams catheter, urinary tract infection. Requesting Provider: ROMEO DURAND Date/Time of Note DATE: 04/01/19 TIME: 19:34 Subjective Patient herself is not communicative. Objective Vitals Vital Signs Date Temp Pulse Resp B/P (MAP) Pulse Ox O2 O2 Flow FiO2 Time Delivery Rate 04/01/19 68 18 99 30 17:15 04/01/19 98.0 148/100 Mechanical 15:54 (116) Ventilator Trach Collar Intake and Output 03/31/19 03/31/19 04/01/19 1515:00 23:00 07:00 IntakeIntake Total 1088.4 ml 780 ml 630 ml OutputOutput Total 1950 ml 1555 ml 610 ml BalanceBalance -861.6 ml -775 ml 20 ml Exam The Adams catheter was removed earlier today and according to the nursing staff the patient has voided and she was checked for postvoid residual 3 hours after she voided? Results/Medications Result Diagram: 04/01/19 0454 04/01/19 0457 Results 24 hrs Laboratory Tests Test 04/01/19 04:54 04/01/19 04:57 White Blood Count 6.0 Red Blood Count 3.72 L Hemoglobin 10.5 L Hematocrit 31.4 L Mean Corpuscular Volume 84.4 Mean Corpuscular Hemoglobin 28.2 L Mean Corpuscular Hemoglobin Concent 33.4 Red Cell Distribution Width 13.8 Platelet Count 209 Mean Platelet Volume 12.6 H Immature Granulocytes % 0.300 Neutrophils % 60.5 Lymphocytes % 19.3 Monocytes % 14.9 H Eosinophils % 4.5 Basophils % 0.5 Nucleated Red Blood Cells % 0.0 Immature Granulocytes # 0.020 Neutrophils # 3.6 Lymphocytes # 1.2 Monocytes # 0.9 Eosinophils # 0.3 Basophils # 0.0 Nucleated Red Blood Cells # 0.0 Sodium Level 143 Potassium Level 3.4 L Chloride Level 106 Carbon Dioxide Level 28 Anion Gap 9 Blood Urea Nitrogen 12 Creatinine 0.37 L Glucose Level 125 Calcium Level 8.1 L Phosphorus Level 3.5 Magnesium Level 2.2 Albumin 3.1 L Home Meds Reported Medications Clonazepam* (Clonazepam*) 0.5 Mg Tablet, 0.5 MG GTB BID, TAB 03/29/19 Potassium Chloride* (Potassium Chloride*) 20 Meq Tablet.er, 20 MEQ GTB DAILY, TAB.SA 03/29/19 Melatonin (Melatonin) 5 Mg Tablet, 5 MG GTB HS, TAB 03/29/19 Lovastatin* (Lovastatin*) 10 Mg Tablet, 10 MG GTB HS, TAB 03/29/19 Levothyroxine Sodium* (Levothyroxine Sodium*) 100 Mcg Tablet, 100 MCG GTB BEFORE BREAKFAST, #30 TAB 03/29/19 Levetiracetam* (Keppra* (Ped)) 100 Mg/Ml Liq, 15 ML GTB Q12H for 30 Days, BOTTLE 03/29/19 Apixaban* (Eliquis*) 2.5 Mg Tablet, 2.5 MG GTB DAILY, TAB 03/29/19 Amlodipine Besylate* (Amlodipine Besylate*) 10 Mg Tablet, 10 MG GTB DAILY, #30 TAB HOLD FOR SBP<110 OR HR<60 03/29/19 Dextran 70/Hypromellose/Pf (ARTIFICIAL TEARS DROPS) 1 Each Droperette, 1 EACH OP Q12H 03/29/19 Acetaminophen* (Acetaminophen*) 500 MG Extra Strength Tablet, 1000 MG GTB Q4H PRN for PAIN LEVEL 4-10, TAB 03/29/19 Acetaminophen* (Tylenol*) 325 Mg Tablet, 650 MG GTB PRN PRN for TRACH TUBE CHANGE, TAB 03/29/19 Acetaminophen* (Tylenol*) 325 Mg Tablet, 650 MG GTB Q4H PRN for MILD PAIN LEVEL 1-3, TAB AND FOR FEVER 101 AND ABOVE 03/29/19 Bisacodyl (Dulcolax) 10 Mg Supp.rect, 10 MG RC DAILY, SUPP.RECT 03/29/19 Sodium Phosphate,[place]-Dibasic (Enema Ready To Use) 133 Ml Enema, 133 ML RC Q2D, ENEMA 03/29/19 Magnesium Hydroxide* (Milk Of Magnesia*) 400 Mg/5 Ml Oral.susp, 30 ML GTB DAILY, ML 03/29/19 Docusate Sodium* (Colace*) 100 Mg Capsule, 100 MG GTB QHS, #30 CAP 03/29/19 Multivit &Minerals/Ferrous Fum (MULTIVITAMIN LIQUID) 9 Mg/15 Ml Liquid, 5 ML GTB DAILY 03/29/19 Ascorbic Acid (Vitamin C) 500 Mg Tab, 500 MG GTB BID, TAB 03/29/19 Ferrous Sulfate* (Ferrous Sulfate*) 220 Mg/5 Ml Solution, 7.5 ML GTB BID, ML 03/29/19 Cran/Vitc/Mannose/Inulin/Brom (Uti-Stat Liquid) 3,875 Mg/30 Ml Liquid, 30 MG GTB DAILY 03/29/19 Cranberry Extract (Cranberry) 425 Mg Capsule, 425 MG GTB BID, CAP 03/29/19 Medications Current Medications Acetaminophen (Tylenol Tab) 650 mg Q4H PRN GTB MILD PAIN LEVEL 1-3; Start 03/29/19 at 14:00 Apixaban (Eliquis) 2.5 mg DAILY GTB Last administered on 04/01/19 09:05; Admin Dose 2.5 MG; Start 03/30/19 at 09:00 Ascorbic Acid (Vitamin C) 500 mg BID GTB Last administered on 04/01/19 09:03; Admin Dose 500 MG; Start 03/29/19 at 21:00 Clonazepam (Klonopin) 0.5 mg BID GTB Last administered on 04/01/19 09:09; Admin Dose 0.5 MG; Start 03/29/19 at 21:00 Levetiracetam (Keppra Liquid) 1,500 mg Q12H GTB Last administered on 04/01/19 15:17; Admin Dose 1,500 MG; Start 03/29/19 at 14:00 Levothyroxine Sodium (Synthroid) 100 mcg BEFORE BREAKFAST GTB Last administered on 04/01/19 06:32; Admin Dose 100 MCG; Start 03/30/19 at 07:00 Magnesium Hydroxide (Milk Of Mag) 30 ml DAILY GTB Last administered on 04/01/19 09:09; Admin Dose 30 ML; Start 03/30/19 at 09:00 Melatonin (Melatonin) 5 mg HS GTB Last administered on 03/31/19 20:47; Admin Dose 5 MG; Start 03/29/19 at 21:00 Docusate Sodium (Colace Liquid Cup) 100 mg QHS GTB Last administered on 03/31/19 20:46; Admin Dose 100 MG; Start 03/29/19 at 21:00 Ondansetron HCl (Zofran Inj) 4 mg Q6H PRN IV NAUSEA AND/OR VOMITING; Start 03/29/19 at 15:00 Ipratropium [place] (Atrovent Hfa) 2 puff Q4H RESP THERAPY INH Last administered on 04/01/19 17:15; Admin Dose 2 PUFF; Start 03/29/19 at 17:00 Ipratropium [place] (Atrovent Hfa) 2 puff Q2H RESP THERAPY PRN INH SHORTNESS OF BREATH; Start 03/29/19 at 15:00 Lorazepam (Ativan) 1 mg Q2H PRN IV ANXIETY Last administered on 03/30/19 20: 21; Admin Dose 1 MG; Start 03/29/19 at 15:00 Atorvastatin Calcium (Lipitor) 10 mg DAILY@21 PO Last administered on 03/31/19 20:47; Admin Dose 10 MG; Start 03/29/19 at 21:00 Multivitamins/ Minerals (Theragran-M) 1 tab DAILY PO Last administered on 04/01/19 09:04; Admin Dose 1 TAB; Start 03/30/19 at 09:00 Eye Lubricant (Artificial Tears Oph) 1 drop Q12H PRN BOTH EYES DRY EYES; Start 03/29/19 at 18:30 Ferrous Sulfate (Feosol Liquid Cup) 300 mg BID GTB Last administered on 04/01/19 09:03; Admin Dose 300 MG; Start 03/29/19 at 21:00 Diltiazem HCl (Cardizem Iv) 5 mg Q4 PRN IV HR >110; Start 03/30/19 at 10:30 Carvedilol (Coreg) 12.5 mg BID GTB Last administered on 04/01/19 09:05; Admin Dose 12.5 MG; Start 03/30/19 at 21:00 Lisinopril (Zestril) 5 mg DAILY PO Last administered on 04/01/19 09:05; Admin Dose 5 MG; Start 03/31/19 at 09:00 Amiodarone HCl (Cordarone) 400 mg BID PO Last administered on 04/01/19 09:04; Admin Dose 400 MG; Start 03/31/19 at 10:30 Pantoprazole (Protonix Tab) 40 mg DAILY@06 PO Last administered on 7/2/19at 06:32; Admin Dose 40 MG; Start 03/31/19 at 12:00 Furosemide (Lasix) 40 mg DAILY NGT ; Start 04/02/19 at 09:00 Ceftriaxone Sodium 50 ml @ 100 mls/hr Q24H IVPB Last administered on 04/01/19at 12:00; Admin Dose 100 MLS/HR; Start 04/01/19 at 12:00 Assessment/Plan Hospital Course (Demo Recall) 64-year-old female with multiple medical problems that include: 1- Acute on chronic hypoxic respiratory failure 2. Acute on chronic diastolic heart failure 3. Afib with RVR 4. UTI, hx ESBL per [place] [facility] [place] 5. Chronic encephalopathy, secondary to subdural hematoma in 2017 s/p evacuation 6. Diabetes Mellitus 7. hypothyroidism 8. HTN 9. GERD 10. h/o CVA with L residual weakness 11. Seizures 12. h/o breast CA s/p mastectomy Patient was transferred from the [facility] because of shortness of breath. Patient does have urinary tract infection and according to her family she has been getting more infections in the past 5 to 6 months. Her daughter states that patient was able to void on her own before and at one time she has not urinated in about 6 hours and because of that the nursing staff inserted a Adams catheter and told them that they need to keep the Adams catheter in. On the examination the abdomen is large and a little obese. Adams catheter is draining well. Pelvic exam showed no mass and no discharge. In her case it is not uncommon to develop bladder infections because of fecal incontinence and vaginal contamination. As discussed with her daughter before the Adams catheter was removed and apparently the patient did urinate. And the postvoid residual was done but not immediately after she voided. We will try to check her postvoid residual right after she voids and then decide whether she needs a Adams catheter or not. AJ WILSON MD Apr 01, 2019 19:37
[2019-04-01] MEDS: DOCUSATE SODIUM 10 MG/ML (10ML CUP) GTB SCH (20:35)
[2019-04-01] MEDS: MELATONIN 5 MG TABLET GTB SCH (20:35)
[2019-04-01] MEDS: ATORVASTATIN 10 MG TAB PO SCH (20:38)
[2019-04-02] VITALS (18 sets, daily range): BP systolic 104–166; BP diastolic 58–96; PULSE 53–58; RESP 14–22
[2019-04-02] MEDS: IPRATROPIUM (HFA) 12.9 GM INHALER INH SCH ×6 (01:31→21:11)
[2019-04-02] MEDS: LEVETIRACETAM (100 MG/ML) 5ML CUP GTB SCH ×2 (01:50→14:38)
[2019-04-02] MEDS: PANTOPRAZOLE (EC) 40 MG TAB PO SCH (05:11)
[2019-04-02] MEDS: LEVOTHYROXINE 100 MCG TAB GTB SCH (06:19)
--- NOTE | 2019-04-02 08:12 | CONS ---
Consult Date/Type/Reason Admit Date/Time Mar 29, 2019 at 13:25 Initial Consult Date 03/31/19 Type of Consultation: Urology Reason for Consultation Recurrent urinary tract infection. Requesting Provider: ROMEO DURAND Date/Time of Note DATE: 04/02/19 TIME: 08:08 Subjective Patient is not communicative and is on a respirator Objective Vitals Vital Signs Date Temp Pulse Resp B/P (MAP) Pulse Ox O2 O2 Flow FiO2 Time Delivery Rate 04/02/19 98.0 58 20 166/67 96 Mechanical 08:07 (100) Ventilator Trach Collar 04/02/19 30 07:20 Intake and Output 04/01/19 04/01/19 04/02/19 1515:00 23:00 07:00 IntakeIntake Total 380 ml 1040 ml OutputOutput Total 550 ml 200 ml BalanceBalance -170 ml 840 ml Exam Since the Adams was removed the patient has been voiding and her postvoid residual has been about 47 mL and 78 mL and another time bladder scan showed 254 mL but is less than 300 therefore no straight catheterization was indicated. Results/Medications Result Diagram: 04/02/19 0547 04/02/19 0547 Results 24 hrs Laboratory Tests Test 04/02/19 05:47 White Blood Count 6.1 Red Blood Count 3.87 L Hemoglobin 11.0 L Hematocrit 32.9 L Mean Corpuscular Volume 85.0 Mean Corpuscular Hemoglobin 28.4 L Mean Corpuscular Hemoglobin Concent 33.4 Red Cell Distribution Width 14.2 Platelet Count 198 Mean Platelet Volume 12.4 H Immature Granulocytes % 0.300 Neutrophils % 57.7 Lymphocytes % 20.3 Monocytes % 15.2 H Eosinophils % 5.5 Basophils % 1.0 Nucleated Red Blood Cells % 0.0 Immature Granulocytes # 0.020 Neutrophils # 3.5 Lymphocytes # 1.2 Monocytes # 0.9 Eosinophils # 0.3 Basophils # 0.1 Nucleated Red Blood Cells # 0.0 Sodium Level 141 Potassium Level 3.5 Chloride Level 107 Carbon Dioxide Level 25 Anion Gap 9 Blood Urea Nitrogen 10 Creatinine 0.36 L Est Glomerular Filtrat Rate mL/min > 60 Glucose Level 145 Calcium Level 8.5 Phosphorus Level 4.0 Magnesium Level 2.4 Home Meds Reported Medications Clonazepam* (Clonazepam*) 0.5 Mg Tablet, 0.5 MG GTB BID, TAB 03/29/19 Potassium Chloride* (Potassium Chloride*) 20 Meq Tablet.er, 20 MEQ GTB DAILY, TAB.SA 03/29/19 Melatonin (Melatonin) 5 Mg Tablet, 5 MG GTB HS, TAB 03/29/19 Lovastatin* (Lovastatin*) 10 Mg Tablet, 10 MG GTB HS, TAB 03/29/19 Levothyroxine Sodium* (Levothyroxine Sodium*) 100 Mcg Tablet, 100 MCG GTB BEFORE BREAKFAST, #30 TAB 03/29/19 Levetiracetam* (Keppra* (Ped)) 100 Mg/Ml Liq, 15 ML GTB Q12H for 30 Days, BOTTLE 03/29/19 Apixaban* (Eliquis*) 2.5 Mg Tablet, 2.5 MG GTB DAILY, TAB 03/29/19 Amlodipine Besylate* (Amlodipine Besylate*) 10 Mg Tablet, 10 MG GTB DAILY, #30 TAB HOLD FOR SBP<110 OR HR<60 03/29/19 Dextran 70/Hypromellose/Pf (ARTIFICIAL TEARS DROPS) 1 Each Droperette, 1 EACH OP Q12H 03/29/19 Acetaminophen* (Acetaminophen*) 500 MG Extra Strength Tablet, 1000 MG GTB Q4H PRN for PAIN LEVEL 4-10, TAB 03/29/19 Acetaminophen* (Tylenol*) 325 Mg Tablet, 650 MG GTB PRN PRN for TRACH TUBE CHANGE, TAB 03/29/19 Acetaminophen* (Tylenol*) 325 Mg Tablet, 650 MG GTB Q4H PRN for MILD PAIN LEVEL 1-3, TAB AND FOR FEVER 101 AND ABOVE 03/29/19 Bisacodyl (Dulcolax) 10 Mg Supp.rect, 10 MG RC DAILY, SUPP.RECT 03/29/19 Sodium Phosphate,[place]-Dibasic (Enema Ready To Use) 133 Ml Enema, 133 ML RC Q2D, ENEMA 03/29/19 Magnesium Hydroxide* (Milk Of Magnesia*) 400 Mg/5 Ml Oral.susp, 30 ML GTB DAILY, ML 03/29/19 Docusate Sodium* (Colace*) 100 Mg Capsule, 100 MG GTB QHS, #30 CAP 03/29/19 Multivit &Minerals/Ferrous Fum (MULTIVITAMIN LIQUID) 9 Mg/15 Ml Liquid, 5 ML GTB DAILY 03/29/19 Ascorbic Acid (Vitamin C) 500 Mg Tab, 500 MG GTB BID, TAB 03/29/19 Ferrous Sulfate* (Ferrous Sulfate*) 220 Mg/5 Ml Solution, 7.5 ML GTB BID, ML 03/29/19 Cran/Vitc/Mannose/Inulin/Brom (Uti-Stat Liquid) 3,875 Mg/30 Ml Liquid, 30 MG GTB DAILY 03/29/19 Cranberry Extract (Cranberry) 425 Mg Capsule, 425 MG GTB BID, CAP 03/29/19 Medications Current Medications Acetaminophen (Tylenol Tab) 650 mg Q4H PRN GTB MILD PAIN LEVEL 1-3; Start 03/29/19 at 14:00 Apixaban (Eliquis) 2.5 mg DAILY GTB Last administered on 04/01/19 09:05; Admin Dose 2.5 MG; Start 03/30/19 at 09:00 Ascorbic Acid (Vitamin C) 500 mg BID GTB Last administered on 04/01/19 20:35; Admin Dose 500 MG; Start 03/29/19 at 21:00 Clonazepam (Klonopin) 0.5 mg BID GTB Last administered on 04/01/19 20:35; Admin Dose 0.5 MG; Start 03/29/19 at 21:00 Levetiracetam (Keppra Liquid) 1,500 mg Q12H GTB Last administered on 04/02/19at 01:50; Admin Dose 1,500 MG; Start 03/29/19 at 14:00 Levothyroxine Sodium (Synthroid) 100 mcg BEFORE BREAKFAST GTB Last administered on 04/02/19 06:19; Admin Dose 100 MCG; Start 03/30/19 at 07:00 Magnesium Hydroxide (Milk Of Mag) 30 ml DAILY GTB Last administered on 04/01/19 09:09; Admin Dose 30 ML; Start 03/30/19 at 09:00 Melatonin (Melatonin) 5 mg HS GTB Last administered on 04/01/19 20:35; Admin Dose 5 MG; Start 03/29/19 at 21:00 Docusate Sodium (Colace Liquid Cup) 100 mg QHS GTB Last administered on 04/01/19 20:35; Admin Dose 100 MG; Start 03/29/19 at 21:00 Ondansetron HCl (Zofran Inj) 4 mg Q6H PRN IV NAUSEA AND/OR VOMITING; Start 03/29/19 at 15:00 Ipratropium [place] (Atrovent Hfa) 2 puff Q4H RESP THERAPY INH Last administered on 04/02/19 08:00; Admin Dose 2 PUFF; Start 03/29/19 at 17:00 Ipratropium [place] (Atrovent Hfa) 2 puff Q2H RESP THERAPY PRN INH SHORTNESS OF BREATH; Start 03/29/19 at 15:00 Lorazepam (Ativan) 1 mg Q2H PRN IV ANXIETY Last administered on 03/30/19 20:21; Admin Dose 1 MG; Start 03/29/19 at 15:00 Atorvastatin Calcium (Lipitor) 10 mg DAILY@21 PO Last administered on 04/01/19 20:38; Admin Dose 10 MG; Start 03/29/19 at 21:00 Multivitamins/ Minerals (Theragran-M) 1 tab DAILY PO Last administered on 04/01/19 09:04; Admin Dose 1 TAB; Start 03/30/19 at 09:00 Eye Lubricant (Artificial Tears Oph) 1 drop Q12H PRN BOTH EYES DRY EYES; Start 03/29/19 at 18:30 Ferrous Sulfate (Feosol Liquid Cup) 300 mg BID GTB Last administered on 04/01/19 20:35; Admin Dose 300 MG; Start 03/29/19 at 21:00 Diltiazem HCl (Cardizem Iv) 5 mg Q4 PRN IV HR >110; Start 03/30/19 at 10:30 Carvedilol (Coreg) 12.5 mg BID GTB Last administered on 04/01/19 20:38; Admin Dose 12.5 MG; Start 03/30/19 at 21:00 Lisinopril (Zestril) 5 mg DAILY PO Last administered on 04/01/19 09:05; Admin Dose 5 MG; Start 03/31/19 at 09:00 Amiodarone HCl (Cordarone) 400 mg BID PO Last administered on 04/01/19 20:38; Admin Dose 400 MG; Start 03/31/19 at 10:30 Pantoprazole (Protonix Tab) 40 mg DAILY@06 PO Last administered on 7/3/19at 05:11; Admin Dose 40 MG; Start 03/31/19 at 12:00 Furosemide (Lasix) 40 mg DAILY NGT ; Start 04/02/19 at 09:00 Ceftriaxone Sodium 50 ml @ 100 mls/hr Q24H IVPB Last administered on 04/01/19at 12:00; Admin Dose 100 MLS/HR; Start 04/01/19 at 12:00 Assessment/Plan Hospital Course (Demo Recall) 64-year-old female with multiple medical problems that include: 1- Acute on chronic hypoxic respiratory failure 2. Acute on chronic diastolic heart failure 3. Afib with RVR 4. UTI, hx ESBL per [place] [facility] [place] 5. Chronic encephalopathy, secondary to subdural hematoma in 2017 s/p evacuation 6. Diabetes Mellitus 7. hypothyroidism 8. HTN 9. GERD 10. h/o CVA with L residual weakness 11. Seizures 12. h/o breast CA s/p mastectomy Patient was transferred from the [facility] to [facility] because of shortness of breath. Patient does have urinary tract infection and according to her family she has been getting more infections in the past 5 to 6 months. Her daughter states that patient was able to void on her own before and at one time she has not urinated in about 6 hours and because of that the nursing staff inserted a Adams catheter and told them that they need to keep the Adams catheter in. The Adams catheter was removed on 04/01/2019 and the patient has been voiding and her postvoid residual has not been high to require in and out catheterization. Therefore we will not insert a catheter and would leave her catheter free AJ WILSON MD Apr 02, 2019 08:12
[2019-04-02] MEDS ORDERED: LIDOCAINE 1% (MPF) 5 ML VIAL ONE (08:52)
[2019-04-02] MEDS ORDERED: POTASSIUM CHLORIDE 20 MEQ POWDER FOR ORAL SOLN NGT ONE (10:30)
[2019-04-02] MEDS: LISINOPRIL 5 MG TAB PO SCH (10:51)
[2019-04-02] MEDS: ASCORBIC ACID 500 MG TAB GTB SCH ×2 (10:51→20:47)
[2019-04-02] MEDS: AMIODARONE 200 MG TAB PO SCH ×2 (10:51→20:47)
[2019-04-02] MEDS: FUROSEMIDE 40 MG TAB NGT SCH (10:52)
[2019-04-02] MEDS: APIXABAN 5 MG TABLET GTB SCH (10:52)
[2019-04-02] MEDS: FERROUS SULFATE 60 MG/ML 5ML CUP GTB SCH ×2 (10:52→20:47)
[2019-04-02] MEDS: MULTIVITAMINS/MINERALS TAB PO SCH (10:52)
[2019-04-02] MEDS: MAGNESIUM HYDROXIDE 30ML CUP GTB SCH (10:53)
[2019-04-02] MEDS: clonAZEPAM 0.5 MG TAB GTB SCH ×2 (10:57→20:51)
[2019-04-02] MEDS: ACETAMINOPHEN 325 MG TAB GTB PRN (10:57)
--- NOTE | 2019-04-02 11:10 | CONS ---
Assessment/Plan Assessment/Plan Hospital Course (Demo Recall) Paroxysmal atrial fibrillation with RVR: On an odd dose of Eliquis 2.5mg daily but with h/o SDH and likely no clinical effect from recurrent stroke, will assume someone has addressed this dose as outpt. Presented in RVR, now back in sinus after amiodarone drip Acute on ?chronic systolic heart failure: Decompensated on exam and by CXR on admission. Also with low albumin which is contributing. Resolved Cardiomyopathy: EF 25-30%. ?etiology. Not a candidate for workup vegetative state/encephalopathy due to prior CVA and SDG SDH 2016 s/p evacuation Acute on chronic VDRF/trached: s/p thora 04/02 HTN seizures -amiodarone 400mg BID x 1 week, then 04/07 switch to 200mg BID x 1 week, then 200mg daily chronically -lasix 40mg PO daily -coreg 12.5mg BID -lisinopril 5mg -continue Eliquis Consultation Date/Type/Reason Admit Date/Time Mar 29, 2019 at 13:25 Initial Consult Date 03/30/19 Type of Consult Cardiology Requesting Provider: ROMEO DURAND Date/Time of Note DATE: 04/02/19 TIME: 11:09 24 HR Interval Summary Free Text/Dictation S/p right thora with 1L removed. Remains in sinus Exam/Review of Systems Vital Signs Vitals Vital Signs Date Temp Pulse Resp B/P (MAP) Pulse Ox O2 O2 Flow FiO2 Time Delivery Rate 04/02/19 54 15 99 30 09:45 04/02/19 98.0 110/58 Mechanical 08:45 (75) Ventilator Intake and Output 04/01/19 04/01/19 04/02/19 1515:00 23:00 07:00 IntakeIntake Total 380 ml 1040 ml OutputOutput Total 550 ml 200 ml BalanceBalance -170 ml 840 ml Exam Constitutional: No alert, No oriented ENMT: other (s/p trach) Neck: No jvd (unable to assess) Respiratory: diminished breath sounds; No clear to auscultation Cardiovascular: regular rate and rhythm; No edema Gastrointestinal: soft; No distended Neurological: No nl mental status, No nl speech Labs Result Diagram: 04/02/19 0547 04/02/19 0547 Results 24hrs Laboratory Tests Test 04/02/19 05:47 04/02/19 08:10 White Blood Count 6.1 Red Blood Count 3.87 L Hemoglobin 11.0 L Hematocrit 32.9 L Mean Corpuscular Volume 85.0 Mean Corpuscular Hemoglobin 28.4 L Mean Corpuscular Hemoglobin Concent 33.4 Red Cell Distribution Width 14.2 Platelet Count 198 Mean Platelet Volume 12.4 H Immature Granulocytes % 0.300 Neutrophils % 57.7 Lymphocytes % 20.3 Monocytes % 15.2 H Eosinophils % 5.5 Basophils % 1.0 Nucleated Red Blood Cells % 0.0 Immature Granulocytes # 0.020 Neutrophils # 3.5 Lymphocytes # 1.2 Monocytes # 0.9 Eosinophils # 0.3 Basophils # 0.1 Nucleated Red Blood Cells # 0.0 Sodium Level 141 Potassium Level 3.5 Chloride Level 107 Carbon Dioxide Level 25 Anion Gap 9 Blood Urea Nitrogen 10 Creatinine 0.36 L Est Glomerular Filtrat Rate mL/min > 60 Glucose Level 145 Calcium Level 8.5 Phosphorus Level 4.0 Magnesium Level 2.4 Body Fluid Type THORACENTESIS FLUID Body Fluid Volume 950.0 Body Fluid Color YELLOW Body Fluid Appearance CLOUDY Body Fluid WBC 451 Body Fluid RBC (Auto) 7000 Body Fluid Polynuclear WBCs (%) 14.2 Body Fluid Mononuclear Cells % Auto 85.8 Body Fluid Glucose 119 Body Fluid Total Protein 4.2 Body Fluid Lactate Dehydrogenase 408 Medications Medications Current Medications Acetaminophen (Tylenol Tab) 650 mg Q4H PRN GTB MILD PAIN LEVEL 1-3 Last admi nistered on 04/02/19 10:57; Admin Dose 650 MG; Start 03/29/19 at 14:00 Apixaban (Eliquis) 2.5 mg DAILY GTB Last administered on 04/02/19 10:52; Admin Dose 2.5 MG; Start 03/30/19 at 09:00 Ascorbic Acid (Vitamin C) 500 mg BID GTB Last administered on 04/02/19 10:51; Admin Dose 500 MG; Start 03/29/19 at 21:00 Clonazepam (Klonopin) 0.5 mg BID GTB Last administered on 04/02/19 10:57; Admin Dose 0.5 MG; Start 03/29/19 at 21:00 Levetiracetam (Keppra Liquid) 1,500 mg Q12H GTB Last administered on 04/02/19 01:50; Admin Dose 1,500 MG; Start 03/29/19 at 14:00 Levothyroxine Sodium (Synthroid) 100 mcg BEFORE BREAKFAST GTB Last administered on 04/02/19 06:19; Admin Dose 100 MCG; Start 03/30/19 at 07:00 Magnesium Hydroxide (Milk Of Mag) 30 ml DAILY GTB Last administered on 04/02/19 10:53; Admin Dose 30 ML; Start 03/30/19 at 09:00 Melatonin (Melatonin) 5 mg HS GTB Last administered on 04/01/19 20:35; Admin Dose 5 MG; Start 03/29/19 at 21:00 Docusate Sodium (Colace Liquid Cup) 100 mg QHS GTB Last administered on 04/01/19 20:35; Admin Dose 100 MG; Start 03/29/19 at 21:00 Ondansetron HCl (Zofran Inj) 4 mg Q6H PRN IV NAUSEA AND/OR VOMITING; Start 03/29/19 at 15:00 Ipratropium [place] (Atrovent Hfa) 2 puff Q4H RESP THERAPY INH Last administered on 04/02/19 08:00; Admin Dose 2 PUFF; Start 03/29/19 at 17:00 Ipratropium [place] (Atrovent Hfa) 2 puff Q2H RESP THERAPY PRN INH SHORTNESS OF BREATH; Start 03/29/19 at 15:00 Lorazepam (Ativan) 1 mg Q2H PRN IV ANXIETY Last administered on 03/30/19 20:21; Admin Dose 1 MG; Start 03/29/19 at 15:00 Atorvastatin Calcium (Lipitor) 10 mg DAILY@21 PO Last administered on 04/01/19 20:38; Admin Dose 10 MG; Start 03/29/19 at 21:00 Multivitamins/ Minerals (Theragran-M) 1 tab DAILY PO Last administered on 04/02/19 10:52; Admin Dose 1 TAB; Start 03/30/19 at 09:00 Eye Lubricant (Artificial Tears Oph) 1 drop Q12H PRN BOTH EYES DRY EYES; Start 03/29/19 at 18:30 Ferrous Sulfate (Feosol Liquid Cup) 300 mg BID GTB Last administered on 04/02/19 10:52; Admin Dose 300 MG; Start 03/29/19 at 21:00 Diltiazem HCl (Cardizem Iv) 5 mg Q4 PRN IV HR >110; Start 03/30/19 at 10:30 Carvedilol (Coreg) 12.5 mg BID GTB Last administered on 04/02/19at 10:51; Admin Dose 12.5 MG; Start 03/30/19 at 21:00 Lisinopril (Zestril) 5 mg DAILY PO Last administered on 04/02/19 10:51; Admin Dose 5 MG; Start 03/31/19 at 09:00 Amiodarone HCl (Cordarone) 400 mg BID PO Last administered on 04/02/19 10:51; Admin Dose 400 MG; Start 03/31/19 at 10:30 Pantoprazole (Protonix Tab) 40 mg DAILY@06 PO Last administered on 04/02/19at 05:11; Admin Dose 40 MG; Start 03/31/19 at 12:00 Furosemide (Lasix) 40 mg DAILY NGT Last administered on 04/02/19 10:52; Admin Dose 40 MG; Start 04/02/19 at 09:00 Ceftriaxone Sodium 50 ml @ 100 mls/hr Q24H IVPB Last administered on 04/01/19 12:00; Admin Dose 100 MLS/HR; Start 04/01/19 at 12:00 MIREYA ZAMARRIPA Apr 02, 2019 11:10
[2019-04-02] MEDS: CEFTRIAXONE 1 GM/50 ML (PMX) 50 ML IVPB SCH (12:38)
--- NOTE | 2019-04-02 14:07 | CONS ---
Assessment/Plan Assessment/Plan Hospital Course (Demo Recall) No acute events overnight patient looks comfortable Urine culture growing E. coli/Proteus Indwelling: Trach PEG Allergy: Penicillin, vancomycin Antimicrobials: Rocephin Physical examination: Chronically ill-appearing elderly woman who is in no distress. Head atraumatic normocephalic neck is supple chest rise symmetrical breath sounds diminished bases heart: S1-S2. Abdomen soft bowel sounds present. Assessment: 1. Acute on chronic hypoxemic respiratory failure secondary to pulmonary congestion 2. Urinary tract infection, gram-negative rods 3. Atrial fibrillation s/p rapid ventricular response 4. 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 Diabetes 6. Hypertension Plan: Stable, continue on current antibiotics to complete 7 days, follow cardiology/pulmonary recommendations, bladder Scan and straight caths as needed Consultation Date/Type/Reason Admit Date/Time Mar 29, 2019 at 13:25 Initial Consult Date Type of Consult id Requesting Provider: ROMEO DURAND Date/Time of Note DATE: 04/02/19 TIME: 14:06 Exam/Review of Systems Exam Vitals Vital Signs Date Temp Pulse Resp B/P (MAP) Pulse Ox O2 O2 Flow FiO2 Time Delivery Rate 04/02/19 55 14 99 30 13:26 04/02/19 98.0 151/96 Room Air 12:00 (114) Mechanical Ventilator Trach Collar Intake and Output 04/01/19 04/01/19 04/02/19 1414:59 22:59 06:59 IntakeIntake Total 440 ml 1040 ml OutputOutput Total 650 ml 200 ml BalanceBalance -210 ml 840 ml Results Result Diagram: 04/02/19 0547 04/02/19 0547 Results 24hrs Laboratory Tests Test 04/02/19 05:47 04/02/19 08:10 White Blood Count 6.1 Red Blood Count 3.87 L Hemoglobin 11.0 L Hematocrit 32.9 L Mean Corpuscular Volume 85.0 Mean Corpuscular Hemoglobin 28.4 L Mean Corpuscular Hemoglobin Concent 33.4 Red Cell Distribution Width 14.2 Platelet Count 198 Mean Platelet Volume 12.4 H Immature Granulocytes % 0.300 Neutrophils % 57.7 Lymphocytes % 20.3 Monocytes % 15.2 H Eosinophils % 5.5 Basophils % 1.0 Nucleated Red Blood Cells % 0.0 Immature Granulocytes # 0.020 Neutrophils # 3.5 Lymphocytes # 1.2 Monocytes # 0.9 Eosinophils # 0.3 Basophils # 0.1 Nucleated Red Blood Cells # 0.0 Sodium Level 141 Potassium Level 3.5 Chloride Level 107 Carbon Dioxide Level 25 Anion Gap 9 Blood Urea Nitrogen 10 Creatinine 0.36 L Est Glomerular Filtrat Rate mL/min > 60 Glucose Level 145 Calcium Level 8.5 Phosphorus Level 4.0 Magnesium Level 2.4 Body Fluid Type THORACENTESIS FLUID Body Fluid Volume 950.0 Body Fluid Color YELLOW Body Fluid Appearance CLOUDY Body Fluid WBC 451 Body Fluid RBC (Auto) 7000 Body Fluid Polynuclear WBCs (%) 14.2 Body Fluid Mononuclear Cells % Auto 85.8 Body Fluid Glucose 119 Body Fluid Total Protein 4.2 Body Fluid Lactate Dehydrogenase 408 Medications Medication Current Medications Acetaminophen (Tylenol Tab) 650 mg Q4H PRN GTB MILD PAIN LEVEL 1-3 Last administered on 04/02/19 10:57; Admin Dose 650 MG; Start 03/29/19 at 14:00 Apixaban (Eliquis) 2.5 mg DAILY GTB Last administered on 04/02/19 10:52; Admin Dose 2.5 MG; Start 03/30/19 at 09:00 Ascorbic Acid (Vitamin C) 500 mg BID GTB Last administered on 04/02/19 10:51; Admin Dose 500 MG; Start 03/29/19 at 21:00 Clonazepam (Klonopin) 0.5 mg BID GTB Last administered on 04/02/19 10:57; Admin Dose 0.5 MG; Start 03/29/19 at 21:00 Levetiracetam (Keppra Liquid) 1,500 mg Q12H GTB Last administered on 04/02/19 01:50; Admin Dose 1,500 MG; Start 03/29/19 at 14:00 Levothyroxine Sodium (Synthroid) 100 mcg BEFORE BREAKFAST GTB Last administered on 04/02/19 06:19; Admin Dose 100 MCG; Start 03/30/19 at 07:00 Magnesium Hydroxide (Milk Of Mag) 30 ml DAILY GTB Last administered on 04/02/19 10:53; Admin Dose 30 ML; Start 03/30/19 at 09:00 Melatonin (Melatonin) 5 mg HS GTB Last administered on 04/01/19 20:35; Admin Dose 5 MG; Start 03/29/19 at 21:00 Docusate Sodium (Colace Liquid Cup) 100 mg QHS GTB Last administered on 04/01/19 20:35; Admin Dose 100 MG; Start 03/29/19 at 21:00 Ondansetron HCl (Zofran Inj) 4 mg Q6H PRN IV NAUSEA AND/OR VOMITING; Start 03/29/19 at 15:00 Ipratropium [place] (Atrovent Hfa) 2 puff Q4H RESP THERAPY INH Last administered on 04/02/19 08:00; Admin Dose 2 PUFF; Start 03/29/19 at 17:00 Ipratropium [place] (Atrovent Hfa) 2 puff Q2H RESP THERAPY PRN INH SHORTNESS OF BREATH; Start 03/29/19 at 15:00 Lorazepam (Ativan) 1 mg Q2H PRN IV ANXIETY Last administered on 03/30/19 20:21; Admin Dose 1 MG; Start 03/29/19 at 15:00 Atorvastatin Calcium (Lipitor) 10 mg DAILY@21 PO Last administered on 04/01/19 20:38; Admin Dose 10 MG; Start 03/29/19 at 21:00 Multivitamins/ Minerals (Theragran-M) 1 tab DAILY PO Last administered on 04/02/19 10:52; Admin Dose 1 TAB; Start 03/30/19 at 09:00 Eye Lubricant (Artificial Tears Oph) 1 drop Q12H PRN BOTH EYES DRY EYES; Start 03/29/19 at 18:30 Ferrous Sulfate (Feosol Liquid Cup) 300 mg BID GTB Last administered on 04/02/19 10:52; Admin Dose 300 MG; Start 03/29/19 at 21:00 Diltiazem HCl (Cardizem Iv) 5 mg Q4 PRN IV HR >110; Start 03/30/19 at 10:30 Carvedilol (Coreg) 12.5 mg BID GTB Last administered on 04/02/19 10:51; Admin Dose 12.5 MG; Start 03/30/19 at 21:00 Lisinopril (Zestril) 5 mg DAILY PO Last administered on 04/02/19 10:51; Admin Dose 5 MG; Start 03/31/19 at 09:00 Amiodarone HCl (Cordarone) 400 mg BID PO Last administered on 04/02/19at 10:51; Admin Dose 400 MG; Start 03/31/19 at 10:30 Pantoprazole (Protonix Tab) 40 mg DAILY@06 PO Last administered on 04/02/19at 05:11; Admin Dose 40 MG; Start 03/31/19 at 12:00 Furosemide (Lasix) 40 mg DAILY NGT Last administered on 04/02/19at 10:52; Admin Dose 40 MG; Start 04/02/19 at 09:00 Ceftriaxone Sodium 50 ml @ 100 mls/hr Q24H IVPB Last administered on 04/02/19 12:38; Admin Dose 100 MLS/HR; Start 04/01/19 at 12:00 JASPER QUINTERO NP Apr 02, 2019 14:07
--- NOTE | 2019-04-02 17:29 | CONS ---
Consult Date/Type/Reason Admit Date/Time Mar 29, 2019 at 13:25 Initial Consult Date 03/30/19 Type of Consult Pulmonary Requesting Provider: ROMEO DURAND Date/Time of Note DATE: 04/02/19 TIME: 17:29 Subjective No significant changes. Patient remains stable. Objective Vital Signs Date Temp Pulse Resp B/P (MAP) Pulse Ox O2 O2 Flow FiO2 Time Delivery Rate 04/02/19 56 14 99 30 17:02 04/02/19 98.0 151/96 Room Air 12:00 (114) Mechanical Ventilator Trach Collar Intake and Output 04/01/19 04/01/19 04/02/19 1515:00 23:00 07:00 IntakeIntake Total 380 ml 1040 ml OutputOutput Total 550 ml 200 ml BalanceBalance -170 ml 840 ml Exam PHYSICAL EXAMINATION: GENERAL: A chronically ill-appearing lady, on mechanical ventilation via tracheostomy. VITAL SIGNS: NECK: Supple. No JVD or lymphadenopathy. CARDIAC: Sounds 1 and 2, no added sounds or murmurs. CHEST: Diminished air entry bilaterally. ABDOMEN: Soft, nontender. No guarding or rebound. EXTREMITIES: No cyanosis, clubbing, edema. NEUROLOGIC: Unable to assess. Vent Setting Ventilator Support Mode: AC, VC plus Fraction of Inspired Oxygen pe: 30 Positive End Expiratory Pressu: 5.0 Results/Medications Result Diagram: 04/02/19 0547 04/02/19 0547 Results 24 hrs Laboratory Tests Test 04/02/19 05:47 04/02/19 08:10 White Blood Count 6.1 Red Blood Count 3.87 L Hemoglobin 11.0 L Hematocrit 32.9 L Mean Corpuscular Volume 85.0 Mean Corpuscular Hemoglobin 28.4 L Mean Corpuscular Hemoglobin Concent 33.4 Red Cell Distribution Width 14.2 Platelet Count 198 Mean Platelet Volume 12.4 H Immature Granulocytes % 0.300 Neutrophils % 57.7 Lymphocytes % 20.3 Monocytes % 15.2 H Eosinophils % 5.5 Basophils % 1.0 Nucleated Red Blood Cells % 0.0 Immature Granulocytes # 0.020 Neutrophils # 3.5 Lymphocytes # 1.2 Monocytes # 0.9 Eosinophils # 0.3 Basophils # 0.1 Nucleated Red Blood Cells # 0.0 Sodium Level 141 Potassium Level 3.5 Chloride Level 107 Carbon Dioxide Level 25 Anion Gap 9 Blood Urea Nitrogen 10 Creatinine 0.36 L Est Glomerular Filtrat Rate mL/min > 60 Glucose Level 145 Calcium Level 8.5 Phosphorus Level 4.0 Magnesium Level 2.4 Body Fluid Type THORACENTESIS FLUID Body Fluid Volume 950.0 Body Fluid Color YELLOW Body Fluid Appearance CLOUDY Body Fluid WBC 451 Body Fluid RBC (Auto) 7000 Body Fluid Polynuclear WBCs (%) 14.2 Body Fluid Mononuclear Cells % Auto 85.8 Body Fluid Glucose 119 Body Fluid Total Protein 4.2 Body Fluid Lactate Dehydrogenase 408 Medications Current Medications Acetaminophen (Tylenol Tab) 650 mg Q4H PRN GTB MILD PAIN LEVEL 1-3 Last administered on 04/02/19 10:57; Admin Dose 650 MG; Start 03/29/19 at 14:00 Apixaban (Eliquis) 2.5 mg DAILY GTB Last administered on 04/02/19 10:52; Admin Dose 2.5 MG; Start 03/30/19 at 09:00 Ascorbic Acid (Vitamin C) 500 mg BID GTB Last administered on 04/02/19 10:51; Admin Dose 500 MG; Start 03/29/19 at 21:00 Clonazepam (Klonopin) 0.5 mg BID GTB Last administered on 04/02/19 10:57; Admin Dose 0.5 MG; Start 03/29/19 at 21:00 Levetiracetam (Keppra Liquid) 1,500 mg Q12H GTB Last administered on 04/02/19 14:38; Admin Dose 1,500 MG; Start 03/29/19 at 14:00 Levothyroxine Sodium (Synthroid) 100 mcg BEFORE BREAKFAST GTB Last administered on 04/02/19 06:19; Admin Dose 100 MCG; Start 03/30/19 at 07:00 Magnesium Hydroxide (Milk Of Mag) 30 ml DAILY GTB Last administered on 04/02/19 10:53; Admin Dose 30 ML; Start 03/30/19 at 09:00 Melatonin (Melatonin) 5 mg HS GTB Last administered on 04/01/19 20:35; Admin Dose 5 MG; Start 03/29/19 at 21:00 Docusate Sodium (Colace Liquid Cup) 100 mg QHS GTB Last administered on 04/01/19 20:35; Admin Dose 100 MG; Start 03/29/19 at 21:00 Ondansetron HCl (Zofran Inj) 4 mg Q6H PRN IV NAUSEA AND/OR VOMITING; Start 03/29/19 at 15:00 Ipratropium [place] (Atrovent Hfa) 2 puff Q4H RESP THERAPY INH Last administered on 04/02/19 17:05; Admin Dose 2 PUFF; Start 03/29/19 at 17:00 Ipratropium [place] (Atrovent Hfa) 2 puff Q2H RESP THERAPY PRN INH SHORTNESS OF BREATH; Start 03/29/19 at 15:00 Lorazepam (Ativan) 1 mg Q2H PRN IV ANXIETY Last administered on 03/30/19 20:21; Admin Dose 1 MG; Start 03/29/19 at 15:00 Atorvastatin Calcium (Lipitor) 10 mg DAILY@21 PO Last administered on 04/01/19 20:38; Admin Dose 10 MG; Start 03/29/19 at 21:00 Multivitamins/ Minerals (Theragran-M) 1 tab DAILY PO Last administered on 04/02/19 10:52; Admin Dose 1 TAB; Start 03/30/19 at 09:00 Eye Lubricant (Artificial Tears Oph) 1 drop Q12H PRN BOTH EYES DRY EYES; Start 03/29/19 at 18:30 Ferrous Sulfate (Feosol Liquid Cup) 300 mg BID GTB Last administered on 04/02/19 10:52; Admin Dose 300 MG; Start 03/29/19 at 21:00 Diltiazem HCl (Cardizem Iv) 5 mg Q4 PRN IV HR >110; Start 03/30/19 at 10:30 Carvedilol (Coreg) 12.5 mg BID GTB Last administered on 04/02/19 10:51; Admin Dose 12.5 MG; Start 03/30/19 at 21:00 Lisinopril (Zestril) 5 mg DAILY PO Last administered on 04/02/19 10:51; Admin Dose 5 MG; Start 03/31/19 at 09:00 Amiodarone HCl (Cordarone) 400 mg BID PO Last administered on 04/02/19 10:51; Admin Dose 400 MG; Start 03/31/19 at 10:30 Pantoprazole (Protonix Tab) 40 mg DAILY@06 PO Last administered on 7/3/19at 05:11; Admin Dose 40 MG; Start 03/31/19 at 12:00 Furosemide (Lasix) 40 mg DAILY NGT Last administered on 04/02/19at 10:52; Admin Dose 40 MG; Start 04/02/19 at 09:00 Ceftriaxone Sodium 50 ml @ 100 mls/hr Q24H IVPB Last administered on 04/02/19at 12:38; Admin Dose 100 MLS/HR; Start 04/01/19 at 12:00 Assessment/Plan Hospital Course (Demo Recall) IMPRESSION: 1. Ventilator-dependent respiratory failure with encephalopathy. 2. Subdural hematoma status post evacuation. 3. Urinary tract infection with recent extended spectrum beta lactamase. 4. Atrial fibrillation with rapid ventricular rate. 5. Dysphagia with G-tube. 6. Right pleural status post thoracentesis PLAN: 1. Continue mechanical ventilation. 2. Tube feeding as tolerated. 3. Antibiotics per infectious diseases pending cultures. 4. Rate control per cardiology. Currently on amiodarone. 5. Tube feeding as tolerated. 6. Deep venous thrombosis and GI prophylaxis. Follow MICHAEL Barksdale MD, [facility] Apr 02, 2019 17:29
[2019-04-02] MEDS: MELATONIN 5 MG TABLET GTB SCH (20:47)
[2019-04-02] MEDS: ATORVASTATIN 10 MG TAB PO SCH (20:47)
[2019-04-02] MEDS: DOCUSATE SODIUM 10 MG/ML (10ML CUP) GTB SCH (20:47)
[2019-04-03] VITALS (19 sets, daily range): BP systolic 107–137; BP diastolic 56–79; PULSE 55–86; RESP 14–20
[2019-04-03] MEDS: IPRATROPIUM (HFA) 12.9 GM INHALER INH SCH ×6 (01:19→21:13)
[2019-04-03] MEDS: LEVETIRACETAM (100 MG/ML) 5ML CUP GTB SCH ×2 (03:27→14:16)
[2019-04-03] MEDS: PANTOPRAZOLE (EC) 40 MG TAB PO SCH (05:51)
[2019-04-03] MEDS: LEVOTHYROXINE 100 MCG TAB GTB SCH (06:04)
[2019-04-03] MEDS: MAGNESIUM HYDROXIDE 30ML CUP GTB SCH (09:06)
[2019-04-03] MEDS: clonAZEPAM 0.5 MG TAB GTB SCH ×2 (09:06→22:30)
[2019-04-03] MEDS: FERROUS SULFATE 60 MG/ML 5ML CUP GTB SCH ×2 (09:06→22:29)
[2019-04-03] MEDS: MULTIVITAMINS/MINERALS TAB PO SCH (09:07)
[2019-04-03] MEDS: ASCORBIC ACID 500 MG TAB GTB SCH ×2 (09:07→22:32)
[2019-04-03] MEDS: AMIODARONE 200 MG TAB PO SCH ×2 (09:07→22:30)
[2019-04-03] MEDS: APIXABAN 5 MG TABLET GTB SCH (09:07)
[2019-04-03] MEDS: FUROSEMIDE 40 MG TAB NGT SCH (09:07)
[2019-04-03] MEDS: LISINOPRIL 5 MG TAB PO SCH (09:10)
--- NOTE | 2019-04-03 10:10 | CONS ---
Assessment/Plan Assessment/Plan Hospital Course (Demo Recall) Paroxysmal atrial fibrillation with RVR: On an odd dose of Eliquis 2.5mg daily but with h/o SDH and likely no clinical effect from recurrent stroke, will assume someone has addressed this dose as outpt. Presented in RVR, now back in sinus after amiodarone drip Acute on ?chronic systolic heart failure: Decompensated on exam and by CXR on admission. Also with low albumin which is contributing. Resolved Cardiomyopathy: EF 25-30%. ?etiology. Not a candidate for workup vegetative state/encephalopathy due to prior CVA and SDG SDH 2016 s/p evacuation Acute on chronic VDRF/trached: s/p thora 04/02 HTN seizures -amiodarone 400mg BID x 1 week, then 04/07 switch to 200mg BID x 1 week, then 200mg daily chronically -lasix 40mg PO daily -coreg 12.5mg BID -lisinopril 5mg -continue Eliquis Consultation Date/Type/Reason Admit Date/Time Mar 29, 2019 at 13:25 Initial Consult Date 03/30/19 Type of Consult Cardiology Requesting Provider: ROMEO DURAND Date/Time of Note DATE: 04/03/19 TIME: 10:10 24 HR Interval Summary Free Text/Dictation Remains in sinus Exam/Review of Systems Vital Signs Vitals Vital Signs Date Temp Pulse Resp B/P (MAP) Pulse Ox O2 O2 Flow FiO2 Time Delivery Rate 04/03/19 97.7 55 17 137/72 100 Trach 07:30 (93) Collar 04/03/19 30 05:26 Intake and Output 04/02/19 04/02/19 04/03/19 1515:00 23:00 07:00 IntakeIntake Total 1320 ml OutputOutput Total 300 ml BalanceBalance 1020 ml Exam Constitutional: No oriented Neck: No jvd Respiratory: diminished breath sounds; No clear to auscultation Cardiovascular: regular rate and rhythm; No edema Gastrointestinal: soft; No distended Neurological: No nl mental status, No nl speech Labs Result Diagram: 04/02/19 0547 04/02/19 0547 Medications Medications Current Medications Acetaminophen (Tylenol Tab) 650 mg Q4H PRN GTB MILD PAIN LEVEL 1-3 Last administered on 04/02/19at 10:57; Admin Dose 650 MG; Start 03/29/19 at 14:00 Apixaban (Eliquis) 2.5 mg DAILY GTB Last administered on 04/03/19 09:07; Admin Dose 2.5 MG; Start 03/30/19 at 09:00 Ascorbic Acid (Vitamin C) 500 mg BID GTB Last administered on 04/03/19 09:07; Admin Dose 500 MG; Start 03/29/19 at 21:00 Clonazepam (Klonopin) 0.5 mg BID GTB Last administered on 04/03/19 09:06; Admin Dose 0.5 MG; Start 03/29/19 at 21:00 Levetiracetam (Keppra Liquid) 1,500 mg Q12H GTB Last administered on 04/03/19 03:27; Admin Dose 1,500 MG; Start 03/29/19 at 14:00 Levothyroxine Sodium (Synthroid) 100 mcg BEFORE BREAKFAST GTB Last administered on 04/03/19 06:04; Admin Dose 100 MCG; Start 03/30/19 at 07:00 Magnesium Hydroxide (Milk Of Mag) 30 ml DAILY GTB Last administered on 04/03/19 09:06; Admin Dose 30 ML; Start 03/30/19 at 09:00 Melatonin (Melatonin) 5 mg HS GTB Last administered on 04/02/19 20:47; Admin Dose 5 MG; Start 03/29/19 at 21:00 Docusate Sodium (Colace Liquid Cup) 100 mg QHS GTB Last administered on 04/02/19 at 20:47; Admin Dose 100 MG; Start 03/29/19 at 21:00 Ondansetron HCl (Zofran Inj) 4 mg Q6H PRN IV NAUSEA AND/OR VOMITING; Start 03/29/19 at 15:00 Ipratropium [place] (Atrovent Hfa) 2 puff Q4H RESP THERAPY INH Last administered on 04/03/19 10:07; Admin Dose 2 PUFF; Start 03/29/19 at 17:00 Ipratropium [place] (Atrovent Hfa) 2 puff Q2H RESP THERAPY PRN INH SHORTNESS OF BREATH; Start 03/29/19 at 15:00 Lorazepam (Ativan) 1 mg Q2H PRN IV ANXIETY Last administered on 03/30/19 20:21; Admin Dose 1 MG; Start 03/29/19 at 15:00 Atorvastatin Calcium (Lipitor) 10 mg DAILY@21 PO Last administered on 04/02/19 20:47; Admin Dose 10 MG; Start 03/29/19 at 21:00 Multivitamins/ Minerals (Theragran-M) 1 tab DAILY PO Last administered on 04/03/19 09:07; Admin Dose 1 TAB; Start 03/30/19 at 09:00 Eye Lubricant (Artificial Tears Oph) 1 drop Q12H PRN BOTH EYES DRY EYES; Start 03/29/19 at 18:30 Ferrous Sulfate (Feosol Liquid Cup) 300 mg BID GTB Last administered on 04/03/19 09:06; Admin Dose 300 MG; Start 03/29/19 at 21:00 Diltiazem HCl (Cardizem Iv) 5 mg Q4 PRN IV HR >110; Start 03/30/19 at 10:30 Carvedilol (Coreg) 12.5 mg BID GTB Last administered on 04/03/19 09:14; Admin Dose 12.5 MG; Start 03/30/19 at 21:00 Lisinopril (Zestril) 5 mg DAILY PO Last administered on 04/03/19 09:10; Admin Dose 5 MG; Start 03/31/19 at 09:00 Amiodarone HCl (Cordarone) 400 mg BID PO Last administered on 04/03/19 09:07; Admin Dose 400 MG; Start 03/31/19 at 10:30 Pantoprazole (Protonix Tab) 40 mg DAILY@06 PO Last administered on 04/03/19 05:51; Admin Dose 40 MG; Start 03/31/19 at 12:00 Furosemide (Lasix) 40 mg DAILY NGT Last administered on 04/03/19 09:07; Admin Dose 40 MG; Start 04/02/19 at 09:00 Ceftriaxone Sodium 50 ml @ 100 mls/hr Q24H IVPB Last administered on 04/02/19 12:38; Admin Dose 100 MLS/HR; Start 04/01/19 at 12:00 MIREYA ZAMARRIPA Apr 03, 2019 10:10
--- NOTE | 2019-04-03 10:22 | PN ---
Date/Time of Note Date/Time of Note DATE: 04/02/19 TIME: 10:20 Objective Vitals Vital Signs Date Temp Pulse Resp B/P (MAP) Pulse Ox O2 O2 Flow FiO2 Time Delivery Rate 04/03/19 97.7 55 17 137/72 100 Trach 07:30 (93) Collar 04/03/19 30 05:26 Intake and Output 04/02/19 04/02/19 04/03/19 1515:00 23:00 07:00 IntakeIntake Total 1320 ml OutputOutput Total 300 ml BalanceBalance 1020 ml Results Result Diagram: 04/02/1947 04/02/19546 Medications Medications Current Medications Acetaminophen (Tylenol Tab) 650 mg Q4H PRN GTB MILD PAIN LEVEL 1-3 Last administered on 04/02/19 10:57; Admin Dose 650 MG; Start 03/29/19 at 14:00 Apixaban (Eliquis) 2.5 mg DAILY GTB Last administered on 04/03/19 09:07; Admin Dose 2.5 MG; Start 03/30/19 at 09:00 Ascorbic Acid (Vitamin C) 500 mg BID GTB Last administered on 04/03/19 09:07; Admin Dose 500 MG; Start 03/29/19 at 21:00 Clonazepam (Klonopin) 0.5 mg BID GTB Last administered on 04/03/19 09:06; Admin Dose 0.5 MG; Start 03/29/19 at 21:00 Levetiracetam (Keppra Liquid) 1,500 mg Q12H GTB Last administered on 04/03/19 03:27; Admin Dose 1,500 MG; Start 03/29/19 at 14:00 Levothyroxine Sodium (Synthroid) 100 mcg BEFORE BREAKFAST GTB Last administered on 04/03/19 06:04; Admin Dose 100 MCG; Start 03/30/19 at 07:00 Magnesium Hydroxide (Milk Of Mag) 30 ml DAILY GTB Last administered on 04/03/19 09:06; Admin Dose 30 ML; Start 03/30/19 at 09:00 Melatonin (Melatonin) 5 mg HS GTB Last administered on 04/02/19 20:47; Admin Dose 5 MG; Start 03/29/19 at 21:00 Docusate Sodium (Colace Liquid Cup) 100 mg QHS GTB Last administered on 04/02/19 20:47; Admin Dose 100 MG; Start 03/29/19 at 21:00 Ondansetron HCl (Zofran Inj) 4 mg Q6H PRN IV NAUSEA AND/OR VOMITING; Start 03/29/19 at 15:00 Ipratropium [place] (Atrovent Hfa) 2 puff Q4H RESP THERAPY INH Last admini stered on 04/03/19 10:07; Admin Dose 2 PUFF; Start 03/29/19 at 17:00 Ipratropium [place] (Atrovent Hfa) 2 puff Q2H RESP THERAPY PRN INH SHORTNESS OF BREATH; Start 03/29/19 at 15:00 Lorazepam (Ativan) 1 mg Q2H PRN IV ANXIETY Last administered on 03/30/19 20:21; Admin Dose 1 MG; Start 03/29/19 at 15:00 Atorvastatin Calcium (Lipitor) 10 mg DAILY@21 PO Last administered on 04/02/19 20:47; Admin Dose 10 MG; Start 03/29/19 at 21:00 Multivitamins/ Minerals (Theragran-M) 1 tab DAILY PO Last administered on 04/03/19 09:07; Admin Dose 1 TAB; Start 03/30/19 at 09:00 Eye Lubricant (Artificial Tears Oph) 1 drop Q12H PRN BOTH EYES DRY EYES; Start 03/29/19 at 18:30 Ferrous Sulfate (Feosol Liquid Cup) 300 mg BID GTB Last administered on 04/03/19 09:06; Admin Dose 300 MG; Start 03/29/19 at 21:00 Diltiazem HCl (Cardizem Iv) 5 mg Q4 PRN IV HR >110; Start 03/30/19 at 10:30 Carvedilol (Coreg) 12.5 mg BID GTB Last administered on 04/03/19 09:14; Admin Dose 12.5 MG; Start 03/30/19 at 21:00 Lisinopril (Zestril) 5 mg DAILY PO Last administered on 04/03/19 09:10; Admin Dose 5 MG; Start 03/31/19 at 09:00 Amiodarone HCl (Cordarone) 400 mg BID PO Last administered on 04/03/19 09:07; Admin Dose 400 MG; Start 03/31/19 at 10:30 Pantoprazole (Protonix Tab) 40 mg DAILY@06 PO Last administered on 04/03/19at 05:51; Admin Dose 40 MG; Start 03/31/19 at 12:00 Furosemide (Lasix) 40 mg DAILY NGT Last administered on 04/03/19 09:07; Admin Dose 40 MG; Start 04/02/19 at 09:00 Ceftriaxone Sodium 50 ml @ 100 mls/hr Q24H IVPB Last administered on 04/02/19at 12:38; Admin Dose 100 MLS/HR; Start 04/01/19 at 12:00 VTE Prophylaxis Risk score (from Ns)>0 risk: 8 SCD applied (from Ns): Yes Lines/Catheters IV Catheter Type: Adams in Place: No Assessment/Plan Hospital Course this note is intended for Subjective No acute changes, Objective Physical exam General: Patient is laying in bed trach to vent Mentation: Patient is occasionally arousable however not oriented, Head: Normocephalic atraumatic Eyes: EOMI, pupils reactive to light Neck: Supple, nontender, midline Respiratory: Clear to auscultation bilaterally Cardiovascular: regular rate, no obvious murmurs Gastrointestinal: non-tender to palpation, bowel sounds heard. Neurological: Cannot properly assess due to mentation Skin: No new skin lesions Assessment/Plan 1. Acute on chronic hypoxic respiratory failure- stable - most likely secondary to pulmonary congestion - repeat CXR as needed - Continue on mechanical ventilation, [facility] - Pulmonology consulted for vent management - Nebs on board Questionable tics -Possible breakthrough seizure -Medications per neurology -Neurology work-up pending 2. Acute on chronic diastolic heart failure - Continue on Lasix and monitor I/O and daily weights - BNP elevated - CXR noted for pulm congestion - Cardiology consulted 3. Afib with RVR, resolving -Patient's IV medications will now be switched over to oral medications per reports analysis manager - Continue on Eliquis at the current unique dose due to history of subdural hemorrhage 4. UTI - ID consultation appreciated - Urine cx showing gram neg rods - IV antibiotics Chronic urinary retention -Urology consulted -Not doing well without Adams, continue monitoring. 5. 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 Diabetes Mellitus - check A1c 7. hypothyroidism - TSH within normal limits - continue levothyroxine 8. HTN 9. GERD - PPI 10. h/o CVA with L residual weakness 11. Seizures - continue keppra -Ativan as needed -We will consult neurology for breakthrough seizures 12. h/o breast CA s/p mastectomy -Spoke with patient's daughters, patient is near due for screening, however due to the fickle nature of patient's renal function/urinary retention and the fact that she is acutely hospitalized I recommended CT of the abdomen pelvis and chest to be done outpatient as it will need to be done with contrast to rule out mass. 13. Disposition -Continue current management, Way evaluation. ROMEO DURAND Apr 03, 2019 10:22
--- NOTE | 2019-04-03 12:04 | CONS ---
Assessment/Plan Assessment/Plan Hospital Course (Demo Recall) ID PROGRESS NOTE CURRENT ABX: DAY #6 =>CEFTRIAXONE 24H INTERVAL SUMMARY * 64 yo F w/hx of craniotomy, opens eyes, does not follow commands, noncommunicative w/ Trach/PEG * Afebrile, VSS, NAD, looks comfortable DIAGNOSTIC IMAGING * 04/02/19 CXR: 1. Persistent small to moderate size bilateral pleural effusions with associated atelectasis. 2. Persistent cardiomegaly with mild central vascular congestion. * 04/01/19 CT BRAIN: IMPRESSION:1. No acute intracranial hemorrhage or extra- axial fluid collection.2. Left hemisphere craniotomy.3. Severe ventriculomegaly which is greater than sulcal prominence suggesting central greater than peripheral volume loss. A component of normal pressure hydrocephalus is not excluded. 4. Mild to moderate chronic microvascular ischemic changes.5. Chronic left occipital lobe and left parietal infarctions. 6. Previous noted left hemispheric subdural collection and dural hyperdensity has resolved. MICRO * 07/ * 04/02/19 C.DIFF (-) * 04/01/19 THORA: GRAM STAIN Final POLYMORPH. LEUKOCYTE NONE SEEN . NO ORGANISM SEEN BODY FLUID CULTURE Preliminary NO GROWTH AFTER 1 DAY * 03/29/19 BCX (-) * 03/29/19 URINE CULTURE Final Organism 1 ESCHERICHIA COLI COLONY COUNT >100,000 CFU/ml Organism 2 PROTEUS MIRABILIS COLONY COUNT >100,000 CFU/ml E COLI P. MIRAB M.I.C. RX M.I.C. RX --------- --- --------- --- AMPICILLIN >=32 R >=32 R CEFAZOLIN R CEFOTAXIME S S CIPROFLOXACIN <=0.25 S >=4 R GENTAMICIN <=1 S <=1 S LEVOFLOXACIN <=0.12 S >=8 R NITROFURANTOIN <=16 S 128 R TOBRAMYCIN <=1 S <=1 S TRIMETHOPRIM/SULFAMETHOXAZOLE <=20 S >=320 R PHYSICAL EXAMINATION: GENERAL: VSS, NAD HEENT: AT, NC, NECK: Supple, CHEST: Rise symmetrical HEART: Pulse RRR ABDOMEN: EXTREMITIES: Warm, dry SKIN: No rash, no diaphoresis ID ASSESSMENT 64 yo F admit with: 1. Acute on chronic hypoxemic respiratory failure secondary to pulmonary congestion 2. Urinary tract infection, gram-negative rods 3. Atrial fibrillation s/p rapid ventricular response 4. Chronic encephalopathy with a history of subdural hematoma and left fish- craniotomy, ventriculomegaly, hx of infarcts 5. Diabetes 6. Hypertension ABX ALLERGIES: PCN/VANCO IV INVASIVES: PIV CURRENT ABX: ABX DAY #6 =>CEFTRIAXONE ID RECOMMENDATIONS/PLAN: 1. Continue current ABX -- Anticipate total 7 days / Consultation Date/Type/Reason Admit Date/Time Mar 29, 2019 at 13:25 Initial Consult Date 03/31/19 Requesting Provider: ROMEO DURAND Date/Time of Note DATE: 04/03/19 TIME: 12:03 Exam/Review of Systems Exam Vitals Vital Signs Date Temp Pulse Resp B/P (MAP) Pulse Ox O2 O2 Flow FiO2 Time Delivery Rate 04/03/19 61 16 99 30 11:16 04/03/19 97.9 107/56 Trach 11:09 (73) Collar Intake and Output 04/02/19 04/02/19 04/03/19 1414:59 22:59 06:59 IntakeIntake Total 1320 ml OutputOutput Total 300 ml BalanceBalance 1020 ml Results Result Diagram: 04/02/19 0547 04/02/19 0547 Medications Medication Current Medications Acetaminophen (Tylenol Tab) 650 mg Q4H PRN GTB MILD PAIN LEVEL 1-3 Last administered on 04/02/19at 10:57; Admin Dose 650 MG; Start 03/29/19 at 14:00 Apixaban (Eliquis) 2.5 mg DAILY GTB Last administered on 04/03/19at 09:07; Admin Dose 2.5 MG; Start 03/30/19 at 09:00 Ascorbic Acid (Vitamin C) 500 mg BID GTB Last administered on 04/03/19at 09:07; Admin Dose 500 MG; Start 03/29/19 at 21:00 Clonazepam (Klonopin) 0.5 mg BID GTB Last administered on 04/03/19 09:06; Admin Dose 0.5 MG; Start 03/29/19 at 21:00 Levetiracetam (Keppra Liquid) 1,500 mg Q12H GTB Last administered on 04/03/19 03:27; Admin Dose 1,500 MG; Start 03/29/19 at 14:00 Levothyroxine Sodium (Synthroid) 100 mcg BEFORE BREAKFAST GTB Last administered on 04/03/19 06:04; Admin Dose 100 MCG; Start 03/30/19 at 07:00 Magnesium Hydroxide (Milk Of Mag) 30 ml DAILY GTB Last administered on 04/03/19 09:06; Admin Dose 30 ML; Start 03/30/19 at 09:00 Melatonin (Melatonin) 5 mg HS GTB Last administered on 04/02/19 20:47; Admin Dose 5 MG; Start 03/29/19 at 21:00 Docusate Sodium (Colace Liquid Cup) 100 mg QHS GTB Last administered on 04/02/19 20:47; Admin Dose 100 MG; Start 03/29/19 at 21:00 Ondansetron HCl (Zofran Inj) 4 mg Q6H PRN IV NAUSEA AND/OR VOMITING; Start 03/29/19 at 15:00 Ipratropium [place] (Atrovent Hfa) 2 puff Q4H RESP THERAPY INH Last administered on 04/03/19 10:07; Admin Dose 2 PUFF; Start 03/29/19 at 17:00 Ipratropium [place] (Atrovent Hfa) 2 puff Q2H RESP THERAPY PRN INH SHORTNESS OF BREATH; Start 03/29/19 at 15:00 Lorazepam (Ativan) 1 mg Q2H PRN IV ANXIETY Last administered on 03/30/19 20:21; Admin Dose 1 MG; Start 03/29/19 at 15:00 Atorvastatin Calcium (Lipitor) 10 mg DAILY@21 PO Last administered on 04/02/19 20:47; Admin Dose 10 MG; Start 03/29/19 at 21:00 Multivitamins/ Minerals (Theragran-M) 1 tab DAILY PO Last administered on 04/03/19 09:07; Admin Dose 1 TAB; Start 03/30/19 at 09:00 Eye Lubricant (Artificial Tears Oph) 1 drop Q12H PRN BOTH EYES DRY EYES; Start 03/29/19 at 18:30 Ferrous Sulfate (Feosol Liquid Cup) 300 mg BID GTB Last administered on 04/03/19 09:06; Admin Dose 300 MG; Start 03/29/19 at 21:00 Diltiazem HCl (Cardizem Iv) 5 mg Q4 PRN IV HR >110; Start 03/30/19 at 10:30 Carvedilol (Coreg) 12.5 mg BID GTB Last administered on 04/03/19 09:14; Admin Dose 12.5 MG; Start 03/30/19 at 21:00 Lisinopril (Zestril) 5 mg DAILY PO Last administered on 04/03/19 09:10; Admin Dose 5 MG; Start 03/31/19 at 09:00 Amiodarone HCl (Cordarone) 400 mg BID PO Last administered on 04/03/19 09:07; Admin Dose 400 MG; Start 03/31/19 at 10:30 Pantoprazole (Protonix Tab) 40 mg DAILY@06 PO Last administered on 04/03/19 05:51; Admin Dose 40 MG; Start 03/31/19 at 12:00 Furosemide (Lasix) 40 mg DAILY NGT Last administered on 04/03/19 09:07; Admin D ose 40 MG; Start 04/02/19 at 09:00 Ceftriaxone Sodium 50 ml @ 100 mls/hr Q24H IVPB Last administered on 04/02/19 12:38; Admin Dose 100 MLS/HR; Start 04/01/19 at 12:00 MIGUEL ANGEL HUERTAS NP Apr 03, 2019 12:04
[2019-04-03] MEDS: CEFTRIAXONE 1 GM/50 ML (PMX) 50 ML IVPB SCH (13:01)
--- NOTE | 2019-04-03 14:33 | PN ---
Date/Time of Note Date/Time of Note DATE: 04/03/19 TIME: 14:32 Objective Vitals Vital Signs Date Temp Pulse Resp B/P (MAP) Pulse Ox O2 O2 Flow FiO2 Time Delivery Rate 04/03/19 30 13:29 04/03/19 61 16 99 11:16 04/03/19 97.9 107/56 Trach 11:09 (73) Collar Intake and Output 04/02/19 04/02/19 04/03/19 1414:59 22:59 06:59 IntakeIntake Total 1320 ml OutputOutput Total 300 ml BalanceBalance 1020 ml Results Result Diagram: 04/02/19 0547 04/02/19 0547 Medications Medications Current Medications Acetaminophen (Tylenol Tab) 650 mg Q4H PRN GTB MILD PAIN LEVEL 1-3 Last administered on 04/02/19 10:57; Admin Dose 650 MG; Start 03/29/19 at 14:00 Apixaban (Eliquis) 2.5 mg DAILY GTB Last administered on 04/03/19 09:07; Admin Dose 2.5 MG; Start 03/30/19 at 09:00 Ascorbic Acid (Vitamin C) 500 mg BID GTB Last administered on 04/03/19 09:07; Admin Dose 500 MG; Start 03/29/19 at 21:00 Clonazepam (Klonopin) 0.5 mg BID GTB Last administered on 04/03/19 09:06; Admin Dose 0.5 MG; Start 03/29/19 at 21:00 Levetiracetam (Keppra Liquid) 1,500 mg Q12H GTB Last administered on 04/03/19 14:16; Admin Dose 1,500 MG; Start 03/29/19 at 14:00 Levothyroxine Sodium (Synthroid) 100 mcg BEFORE BREAKFAST GTB Last administered on 04/03/19 06:04; Admin Dose 100 MCG; Start 03/30/19 at 07:00 Magnesium Hydroxide (Milk Of Mag) 30 ml DAILY GTB Last administered on 04/03/19 09:06; Admin Dose 30 ML; Start 03/30/19 at 09:00 Melatonin (Melatonin) 5 mg HS GTB Last administered on 04/02/19 20:47; Admin Dose 5 MG; Start 03/29/19 at 21:00 Docusate Sodium (Colace Liquid Cup) 100 mg QHS GTB Last administered on 04/02/19 t 20:47; Admin Dose 100 MG; Start 03/29/19 at 21:00 Ondansetron HCl (Zofran Inj) 4 mg Q6H PRN IV NAUSEA AND/OR VOMITING; Start 03/29/19 at 15:00 Ipratropium [place] (Atrovent Hfa) 2 puff Q4H RESP THERAPY INH Last administered on 04/03/19 13:40; Admin Dose 2 PUFF; Start 03/29/19 at 17:00 Ipratropium [place] (Atrovent Hfa) 2 puff Q2H RESP THERAPY PRN INH SHORTNESS OF BREATH; Start 03/29/19 at 15:00 Lorazepam (Ativan) 1 mg Q2H PRN IV ANXIETY Last administered on 03/30/19 20:21; Admin Dose 1 MG; Start 03/29/19 at 15:00 Atorvastatin Calcium (Lipitor) 10 mg DAILY@21 PO Last administered on 04/02/19 20:47; Admin Dose 10 MG; Start 03/29/19 at 21:00 Multivitamins/ Minerals (Theragran-M) 1 tab DAILY PO Last administered on 04/03/19 09:07; Admin Dose 1 TAB; Start 03/30/19 at 09:00 Eye Lubricant (Artificial Tears Oph) 1 drop Q12H PRN BOTH EYES DRY EYES; Start 03/29/19 at 18:30 Ferrous Sulfate (Feosol Liquid Cup) 300 mg BID GTB Last administered on 04/03/19 09:06; Admin Dose 300 MG; Start 03/29/19 at 21:00 Diltiazem HCl (Cardizem Iv) 5 mg Q4 PRN IV HR >110; Start 03/30/19 at 10:30 Carvedilol (Coreg) 12.5 mg BID GTB Last administered on 04/03/19 09:14; Admin Dose 12.5 MG; Start 03/30/19 at 21:00 Lisinopril (Zestril) 5 mg DAILY PO Last administered on 04/03/19 09:10; Admin Dose 5 MG; Start 03/31/19 at 09:00 Amiodarone HCl (Cordarone) 400 mg BID PO Last administered on 04/03/19 09:07; Admin Dose 400 MG; Start 03/31/19 at 10:30 Pantoprazole (Protonix Tab) 40 mg DAILY@06 PO Last administered on 04/03/19 05:51; Admin Dose 40 MG; Start 03/31/19 at 12:00 Furosemide (Lasix) 40 mg DAILY NGT Last administered on 04/03/19 09:07; Admin Dose 40 MG; Start 04/02/19 at 09:00 Ceftriaxone Sodium 50 ml @ 100 mls/hr Q24H IVPB Last administered on 04/03/19 13:01; Admin Dose 100 MLS/HR; Start 04/01/19 at 12:00 VTE Prophylaxis Risk score (from Ns)>0 risk: 6 SCD applied (from Ns): Yes Lines/Catheters IV Catheter Type: Lakhani in Place: No Assessment/Plan Hospital Course Subjective No acute changes, patient stable Objective Physical exam General: Patient is laying in bed trach to vent Mentation: Patient is occasionally arousable however not oriented, Head: Normocephalic atraumatic Eyes: EOMI, pupils reactive to light Neck: Supple, nontender, midline Respiratory: Clear to auscultation bilaterally Cardiovascular: regular rate, no obvious murmurs Gastrointestinal: non-tender to palpation, bowel sounds heard. Neurological: Cannot properly assess due to mentation Skin: No new skin lesions Assessment/Plan 1. Acute on chronic hypoxic respiratory failure- stable - most likely secondary to pulmonary congestion - repeat CXR as needed - Continue on mechanical ventilation, patient was on [facility]V mode at [facility] prior to this admission - Pulmonology consulted for vent management - Nebs on board Questionable tics -Possible breakthrough seizure, although unlikely, according to patient's family patient has been suffering this for many years -Medications per neurology -Neurology recommendations appreciated Acute on chronic diastolic heart failure - Continue on Lasix and monitor I/O and daily weights - BNP elevated - CXR noted for pulm congestion - Cardiology consulted Afib with RVR, resolving -Patient's IV medications will now be switched over to oral medications per high school science tutor - Continue on Eliquis at the current unique dose due to history of subdural hemorrhage UTI - ID consultation appreciated - Urine cx showing gram neg rods - IV antibiotics Chronic urinary retention, resolved -Urology consulted, lakhani removed -doing well without Lakhani, continue monitoring. 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 s/p evacuation -Baseline is able to open eyes, no purposeful movement Diabetes Mellitus - check A1c hypothyroidism - TSH within normal limits - continue levothyroxine HTN GERD - PPI h/o CVA with L residual weakness Seizures - continue keppra -Ativan as needed -We will consult neurology for breakthrough seizures h/o breast CA s/p mastectomy -Spoke with patient's daughters, patient is near due for screening, however due to the fickle nature of patient's renal function/urinary retention and the fact that she is acutely hospitalized I recommended CT of the abdomen pelvis and chest to be done outpatient as it will need to be done with contrast to rule out mass. Disposition -Continue current management, Way evaluation. ROMEO DURAND Apr 03, 2019 14:33
--- NOTE | 2019-04-03 15:23 | CONS ---
Consult Date/Type/Reason Admit Date/Time Mar 29, 2019 at 13:25 Initial Consult Date 03/31/19 Type of Consultation: Pulm Requesting Provider: ROMEO DURAND Date/Time of Note DATE: 04/03/19 TIME: 15:20 Subjective On mechanical ventilation. s/p right thoracentesis x 1 L Objective Vitals Vital Signs Date Temp Pulse Resp B/P (MAP) Pulse Ox O2 O2 Flow FiO2 Time Delivery Rate 04/03/19 98.3 57 20 135/76 100 Trach 15:04 (95) Collar 04/03/19 30 13:29 Intake and Output 04/02/19 04/02/19 04/03/19 1515:00 23:00 07:00 IntakeIntake Total 1320 ml OutputOutput Total 300 ml BalanceBalance 1020 ml Exam NECK: Supple. No JVD or lymphadenopathy. CARDIAC: Sounds 1 and 2, no added sounds or murmurs. CHEST: Diminished air entry bilaterally. ABDOMEN: Soft, nontender. No guarding or rebound. EXTREMITIES: No cyanosis, clubbing, edema. NEUROLOGIC: Unable to assess. Results/Medications Result Diagram: 04/02/19 0547 04/02/19 0547 Home Meds Reported Medications Clonazepam* (Clonazepam*) 0.5 Mg Tablet, 0.5 MG GTB BID, TAB 03/29/19 Potassium Chloride* (Potassium Chloride*) 20 Meq Tablet.er, 20 MEQ GTB DAILY, TAB.SA 03/29/19 Melatonin (Melatonin) 5 Mg Tablet, 5 MG GTB HS, TAB 03/29/19 Lovastatin* (Lovastatin*) 10 Mg Tablet, 10 MG GTB HS, TAB 03/29/19 Levothyroxine Sodium* (Levothyroxine Sodium*) 100 Mcg Tablet, 100 MCG GTB BEFORE BREAKFAST, #30 TAB 03/29/19 Levetiracetam* (Keppra* (Ped)) 100 Mg/Ml Liq, 15 ML GTB Q12H for 30 Days, BOTTLE 03/29/19 Apixaban* (Eliquis*) 2.5 Mg Tablet, 2.5 MG GTB DAILY, TAB 03/29/19 Amlodipine Besylate* (Amlodipine Besylate*) 10 Mg Tablet, 10 MG GTB DAILY, #30 TAB HOLD FOR SBP<110 OR HR<60 03/29/19 Dextran 70/Hypromellose/Pf (ARTIFICIAL TEARS DROPS) 1 Each Droperette, 1 EACH OP Q12H 03/29/19 Acetaminophen* (Acetaminophen*) 500 MG Extra Strength Tablet, 1000 MG GTB Q4H PRN for PAIN LEVEL 4-610, TAB 03/29/19 Acetaminophen* (Tylenol*) 325 Mg Tablet, 650 MG GTB PRN PRN for TRACH TUBE CHANGE, TAB 03/29/19 Acetaminophen* (Tylenol*) 325 Mg Tablet, 650 MG GTB Q4H PRN for MILD PAIN LEVEL 1-3, TAB AND FOR FEVER 101 AND ABOVE 03/29/19 Bisacodyl (Dulcolax) 10 Mg Supp.rect, 10 MG RC DAILY, SUPP.RECT 03/29/19 Sodium Phosphate,[place]-Dibasic (Enema Ready To Use) 133 Ml Enema, 133 ML RC Q2D, ENEMA 03/29/19 Magnesium Hydroxide* (Milk Of Magnesia*) 400 Mg/5 Ml Oral.susp, 30 ML GTB DAILY, ML 03/29/19 Docusate Sodium* (Colace*) 100 Mg Capsule, 100 MG GTB QHS, #30 CAP 03/29/19 Multivit &Minerals/Ferrous Fum (MULTIVITAMIN LIQUID) 9 Mg/15 Ml Liquid, 5 ML GTB DAILY 03/29/19 Ascorbic Acid (Vitamin C) 500 Mg Tab, 500 MG GTB BID, TAB 03/29/19 Ferrous Sulfate* (Ferrous Sulfate*) 220 Mg/5 Ml Solution, 7.5 ML GTB BID, ML 03/29/19 Cran/Vitc/Mannose/Inulin/Brom (Uti-Stat Liquid) 3,875 Mg/30 Ml Liquid, 30 MG GTB DAILY 03/29/19 Cranberry Extract (Cranberry) 425 Mg Capsule, 425 MG GTB BID, CAP 03/29/19 Medications Current Medications Acetaminophen (Tylenol Tab) 650 mg Q4H PRN GTB MILD PAIN LEVEL 1-3 Last administered on 04/02/19at 10:57; Admin Dose 650 MG; Start 03/29/19 at 14:00 Apixaban (Eliquis) 2.5 mg DAILY GTB Last administered on 04/03/19at 09:07; Admin Dose 2.5 MG; Start 03/30/19 at 09:00 Ascorbic Acid (Vitamin C) 500 mg BID GTB Last administered on 04/03/19 09:07; Admin Dose 500 MG; Start 03/29/19 at 21:00 Clonazepam (Klonopin) 0.5 mg BID GTB Last administered on 04/03/19 09:06; Admin Dose 0.5 MG; Start 03/29/19 at 21:00 Levetiracetam (Keppra Liquid) 1,500 mg Q12H GTB Last administered on 04/03/19 14:16; Admin Dose 1,500 MG; Start 03/29/19 at 14:00 Levothyroxine Sodium (Synthroid) 100 mcg BEFORE BREAKFAST GTB Last administered on 04/03/19 06:04; Admin Dose 100 MCG; Start 03/30/19 at 07:00 Magnesium Hydroxide (Milk Of Mag) 30 ml DAILY GTB Last administered on 04/03/19 09:06; Admin Dose 30 ML; Start 03/30/19 at 09:00 Melatonin (Melatonin) 5 mg HS GTB Last administered on 04/02/19 20:47; Admin Dose 5 MG; Start 03/29/19 at 21:00 Docusate Sodium (Colace Liquid Cup) 100 mg QHS GTB Last administered on 04/02/19 20:47; Admin Dose 100 MG; Start 03/29/19 at 21:00 Ondansetron HCl (Zofran Inj) 4 mg Q6H PRN IV NAUSEA AND/OR VOMITING; Start 03/29/19 at 15:00 Ipratropium [place] (Atrovent Hfa) 2 puff Q4H RESP THERAPY INH Last administered on 04/03/19 13:40; Admin Dose 2 PUFF; Start 03/29/19 at 17:00 Ipratropium [place] (Atrovent Hfa) 2 puff Q2H RESP THERAPY PRN INH SHORTNESS OF BREATH; Start 03/29/19 at 15:00 Lorazepam (Ativan) 1 mg Q2H PRN IV ANXIETY Last administered on 03/30/19 20:21; Admin Dose 1 MG; Start 03/29/19 at 15:00 Atorvastatin Calcium (Lipitor) 10 mg DAILY@21 PO Last administered on 04/02/19 20:47; Admin Dose 10 MG; Start 03/29/19 at 21:00 Multivitamins/ Minerals (Theragran-M) 1 tab DAILY PO Last administered on 04/03/19 09:07; Admin Dose 1 TAB; Start 03/30/19 at 09:00 Eye Lubricant (Artificial Tears Oph) 1 drop Q12H PRN BOTH EYES DRY EYES; Start 03/29/19 at 18:30 Ferrous Sulfate (Feosol Liquid Cup) 300 mg BID GTB Last administered on 04/03/19 09:06; Admin Dose 300 MG; Start 03/29/19 at 21:00 Diltiazem HCl (Cardizem Iv) 5 mg Q4 PRN IV HR >110; Start 03/30/19 at 10:30 Carvedilol (Coreg) 12.5 mg BID GTB Last administered on 04/03/19 09:14; Admin Dose 12.5 MG; Start 03/30/19 at 21:00 Lisinopril (Zestril) 5 mg DAILY PO Last administered on 04/03/19 09:10; Admin Dose 5 MG; Start 03/31/19 at 09:00 Amiodarone HCl (Cordarone) 400 mg BID PO Last administered on 04/03/19 09:07; Admin Dose 400 MG; Start 03/31/19 at 10:30 Pantoprazole (Protonix Tab) 40 mg DAILY@06 PO Last administered on 04/03/19 05:51; Admin Dose 40 MG; Start 03/31/19 at 12:00 Furosemide (Lasix) 40 mg DAILY NGT Last administered on 04/03/19 09:07; Admin Dose 40 MG; Start 04/02/19 at 09:00 Ceftriaxone Sodium 50 ml @ 100 mls/hr Q24H IVPB Last administered on 04/03/19 13:01; Admin Dose 100 MLS/HR; Start 04/01/19 at 12:00 Assessment/Plan Assessment/Plan (Daily) IMP: 1. Ventilator-dependent respiratory failure with encephalopathy. 2. Subdural hematoma status post evacuation. 3. Urinary tract infection with recent extended spectrum beta lactamase. 4. Atrial fibrillation with rapid ventricular rate. 5. Dysphagia with G-tube. 6. Right lymphocytic predominant exudative pleural effusion status post thoracentesis- RECS: 1. Continue mechanical ventilation--wean as tolerated 2. Tube feeding as tolerated. 3. Antibiotics per infectious diseases pending cultures. 4. Follow-up pleural fluid cytology KARLA HILL MD Apr 03, 2019 15:23
[2019-04-03] MEDS: DOCUSATE SODIUM 10 MG/ML (10ML CUP) GTB SCH (22:29)
[2019-04-03] MEDS: ACETAMINOPHEN 325 MG TAB GTB PRN (22:31)
[2019-04-03] MEDS: ATORVASTATIN 10 MG TAB PO SCH (22:32)
[2019-04-03] MEDS: MELATONIN 5 MG TABLET GTB SCH (22:32)
[2019-04-04] VITALS (18 sets, daily range): BP systolic 99–146; BP diastolic 46–69; PULSE 52–58; RESP 14–20
[2019-04-04] MEDS: IPRATROPIUM (HFA) 12.9 GM INHALER INH SCH ×6 (01:57→21:36)
[2019-04-04] MEDS: LEVETIRACETAM (100 MG/ML) 5ML CUP GTB SCH ×2 (02:04→14:42)
[2019-04-04] MEDS: LEVOTHYROXINE 100 MCG TAB GTB SCH (05:46)
[2019-04-04] MEDS: PANTOPRAZOLE (EC) 40 MG TAB PO SCH (05:47)
[2019-04-04] MEDS: clonAZEPAM 0.5 MG TAB GTB SCH ×2 (08:59→21:26)
[2019-04-04] MEDS: AMIODARONE 200 MG TAB PO SCH ×2 (08:59→21:25)
[2019-04-04] MEDS: ASCORBIC ACID 500 MG TAB GTB SCH ×2 (08:59→21:27)
[2019-04-04] MEDS: FERROUS SULFATE 60 MG/ML 5ML CUP GTB SCH ×2 (08:59→21:24)
[2019-04-04] MEDS: APIXABAN 5 MG TABLET GTB SCH (09:00)
[2019-04-04] MEDS: MULTIVITAMINS/MINERALS TAB PO SCH (09:00)
[2019-04-04] MEDS: LISINOPRIL 5 MG TAB PO SCH (09:00)
[2019-04-04] MEDS: FUROSEMIDE 40 MG TAB NGT SCH (09:00)
[2019-04-04] MEDS: MAGNESIUM HYDROXIDE 30ML CUP GTB SCH (09:00)
--- NOTE | 2019-04-04 10:12 | CONS ---
Assessment/Plan Assessment/Plan Hospital Course (Demo Recall) Paroxysmal atrial fibrillation with RVR: On an odd dose of Eliquis 2.5mg daily but with h/o SDH and likely no clinical effect from recurrent stroke, will assume someone has addressed this dose as outpt. Presented in RVR, now back in sinus after amiodarone drip Acute on ?chronic systolic heart failure: Decompensated on exam and by CXR on admission. Also with low albumin which is contributing. Resolved Cardiomyopathy: EF 25-30%. ?etiology. 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 Decrease to 200mg daily on discharge -lasix 40mg PO daily -decrease to coreg 6.25mg BID -lisinopril 5mg -continue Eliquis Consultation Date/Type/Reason Admit Date/Time Mar 29, 2019 at 13:25 Initial Consult Date 03/30/19 Type of Consult Cardiology Requesting Provider: ROMEO DURAND Date/Time of Note DATE: 04/04/19 TIME: 10:11 24 HR Interval Summary Free Text/Dictation No events. Bradycardic at times Exam/Review of Systems Vital Signs Vitals Vital Signs Date Temp Pulse Resp B/P (MAP) Pulse Ox O2 O2 Flow FiO2 Time Delivery Rate 04/04/19 97.6 52 15 130/63 100 Trach 08:00 (85) Collar 04/04/19 30 05:14 Intake and Output 04/03/19 04/03/19 04/04/19 1414:59 22:59 06:59 IntakeIntake Total 1320 ml 1020 ml OutputOutput Total 600 ml 500 ml BalanceBalance 720 ml 520 ml Exam Constitutional: No alert, No oriented ENMT: other (s/p trach) Neck: No jvd (unable to assess) Respiratory: diminished breath sounds; No clear to auscultation Cardiovascular: regular rate and rhythm; No edema Gastrointestinal: soft; No distended Neurological: No nl mental status, No nl speech Labs Result Diagram: 04/04/19 0530 04/04/19 0530 Results 24hrs Laboratory Tests Test 04/04/19 05:30 White Blood Count 5.5 Red Blood Count 3.98 L Hemoglobin 11.4 L Hematocrit 33.6 L Mean Corpuscular Volume 84.4 Mean Corpuscular Hemoglobin 28.6 L Mean Corpuscular Hemoglobin Concent 33.9 Red Cell Distribution Width 14.0 Platelet Count 198 Mean Platelet Volume 12.1 H Immature Granulocytes % 0.500 H Neutrophils % 58.4 Lymphocytes % 18.0 Monocytes % 16.9 H Eosinophils % 5.3 Basophils % 0.9 Nucleated Red Blood Cells % 0.0 Immature Granulocytes # 0.030 Neutrophils # 3.2 Lymphocytes # 1.0 Monocytes # 0.9 Eosinophils # 0.3 Basophils # 0.1 Nucleated Red Blood Cells # 0.0 Sodium Level 143 Potassium Level 3.7 Chloride Level 109 Carbon Dioxide Level 25 Anion Gap 9 Blood Urea Nitrogen 13 Creatinine 0.36 L Est Glomerular Filtrat Rate mL/min > 60 Glucose Level 100 # Calcium Level 8.5 Phosphorus Level 3.8 Magnesium Level 2.4 Medications Medications Current Medications Acetaminophen (Tylenol Tab) 650 mg Q4H PRN GTB MILD PAIN LEVEL 1-3 Last administered on 04/03/19 22:31; Admin Dose 650 MG; Start 03/29/19 at 14:00 Apixaban (Eliquis) 2.5 mg DAILY GTB Last administered on 04/04/19 09:00; Admin Dose 2.5 MG; Start 03/30/19 at 09:00 Ascorbic Acid (Vitamin C) 500 mg BID GTB Last administered on 04/04/19 08:59; Admin Dose 500 MG; Start 03/29/19 at 21:00 Clonazepam (Klonopin) 0.5 mg BID GTB Last administered on 04/04/19 08:59; Admin Dose 0.5 MG; Start 03/29/19 at 21:00 Levetiracetam (Keppra Liquid) 1,500 mg Q12H GTB Last administered on 04/04/19 02:04; Admin Dose 1,500 MG; Start 03/29/19 at 14:00 Levothyroxine Sodium (Synthroid) 100 mcg BEFORE BREAKFAST GTB Last administered on 04/04/19 05:46; Admin Dose 100 MCG; Start 03/30/19 at 07:00 Magnesium Hydroxide (Milk Of Mag) 30 ml DAILY GTB Last administered on 04/03/19 09:06; Admin Dose 30 ML; Start 03/30/19 at 09:00 Melatonin (Melatonin) 5 mg HS GTB Last administered on 04/03/19 22:32; Admin Dose 5 MG; Start 03/29/19 at 21:00 Docusate Sodium (Colace Liquid Cup) 100 mg QHS GTB Last administered on 04/03/19 22:29; Admin Dose 100 MG; Start 03/29/19 at 21:00 Ondansetron HCl (Zofran Inj) 4 mg Q6H PRN IV NAUSEA AND/OR VOMITING; Start 03/29/19 at 15:00 Ipratropium [place] (Atrovent Hfa) 2 puff Q4H RESP THERAPY INH Last administered on 04/04/19 09:32; Admin Dose 2 PUFF; Start 03/29/19 at 17:00 Ipratropium [place] (Atrovent Hfa) 2 puff Q2H RESP THERAPY PRN INH SHORTNESS OF BREATH; Start 03/29/19 at 15:00 Lorazepam (Ativan) 1 mg Q2H PRN IV ANXIETY Last administered on 03/30/19 20:21; Admin Dose 1 MG; Start 03/29/19 at 15:00 Atorvastatin Calcium (Lipitor) 10 mg DAILY@21 PO Last administered on 04/03/19 22:32; Admin Dose 10 MG; Start 03/29/19 at 21:00 Multivitamins/ Minerals (Theragran-M) 1 tab DAILY PO Last administered on 04/04/19 09:00; Admin Dose 1 TAB; Start 03/30/19 at 09:00 Eye Lubricant (Artificial Tears Oph) 1 drop Q12H PRN BOTH EYES DRY EYES; Start 03/29/19 at 18:30 Ferrous Sulfate (Feosol Liquid Cup) 300 mg BID GTB Last administered on 04/04/19 08:59; Admin Dose 300 MG; Start 03/29/19 at 21:00 Diltiazem HCl (Cardizem Iv) 5 mg Q4 PRN IV HR >110; Start 03/30/19 at 10:30 Lisinopril (Zestril) 5 mg DAILY PO Last administered on 04/04/19 09:00; Admin Dose 5 MG; Start 03/31/19 at 09:00 Pantoprazole (Protonix Tab) 40 mg DAILY@06 PO Last administered on 04/04/19at 05:47; Admin Dose 40 MG; Start 03/31/19 at 12:00 Furosemide (Lasix) 40 mg DAILY NGT Last administered on 04/04/19at 09:00; Admin Dose 40 MG; Start 04/02/19 at 09:00 Ceftriaxone Sodium 50 ml @ 100 mls/hr Q24H IVPB Last administered on 04/03/19at 13:01; Admin Dose 100 MLS/HR; Start 04/01/19 at 12:00 Carvedilol (Coreg) 6.25 mg BID GTB ; Start 04/04/19 at 21:00 Amiodarone HCl (Cordarone) 200 mg BID PO ; Start 04/04/19 at 21:00 MIREYA ZAMARRIPA Apr 04, 2019 10:12
[2019-04-04] MEDS: CEFTRIAXONE 1 GM/50 ML (PMX) 50 ML IVPB SCH (12:06)
--- NOTE | 2019-04-04 13:30 | PN ---
Date/Time of Note Date/Time of Note DATE: 04/04/19 TIME: 13:29 Objective Vitals Vital Signs Date Temp Pulse Resp B/P (MAP) Pulse Ox O2 O2 Flow FiO2 Time Delivery Rate 04/04/19 30 12:12 04/04/19 53 16 100 11:40 04/04/19 98.2 118/58 Trach 11:32 (78) Collar Intake and Output 04/03/19 04/03/19 04/04/19 1515:00 23:00 07:00 IntakeIntake Total 1320 ml 1020 ml OutputOutput Total 600 ml 500 ml BalanceBalance 720 ml 520 ml Results Result Diagram: 04/04/1952904/04/19 05 Medications Medications Current Medications Acetaminophen (Tylenol Tab) 650 mg Q4H PRN GTB MILD PAIN LEVEL 1-3 Last administered on 04/03/19 22:31; Admin Dose 650 MG; Start 03/29/19 at 14:00 Apixaban (Eliquis) 2.5 mg DAILY GTB Last administered on 04/04/19 09:00; Admin Dose 2.5 MG; Start 03/30/19 at 09:00 Ascorbic Acid (Vitamin C) 500 mg BID GTB Last administered on 04/04/19 08:59; Admin Dose 500 MG; Start 03/29/19 at 21:00 Clonazepam (Klonopin) 0.5 mg BID GTB Last administered on 04/04/19 08:59; Admin Dose 0.5 MG; Start 03/29/19 at 21:00 Levetiracetam (Keppra Liquid) 1,500 mg Q12H GTB Last administered on 04/04/19 0 2:04; Admin Dose 1,500 MG; Start 03/29/19 at 14:00 Levothyroxine Sodium (Synthroid) 100 mcg BEFORE BREAKFAST GTB Last administered on 04/04/19 05:46; Admin Dose 100 MCG; Start 03/30/19 at 07:00 Magnesium Hydroxide (Milk Of Mag) 30 ml DAILY GTB Last administered on 04/03/19 09:06; Admin Dose 30 ML; Start 03/30/19 at 09:00 Melatonin (Melatonin) 5 mg HS GTB Last administered on 04/03/19 22:32; Admin Dose 5 MG; Start 03/29/19 at 21:00 Docusate Sodium (Colace Liquid Cup) 100 mg QHS GTB Last administered on 04/03/19 22:29; Admin Dose 100 MG; Start 03/29/19 at 21:00 Ondansetron HCl (Zofran Inj) 4 mg Q6H PRN IV NAUSEA AND/OR VOMITING; Start 03/29/19 at 15:00 Ipratropium [place] (Atrovent Hfa) 2 puff Q4H RESP THERAPY INH Last administered on 04/04/19 13:25; Admin Dose 2 PUFF; Start 03/29/19 at 17:00 Ipratropium [place] (Atrovent Hfa) 2 puff Q2H RESP THERAPY PRN INH SHORTNESS OF BREATH; Start 03/29/19 at 15:00 Lorazepam (Ativan) 1 mg Q2H PRN IV ANXIETY Last administered on 03/30/19 20 :21; Admin Dose 1 MG; Start 03/29/19 at 15:00 Atorvastatin Calcium (Lipitor) 10 mg DAILY@21 PO Last administered on 04/03/19 22:32; Admin Dose 10 MG; Start 03/29/19 at 21:00 Multivitamins/ Minerals (Theragran-M) 1 tab DAILY PO Last administered on 04/04/19 09:00; Admin Dose 1 TAB; Start 03/30/19 at 09:00 Eye Lubricant (Artificial Tears Oph) 1 drop Q12H PRN BOTH EYES DRY EYES; Start 03/29/19 at 18:30 Ferrous Sulfate (Feosol Liquid Cup) 300 mg BID GTB Last administered on 04/04/19 08:59; Admin Dose 300 MG; Start 03/29/19 at 21:00 Diltiazem HCl (Cardizem Iv) 5 mg Q4 PRN IV HR >110; Start 03/30/19 at 10:30 Lisinopril (Zestril) 5 mg DAILY PO Last administered on 04/04/19 09:00; Admin Dose 5 MG; Start 03/31/19 at 09:00 Pantoprazole (Protonix Tab) 40 mg DAILY@06 PO Last administered on 04/04/19 05:47; Admin Dose 40 MG; Start 03/31/19 at 12:00 Furosemide (Lasix) 40 mg DAILY NGT Last administered on 7/5/19at 09:00; Admin Dose 40 MG; Start 04/02/19 at 09:00 Ceftriaxone Sodium 50 ml @ 100 mls/hr Q24H IVPB Last administered on 04/04/19at 12:06; Admin Dose 100 MLS/HR; Start 04/01/19 at 12:00 Carvedilol (Coreg) 6.25 mg BID GTB ; Start 04/04/19 at 21:00 Amiodarone HCl (Cordarone) 200 mg BID PO ; Start 04/04/19 at 21:00 VTE Prophylaxis Risk score (from Ns)>0 risk: 5 SCD applied (from [facility] [place]): Yes Lines/Catheters IV Catheter Type: Lakhani in Place: No Assessment/Plan Hospital Course Subjective No acute changes, patient stable Objective Physical exam General: Patient is laying in bed trach to vent Mentation: Patient is occasionally arousable however not oriented, Head: Normocephalic atraumatic Eyes: EOMI, pupils reactive to light Neck: Supple, nontender, midline Respiratory: Clear to auscultation bilaterally Cardiovascular: regular rate, no obvious murmurs Gastrointestinal: non-tender to palpation, bowel sounds heard. Neurological: Cannot properly assess due to mentation Skin: No new skin lesions Assessment/Plan 1. Acute on chronic hypoxic respiratory failure- stable - most likely secondary to pulmonary congestion - repeat CXR as needed - Continue on mechanical ventilation, patient was on SIMV mode at alf prior to this admission - Pulmonology consulted for vent management - Nebs on board Questionable tics -Possible breakthrough seizure, although unlikely, according to patient's family patient has been suffering this for many years -Medications per neurology -Neurology recommendations appreciated Acute on chronic diastolic heart failure - Continue on Lasix and monitor I/O and daily weights - BNP elevated - CXR noted for pulm congestion - Cardiology consulted Afib with RVR, resolving -Patient's IV medications will now be switched over to oral medications per nurse case management - Continue on Eliquis at the current unique dose due to history of subdural hemorrhage UTI - ID consultation appreciated - Urine cx showing gram neg rods - IV antibiotics Chronic urinary retention, resolved -Urology consulted, lakhani removed -doing well without Lakhani, continue monitoring. 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 s/p evacuation -Baseline is able to open eyes, no purposeful movement Diabetes Mellitus - check A1c hypothyroidism - TSH within normal limits - continue levothyroxine HTN GERD - PPI h/o CVA with L residual weakness Seizures - continue keppra -Ativan as needed -We will consult neurology for breakthrough seizures h/o breast CA s/p mastectomy -Spoke with patient's daughters, patient is near due for screening, however due to the fickle nature of patient's renal function/urinary retention and the fact that she is acutely hospitalized I recommended CT of the abdomen pelvis and chest to be done outpatient as it will need to be done with contrast to rule out mass. Disposition -Continue current management, Way evaluation. Continue to monitor culture results on thoracentesis ROMEO DURAND Apr 04, 2019 13:30
--- NOTE | 2019-04-04 14:09 | CONS ---
Consult Date/Type/Reason Admit Date/Time Mar 29, 2019 at 13:25 Initial Consult Date 03/30/19 Type of Consult Pulmonary Requesting Provider: ROMEO DURAND Date/Time of Note DATE: 04/04/19 TIME: 14:06 Subjective NECK: Supple. No JVD or lymphadenopathy. CARDIAC: Sounds 1 and 2, no added sounds or murmurs. CHEST: Diminished air entry bilaterally. ABDOMEN: Soft, nontender. No guarding or rebound. EXTREMITIES: No cyanosis, clubbing, edema. NEUROLOGIC: Unable to assess. Objective Vital Signs Date Temp Pulse Resp B/P (MAP) Pulse Ox O2 O2 Flow FiO2 Time Delivery Rate 04/04/19 30 12:12 04/04/19 53 16 100 11:40 04/04/19 98.2 118/58 Trach 11:32 (78) Collar Intake and Output 04/03/19 04/03/19 04/04/19 1515:00 23:00 07:00 IntakeIntake Total 1320 ml 1020 ml OutputOutput Total 600 ml 500 ml BalanceBalance 720 ml 520 ml Vent Setting Ventilator Support Mode: AC Fraction of Inspired Oxygen pe: 30 Positive End Expiratory Pressu: 5.0 Results/Medications Result Diagram: 04/04/19 0530 04/04/19 0530 Results 24 hrs Laboratory Tests Test 04/04/19 05:30 White Blood Count 5.5 Red Blood Count 3.98 L Hemoglobin 11.4 L Hematocrit 33.6 L Mean Corpuscular Volume 84.4 Mean Corpuscular Hemoglobin 28.6 L Mean Corpuscular Hemoglobin Concent 33.9 Red Cell Distribution Width 14.0 Platelet Count 198 Mean Platelet Volume 12.1 H Immature Granulocytes % 0.500 H Neutrophils % 58.4 Lymphocytes % 18.0 Monocytes % 16.9 H Eosinophils % 5.3 Basophils % 0.9 Nucleated Red Blood Cells % 0.0 Immature Granulocytes # 0.030 Neutrophils # 3.2 Lymphocytes # 1.0 Monocytes # 0.9 Eosinophils # 0.3 Basophils # 0.1 Nucleated Red Blood Cells # 0.0 Sodium Level 143 Potassium Level 3.7 Chloride Level 109 Carbon Dioxide Level 25 Anion Gap 9 Blood Urea Nitrogen 13 Creatinine 0.36 L Est Glomerular Filtrat Rate mL/min > 60 Glucose Level 100 # Calcium Level 8.5 Phosphorus Level 3.8 Magnesium Level 2.4 Medications Current Medications Acetaminophen (Tylenol Tab) 650 mg Q4H PRN GTB MILD PAIN LEVEL 1-3 Last administered on 04/03/19 22:31; Admin Dose 650 MG; Start 03/29/19 at 14:00 Apixaban (Eliquis) 2.5 mg DAILY GTB Last administered on 04/04/19 09:00; Admin Dose 2.5 MG; Start 03/30/19 at 09:00 Ascorbic Acid (Vitamin C) 500 mg BID GTB Last administered on 04/04/19 08:59; Admin Dose 500 MG; Start 03/29/19 at 21:00 Clonazepam (Klonopin) 0.5 mg BID GTB Last administered on 04/04/19 08:59; Admin Dose 0.5 MG; Start 03/29/19 at 21:00 Levetiracetam (Keppra Liquid) 1,500 mg Q12H GTB Last administered on 04/04/19 02:04; Admin Dose 1,500 MG; Start 03/29/19 at 14:00 Levothyroxine Sodium (Synthroid) 100 mcg BEFORE BREAKFAST GTB Last administered on 04/04/19 05:46; Admin Dose 100 MCG; Start 03/30/19 at 07:00 Magnesium Hydroxide (Milk Of Mag) 30 ml DAILY GTB Last administered on 04/03/19 09:06; Admin Dose 30 ML; Start 03/30/19 at 09:00 Melatonin (Melatonin) 5 mg HS GTB Last administered on 04/03/19 22:32; Admin Dose 5 MG; Start 03/29/19 at 21:00 Docusate Sodium (Colace Liquid Cup) 100 mg QHS GTB Last administered on 04/03/19 22:29; Admin Dose 100 MG; Start 03/29/19 at 21:00 Ondansetron HCl (Zofran Inj) 4 mg Q6H PRN IV NAUSEA AND/OR VOMITING; Start 03/29/19 at 15:00 Ipratropium [place] (Atrovent Hfa) 2 puff Q4H RESP THERAPY INH Last administered on 04/04/19 13:25; Admin Dose 2 PUFF; Start 03/29/19 at 17:00 Ipratropium [place] (Atrovent Hfa) 2 puff Q2H RESP THERAPY PRN INH SHORTNESS OF BREATH; Start 03/29/19 at 15:00 Lorazepam (Ativan) 1 mg Q2H PRN IV ANXIETY Last administered on 03/30/19 20:21; Admin Dose 1 MG; Start 03/29/19 at 15:00 Atorvastatin Calcium (Lipitor) 10 mg DAILY@21 PO Last administered on 04/03/19 22:32; Admin Dose 10 MG; Start 03/29/19 at 21:00 Multivitamins/ Minerals (Theragran-M) 1 tab DAILY PO Last administered on 04/04/19 09:00; Admin Dose 1 TAB; Start 03/30/19 at 09:00 Eye Lubricant (Artificial Tears Oph) 1 drop Q12H PRN BOTH EYES DRY EYES; Start 03/29/19 at 18:30 Ferrous Sulfate (Feosol Liquid Cup) 300 mg BID GTB Last administered on 04/04/19 08:59; Admin Dose 300 MG; Start 03/29/19 at 21:00 Diltiazem HCl (Cardizem Iv) 5 mg Q4 PRN IV HR >110; Start 03/30/19 at 10:30 Lisinopril (Zestril) 5 mg DAILY PO Last administered on 04/04/19 09:00; Admin Dose 5 MG; Start 03/31/19 at 09:00 Pantoprazole (Protonix Tab) 40 mg DAILY@06 PO Last administered on 04/04/19 05:47; Admin Dose 40 MG; Start 03/31/19 at 12:00 Furosemide (Lasix) 40 mg DAILY NGT Last administered on 04/04/19 09:00; Admin Dose 40 MG; Start 04/02/19 at 09:00 Ceftriaxone Sodium 50 ml @ 100 mls/hr Q24H IVPB Last administered on 04/04/19 12:06; Admin Dose 100 MLS/HR; Start 04/01/19 at 12:00 Carvedilol (Coreg) 6.25 mg BID GTB ; Start 04/04/19 at 21:00 Amiodarone HCl (Cordarone) 200 mg BID PO ; Start 04/04/19 at 21:00 Assessment/Plan Hospital Course (Demo Recall) IMPRESSION: 1. Ventilator-dependent respiratory failure with encephalopathy. 2. Subdural hematoma status post evacuation. 3. Urinary tract infection with recent extended spectrum beta lactamase. 4. Atrial fibrillation with rapid ventricular rate. 5. Dysphagia with G-tube. 6. Right pleural status post thoracentesis PLAN: 1. Continue mechanical ventilation. 2. Tube feeding as tolerated. 3. Antibiotics per infectious diseases pending cultures. 4. Rate control per cardiology. Currently on amiodarone. 5. Tube feeding as tolerated. 6. Deep venous thrombosis and GI prophylaxis. Transfer to [place] MICHAEL FONTAINE MD, [facility] Apr 04, 2019 14:09
--- NOTE | 2019-04-04 14:38 | DS ---
Date/Time of Note Date/Time of Note DATE: 04/04/19 TIME: 14:38 Discharge Summary Admission/Discharge Info Admit Date/Time Mar 29, 2019 at 13:25 Discharge Date/Time Patient Condition: Stable Hospital Course Patient is a female with a past medical history significant for chronic encephalopathy with baseline being able to open her eyes and occasionally tracking who presented from her long term for A. fib with RVR as well as hypoxic respiratory failure. Patient is chronically on a trach as well as a PEG tube for feeding. Patient was seen by cardiology and pulmonology and subsequently patient's atrial fibrillation was managed with new medication as well as pulmonology which also performed thoracentesis for excessive fluid. Patient's baseline at outside facility is SIMV mode on her ventilator. Patient currently is stable for transfer to [facility]. Patient also had questionable tics that initially were concerning for seizure however upon further investigation and neurology consultation these takes are occasional and do seem to be chronic with the patient for approximately 15 years. Of note regarding patient's atrial fibrillation with RVR, cardiology did change of her medications and also added amiodarone. Currently patient will be on amiodarone twice a day however it is recommended from cardiology standpoint to be downgraded to once daily dosing on discharge back to her halfway facility. I also recommend that infectious disease continue to follow along with patient for her UTI and also to follow-up with cultures of her thoracentesis. Likely patient's chronic urinary retention has now resolved temporarily, urology was able to titrate patient off Adams catheter which was likely the initial reason of UTI and therefore placing patient in A. fib with RVR as well as respiratory failure with CHF exacerbation. Patient previously had a chronic Adams catheter for many months. Patient should continue her previous medication for diabetes mellitus and hypothyroidism as well as hypertension. Of note patient's daughters wanted screening for cancer however at this time due to her history of breast cancer I recommended CT of the chest abdomen and pelvis with contrast, but as we were able to remove the Adams, I recommended outpatient follow-up as contrast may interfere with her kidneys and ability to keep Adams out of patient. Patient is stable for transfer. Of note patient is on a unique dose of Eliquis for her A. fib with RVR, cardiology states they believe that this was addressed previously and the reason for her lower than normal dose of Eliquis is likely due to her history of subdural hemorrhage. 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, Diabetes mellitus Hypothyroidism Hypertension GERD History of CVA with residual left-sided weakness Epilepsy History of breast cancer status post mastectomy Home Meds Reported Medications Clonazepam* (Clonazepam*) 0.5 Mg Tablet, 0.5 MG GTB BID, TAB 03/29/19 Potassium Chloride* (Potassium Chloride*) 20 Meq Tablet.er, 20 MEQ GTB DAILY, TAB.SA 03/29/19 Melatonin (Melatonin) 5 Mg Tablet, 5 MG GTB HS, TAB 03/29/19 Lovastatin* (Lovastatin*) 10 Mg Tablet, 10 MG GTB HS, TAB 03/29/19 Levothyroxine Sodium* (Levothyroxine Sodium*) 100 Mcg Tablet, 100 MCG GTB BEFORE BREAKFAST, #30 TAB 03/29/19 Levetiracetam* (Keppra* (Ped)) 100 Mg/Ml Liq, 15 ML GTB Q12H for 30 Days, BOTTLE 03/29/19 Apixaban* (Eliquis*) 2.5 Mg Tablet, 2.5 MG GTB DAILY, TAB 03/29/19 Amlodipine Besylate* (Amlodipine Besylate*) 10 Mg Tablet, 10 MG GTB DAILY, #30 TAB HOLD FOR SBP<110 OR HR<60 03/29/19 Dextran 70/Hypromellose/Pf (ARTIFICIAL TEARS DROPS) 1 Each Droperette, 1 EACH OP Q12H 03/29/19 Acetaminophen* (Acetaminophen*) 500 MG Extra Strength Tablet, 1000 MG GTB Q4H PRN for PAIN LEVEL 4-6/10, TAB 03/29/19 Acetaminophen* (Tylenol*) 325 Mg Tablet, 650 MG GTB PRN PRN for TRACH TUBE CHANGE, TAB 03/29/19 Acetaminophen* (Tylenol*) 325 Mg Tablet, 650 MG GTB Q4H PRN for MILD PAIN LEVEL 1-3, TAB AND FOR FEVER 101 AND ABOVE 03/29/19 Bisacodyl (Dulcolax) 10 Mg Supp.rect, 10 MG RC DAILY, SUPP.RECT 03/29/19 Sodium Phosphate,[place]-Dibasic (Enema Ready To Use) 133 Ml Enema, 133 ML RC Q2D, ENEMA 03/29/19 Magnesium Hydroxide* (Milk Of Magnesia*) 400 Mg/5 Ml Oral.susp, 30 ML GTB DAILY, ML 03/29/19 Docusate Sodium* (Colace*) 100 Mg Capsule, 100 MG GTB QHS, #30 CAP 03/29/19 Multivit &Minerals/Ferrous Fum (MULTIVITAMIN LIQUID) 9 Mg/15 Ml Liquid, 5 ML GTB DAILY 03/29/19 Ascorbic Acid (Vitamin C) 500 Mg Tab, 500 MG GTB BID, TAB 03/29/19 Ferrous Sulfate* (Ferrous Sulfate*) 220 Mg/5 Ml Solution, 7.5 ML GTB BID, ML 03/29/19 Cran/Vitc/Mannose/Inulin/Brom (Uti-Stat Liquid) 3,875 Mg/30 Ml Liquid, 30 MG GTB DAILY 03/29/19 Cranberry Extract (Cranberry) 425 Mg Capsule, 425 MG GTB BID, CAP 03/29/19 Primary Care Provider Shukri Thomas MD Time spent on discharge: > 30 minutes Pending Labs Laboratory Tests Test 04/04/19 05:30 White Blood Count 5.5 10^3/ul (4.8-10.8) Red Blood Count 3.98 10^6/ul (4.20-5.40) Hemoglobin 11.4 g/dl (12.0-16.0) Hematocrit 33.6 % (37.0-47.0) Mean Corpuscular Volume 84.4 fl (82.0-101.0) Mean Corpuscular Hemoglobin 28.6 pg (29.0-33.0) Mean Corpuscular Hemoglobin Concent 33.9 g/dl (32.0-37.0) Red Cell Distribution Width 14.0 % (11.5-14.5) Platelet Count 198 10^3/UL (140-415) Mean Platelet Volume 12.1 fl (7.4-10.4) Immature Granulocytes % 0.500 % (0.001-0.429) Neutrophils % 58.4 % (39.0-77.0) Lymphocytes % 18.0 % (15.0-51.0) Monocytes % 16.9 % (0.0-11.0) Eosinophils % 5.3 % (0.0-7.0) Basophils % 0.9 % (0.0-2.0) Nucleated Red Blood Cells % 0.0 /100WBC (0.0-0.0) Immature Granulocytes # 0.030 10^3/ul (0.0-0.031) Neutrophils # 3.2 10^3/ul (1.6-7.5) Lymphocytes # 1.0 10^3/ul (0.8-2.9) Monocytes # 0.9 10^3/ul (0.3-0.9) Eosinophils # 0.3 10^3/ul (0.0-0.5) Basophils # 0.1 10^3/ul (0.0-0.1) Nucleated Red Blood Cells # 0.0 10^3/ul (0.0-0.0) Sodium Level 143 mmol/L (135-144) Potassium Level 3.7 mmol/L (3.5-5.1) Chloride Level 109 mmol/L (97-110) Carbon Dioxide Level 25 mmol/L (21-31) Anion Gap 9 (5-13) Blood Urea Nitrogen 13 mg/dl (7-20) Creatinine 0.36 mg/dl (0.44-1.00) Est Glomerular Filtrat Rate mL/min > 60 mL/min (>60) Glucose Level 100 mg/dl (70-220) Calcium Level 8.5 mg/dl (8.4-10.2) Phosphorus Level 3.8 mg/dl (2.5-4.9) Magnesium Level 2.4 mg/dl (1.7-2.5) ROMEO DURAND Apr 04, 2019 14:38
--- NOTE | 2019-04-04 15:42 | CONS ---
Assessment/Plan Assessment/Plan Hospital Course (Demo Recall) ID PROGRESS NOTE CURRENT ABX: DAY #7 =>CEFTRIAXONE 24H INTERVAL SUMMARY * DC PLANNING IN PROCESS -- no new issues * 64 yo F w/hx of craniotomy, opens eyes, does not follow commands, noncommunicative w/ Trach/PEG * Afebrile, VSS, NAD, looks comfortable -- s/p Thora 04/02/19 DIAGNOSTIC IMAGING * 04/02/19 CXR: 1. Persistent small to moderate size bilateral pleural effusions with associated atelectasis. 2. Persistent cardiomegaly with mild central vascular congestion. * 04/01/19 CT BRAIN: IMPRESSION:1. No acute intracranial hemorrhage or extra- axial fluid collection.2. Left hemisphere craniotomy.3. Severe ventriculomegaly which is greater than sulcal prominence suggesting central greater than peripheral volume loss. A component of normal pressure hydrocephalus is not excluded. 4. Mild to moderate chronic microvascular ischemic changes.5. Chronic left occipital lobe and left parietal infarctions. 6. Previous noted left hemispheric subdural collection and dural hyperdensity has resolved. MICRO * 07/ * 04/02/19 C.DIFF (-) * 04/01/19 THORA: GRAM STAIN Final POLYMORPH. LEUKOCYTE NONE SEEN . NO ORGANISM SEEN BODY FLUID CULTURE Preliminary NO GROWTH AFTER 1 DAY * 03/29/19 BCX (-) * 03/29/19 URINE CULTURE Final Organism 1 ESCHERICHIA COLI COLONY COUNT >100,000 CFU/ml Organism 2 PROTEUS MIRABILIS COLONY COUNT >100,000 CFU/ml E COLI P. MIRAB M.I.C. RX M.I.C. RX --------- --- --------- --- AMPICILLIN >=32 R >=32 R CEFAZOLIN R CEFOTAXIME S S CIPROFLOXACIN <=0.25 S >=4 R GENTAMICIN <=1 S <=1 S LEVOFLOXACIN <=0.12 S >=8 R NITROFURANTOIN <=16 S 128 R TOBRAMYCIN <=1 S <=1 S TRIMETHOPRIM/SULFAMETHOXAZOLE <=20 S >=320 R PHYSICAL EXAMINATION: GENERAL: VSS, NAD HEENT: AT, NC, NECK: Supple, CHEST: Rise symmetrical HEART: Pulse RRR ABDOMEN: EXTREMITIES: Warm, dry SKIN: No rash, no diaphoresis ID ASSESSMENT 64 yo F admit with: 1. Acute on chronic hypoxemic respiratory failure secondary to pulmonary congestion 2. Urinary tract infection, gram-negative rods 3. Atrial fibrillation s/p rapid ventricular response 4. Chronic encephalopathy with a history of subdural hematoma and left fish- craniotomy, ventriculomegaly, hx of infarcts 5. Diabetes 6. Hypertension ABX ALLERGIES: PCN/VANCO IV INVASIVES: PIV CURRENT ABX: ABX DAY #7 =>CEFTRIAXONE ID RECOMMENDATIONS/PLAN: 1. DC ABX after today's dose / Consultation Date/Type/Reason Admit Date/Time Mar 29, 2019 at 13:25 Initial Consult Date 03/31/19 Requesting Provider: ROMEO DURAND Date/Time of Note DATE: 04/04/19 TIME: 15:37 Exam/Review of Systems Exam Vitals Vital Signs Date Temp Pulse Resp B/P (MAP) Pulse Ox O2 O2 Flow FiO2 Time Delivery Rate 04/04/19 98.0 56 14 138/65 100 Trach 15:27 (89) Collar 04/04/19 30 12:12 Intake and Output 04/03/19 04/03/19 04/04/19 1414:59 22:59 06:59 IntakeIntake Total 1320 ml 1020 ml OutputOutput Total 600 ml 500 ml BalanceBalance 720 ml 520 ml Results Result Diagram: 04/04/19 0530 04/04/19 0530 Results 24hrs Laboratory Tests Test 04/04/19 05:30 White Blood Count 5.5 Red Blood Count 3.98 L Hemoglobin 11.4 L Hematocrit 33.6 L Mean Corpuscular Volume 84.4 Mean Corpuscular Hemoglobin 28.6 L Mean Corpuscular Hemoglobin Concent 33.9 Red Cell Distribution Width 14.0 Platelet Count 198 Mean Platelet Volume 12.1 H Immature Granulocytes % 0.500 H Neutrophils % 58.4 Lymphocytes % 18.0 Monocytes % 16.9 H Eosinophils % 5.3 Basophils % 0.9 Nucleated Red Blood Cells % 0.0 Immature Granulocytes # 0.030 Neutrophils # 3.2 Lymphocytes # 1.0 Monocytes # 0.9 Eosinophils # 0.3 Basophils # 0.1 Nucleated Red Blood Cells # 0.0 Sodium Level 143 Potassium Level 3.7 Chloride Level 109 Carbon Dioxide Level 25 Anion Gap 9 Blood Urea Nitrogen 13 Creatinine 0.36 L Est Glomerular Filtrat Rate mL/min > 60 Glucose Level 100 # Calcium Level 8.5 Phosphorus Level 3.8 Magnesium Level 2.4 Medications Medication Current Medications Acetaminophen (Tylenol Tab) 650 mg Q4H PRN GTB MILD PAIN LEVEL 1-3 Last administered on 04/03/19 22:31; Admin Dose 650 MG; Start 03/29/19 at 14:00 Apixaban (Eliquis) 2.5 mg DAILY GTB Last administered on 04/04/19 09:00; Admin Dose 2.5 MG; Start 03/30/19 at 09:00 Ascorbic Acid (Vitamin C) 500 mg BID GTB Last administered on 04/04/19 08:59; A dmin Dose 500 MG; Start 03/29/19 at 21:00 Clonazepam (Klonopin) 0.5 mg BID GTB Last administered on 04/04/19 08:59; Admin Dose 0.5 MG; Start 03/29/19 at 21:00 Levetiracetam (Keppra Liquid) 1,500 mg Q12H GTB Last administered on 04/04/19 14:42; Admin Dose 1,500 MG; Start 03/29/19 at 14:00 Levothyroxine Sodium (Synthroid) 100 mcg BEFORE BREAKFAST GTB Last administered on 04/04/19 05:46; Admin Dose 100 MCG; Start 03/30/19 at 07:00 Magnesium Hydroxide (Milk Of Mag) 30 ml DAILY GTB Last administered on 04/03/19 09:06; Admin Dose 30 ML; Start 03/30/19 at 09:00 Melatonin (Melatonin) 5 mg HS GTB Last administered on 04/03/19 22:32; Admin Dose 5 MG; Start 03/29/19 at 21:00 Docusate Sodium (Colace Liquid Cup) 100 mg QHS GTB Last administered on 04/03/19 22:29; Admin Dose 100 MG; Start 03/29/19 at 21:00 Ondansetron HCl (Zofran Inj) 4 mg Q6H PRN IV NAUSEA AND/OR VOMITING; Start 03/29/19 at 15:00 Ipratropium [place] (Atrovent Hfa) 2 puff Q4H RESP THERAPY INH Last administered on 04/04/19 13:25; Admin Dose 2 PUFF; Start 03/29/19 at 17:00 Ipratropium [place] (Atrovent Hfa) 2 puff Q2H RESP THERAPY PRN INH SHORTNESS OF BREATH; Start 03/29/19 at 15:00 Lorazepam (Ativan) 1 mg Q2H PRN IV ANXIETY Last administered on 03/30/19 20:21; Admin Dose 1 MG; Start 03/29/19 at 15:00 Atorvastatin Calcium (Lipitor) 10 mg DAILY@21 PO Last administered on 04/03/19 22:32; Admin Dose 10 MG; Start 03/29/19 at 21:00 Multivitamins/ Minerals (Theragran-M) 1 tab DAILY PO Last administered on 04/04/19 09:00; Admin Dose 1 TAB; Start 03/30/19 at 09:00 Eye Lubricant (Artificial Tears Oph) 1 drop Q12H PRN BOTH EYES DRY EYES; Start 03/29/19 at 18:30 Ferrous Sulfate (Feosol Liquid Cup) 300 mg BID GTB Last administered on 04/04/19 08:59; Admin Dose 300 MG; Start 03/29/19 at 21:00 Diltiazem HCl (Cardizem Iv) 5 mg Q4 PRN IV HR >110; Start 03/30/19 at 10:30 Lisinopril (Zestril) 5 mg DAILY PO Last administered on 04/04/19 09:00; Admin Dose 5 MG; Start 03/31/19 at 09:00 Pantoprazole (Protonix Tab) 40 mg DAILY@06 PO Last administered on 04/04/19 05:47; Admin Dose 40 MG; Start 03/31/19 at 12:00 Furosemide (Lasix) 40 mg DAILY NGT Last administered on 04/04/19 09:00; Admin Dose 40 MG; Start 04/02/19 at 09:00 Ceftriaxone Sodium 50 ml @ 100 mls/hr Q24H IVPB Last administered on 04/04/19 12:06; Admin Dose 100 MLS/HR; Start 04/01/19 at 12:00 Carvedilol (Coreg) 6.25 mg BID GTB ; Start 04/04/19 at 21:00 Amiodarone HCl (Cordarone) 200 mg BID PO ; Start 04/04/19 at 21:00 MIGUEL ANGEL HUERTAS NP Apr 04, 2019 15:42
[2019-04-04] MEDS: DOCUSATE SODIUM 10 MG/ML (10ML CUP) GTB SCH (21:24)
[2019-04-04] MEDS: ATORVASTATIN 10 MG TAB PO SCH (21:27)
[2019-04-04] MEDS: MELATONIN 5 MG TABLET GTB SCH (21:31)
[2019-04-05] VITALS (17 sets, daily range): BP systolic 120–168; BP diastolic 58–72; PULSE 50–62; RESP 14–20
[2019-04-05] MEDS: IPRATROPIUM (HFA) 12.9 GM INHALER INH SCH ×6 (01:31→19:45)
[2019-04-05] MEDS: LEVETIRACETAM (100 MG/ML) 5ML CUP GTB SCH ×2 (02:23→13:47)
[2019-04-05] MEDS: LEVOTHYROXINE 100 MCG TAB GTB SCH (05:17)
[2019-04-05] MEDS: PANTOPRAZOLE (EC) 40 MG TAB PO SCH (05:17)
[2019-04-05] MEDS: clonAZEPAM 0.5 MG TAB GTB SCH ×2 (10:15→20:54)
[2019-04-05] MEDS: FERROUS SULFATE 60 MG/ML 5ML CUP GTB SCH ×2 (10:15→20:50)
[2019-04-05] MEDS: ASCORBIC ACID 500 MG TAB GTB SCH ×2 (10:15→20:52)
[2019-04-05] MEDS: MULTIVITAMINS/MINERALS TAB PO SCH (10:15)
[2019-04-05] MEDS: APIXABAN 5 MG TABLET GTB SCH (10:15)
[2019-04-05] MEDS: MAGNESIUM HYDROXIDE 30ML CUP GTB SCH (10:15)
[2019-04-05] MEDS: FUROSEMIDE 40 MG TAB NGT SCH (10:21)
[2019-04-05] MEDS: AMIODARONE 200 MG TAB PO SCH ×2 (10:22→20:53)
[2019-04-05] MEDS: LISINOPRIL 5 MG TAB PO SCH (10:22)
--- NOTE | 2019-04-05 11:07 | CONS ---
Consult Date/Type/Reason Admit Date/Time Mar 29, 2019 at 13:25 Initial Consult Date 03/30/19 Type of Consult Pulmonary Requesting Provider: ROMEO DURAND Date/Time of Note DATE: 04/05/19 TIME: 11:06 Subjective Patient stable this morning no respiratory distress Objective Vital Signs Date Temp Pulse Resp B/P (MAP) Pulse Ox O2 O2 Flow FiO2 Time Delivery Rate 04/05/19 50 14 100 30 09:42 04/05/19 97.7 136/65 07:48 (88) 04/04/19 Trach 15:27 Collar Intake and Output 04/04/19 04/04/19 04/05/19 1515:00 23:00 07:00 IntakeIntake Total 1320 ml 1320 ml OutputOutput Total 248 ml BalanceBalance 1320 ml 1072 ml Exam NECK: Supple. No JVD or lymphadenopathy. CARDIAC: Sounds 1 and 2, no added sounds or murmurs. CHEST: Diminished air entry bilaterally. ABDOMEN: Soft, nontender. No guarding or rebound. EXTREMITIES: No cyanosis, clubbing, edema. NEUROLOGIC: Unable to assess. Vent Setting Ventilator Support Mode: AC, VC plus Fraction of Inspired Oxygen pe: 30 Positive End Expiratory Pressu: 5.0 Results/Medications Result Diagram: 04/05/19 0611 04/05/19 0611 Results 24 hrs Laboratory Tests Test 04/05/19 06:11 White Blood Count 6.0 Red Blood Count 4.27 Hemoglobin 12.1 Hematocrit 35.7 L Mean Corpuscular Volume 83.6 Mean Corpuscular Hemoglobin 28.3 L Mean Corpuscular Hemoglobin Concent 33.9 Red Cell Distribution Width 14.2 Platelet Count 202 Mean Platelet Volume 11.9 H Immature Granulocytes % 0.500 H Neutrophils % 60.4 Lymphocytes % 17.9 Monocytes % 15.6 H Eosinophils % 4.8 Basophils % 0.8 Nucleated Red Blood Cells % 0.0 Immature Granulocytes # 0.030 Neutrophils # 3.6 Lymphocytes # 1.1 Monocytes # 0.9 Eosinophils # 0.3 Basophils # 0.1 Nucleated Red Blood Cells # 0.0 Sodium Level 142 Potassium Level 3.8 Chloride Level 106 Carbon Dioxide Level 28 Anion Gap 8 Blood Urea Nitrogen 13 Creatinine 0.36 L Est Glomerular Filtrat Rate mL/min > 60 Glucose Level 111 Calcium Level 8.8 Phosphorus Level 4.2 Magnesium Level 2.2 Medications Current Medications Acetaminophen (Tylenol Tab) 650 mg Q4H PRN GTB MILD PAIN LEVEL 1-3 Last administered on 04/03/19 22:31; Admin Dose 650 MG; Start 03/29/19 at 14:00 Apixaban (Eliquis) 2.5 mg DAILY GTB Last administered on 04/05/19 10:15; Admin Dose 2.5 MG; Start 03/30/19 at 09:00 Ascorbic Acid (Vitamin C) 500 mg BID GTB Last administered on 04/05/19 10:15; Admin Dose 500 MG; Start 03/29/19 at 21:00 Clonazepam (Klonopin) 0.5 mg BID GTB Last administered on 04/05/19 10:15; Admin Dose 0.5 MG; Start 03/29/19 at 21:00 Levetiracetam (Keppra Liquid) 1,500 mg Q12H GTB Last administered on 04/05/19 02:23; Admin Dose 1,500 MG; Start 03/29/19 at 14:00 Levothyroxine Sodium (Synthroid) 100 mcg BEFORE BREAKFAST GTB Last administered on 04/05/19 05:17; Admin Dose 100 MCG; Start 03/30/19 at 07:00 Magnesium Hydroxide (Milk Of Mag) 30 ml DAILY GTB Last administered on 04/05/19 10:15; Admin Dose 30 ML; Start 03/30/19 at 09:00 Melatonin (Melatonin) 5 mg HS GTB Last administered on 04/04/19 21:31; Admin Dose 5 MG; Start 03/29/19 at 21:00 Docusate Sodium (Colace Liquid Cup) 100 mg QHS GTB Last administered on 04/04/19 21:24; Admin Dose 100 MG; Start 03/29/19 at 21:00 Ondansetron HCl (Zofran Inj) 4 mg Q6H PRN IV NAUSEA AND/OR VOMITING; Start 03/29/19 at 15:00 Ipratropium [place] (Atrovent Hfa) 2 puff Q4H RESP THERAPY INH Last administered on 04/05/19 10:23; Admin Dose 2 PUFF; Start 03/29/19 at 17:00 Ipratropium [place] (Atrovent Hfa) 2 puff Q2H RESP THERAPY PRN INH SHORTNESS OF BREATH; Start 03/29/19 at 15:00 Lorazepam (Ativan) 1 mg Q2H PRN IV ANXIETY Last administered on 03/30/19 20:21; Admin Dose 1 MG; Start 03/29/19 at 15:00 Atorvastatin Calcium (Lipitor) 10 mg DAILY@21 PO Last administered on 04/04/19 21:27; Admin Dose 10 MG; Start 03/29/19 at 21:00 Multivitamins/ Minerals (Theragran-M) 1 tab DAILY PO Last administered on 04/05/19 10:15; Admin Dose 1 TAB; Start 03/30/19 at 09:00 Eye Lubricant (Artificial Tears Oph) 1 drop Q12H PRN BOTH EYES DRY EYES; Start 03/29/19 at 18:30 Ferrous Sulfate (Feosol Liquid Cup) 300 mg BID GTB Last administered on 04/05/19 10:15; Admin Dose 300 MG; Start 03/29/19 at 21:00 Diltiazem HCl (Cardizem Iv) 5 mg Q4 PRN IV HR >110; Start 03/30/19 at 10:30 Lisinopril (Zestril) 5 mg DAILY PO Last administered on 04/05/19 10:22; Admin Dose 5 MG; Start 03/31/19 at 09:00 Pantoprazole (Protonix Tab) 40 mg DAILY@06 PO Last administered on 04/05/19 05:17; Admin Dose 40 MG; Start 03/31/19 at 12:00 Furosemide (Lasix) 40 mg DAILY NGT Last administered on 04/05/19 10:21; Admin Dose 40 MG; Start 04/02/19 at 09:00 Amiodarone HCl (Cordarone) 200 mg BID PO Last administered on 04/05/19 10:22; Admin Dose 200 MG; Start 04/04/19 at 21:00 Carvedilol (Coreg) 3.125 mg BID GTB ; Start 04/05/19 at 21:00 Assessment/Plan Hospital Course (Demo Recall) IMPRESSION: 1. Ventilator-dependent respiratory failure with encephalopathy. 2. Subdural hematoma status post evacuation. 3. Urinary tract infection with recent extended spectrum beta lactamase. 4. Atrial fibrillation with rapid ventricular rate. 5. Dysphagia with G-tube. 6. Right pleural status post thoracentesis PLAN: 1. Continue mechanical ventilation. 2. Tube feeding as tolerated. 3. De-escalation of antibiotics 4. Rate control per cardiology. 5. Deep venous thrombosis and GI prophylaxis. Transfer to [place] if family agreeable. MICHAEL FONTAINE MD, [facility] Apr 05, 2019 11:07
--- NOTE | 2019-04-05 12:36 | DS ---
Date/Time of Note Date/Time of Note DATE: 04/05/19 TIME: 12:35 Discharge Summary Admission/Discharge Info Admit Date/Time Mar 29, 2019 at 13:25 Discharge Date/Time Patient Condition: Stable Hospital Course DC held due to patient's family wanting to check out facility before transfer Patient is a female with a past medical history significant for chronic encephalopathy with baseline being able to open her eyes and occasionally tracking who presented from her alf for A. fib with RVR as well as hypoxic respiratory failure. Patient is chronically on a trach as well as a PEG tube for feeding. Patient was seen by cardiology and pulmonology and subsequently patient's atrial fibrillation was managed with new medication as well as pulmonology which also performed thoracentesis for excessive fluid. Patient's baseline at outside facility is SIMV mode on her ventilator. Patient currently is stable for transfer to [facility]. Patient also had questionable tics that initially were concerning for seizure however upon further investigation and neurology consultation these takes are occasional and do seem to be chronic with the patient for approximately 15 years. Of note regarding patient's atrial fibrillation with RVR, cardiology did change of her medications and also added amiodarone. Currently patient will be on amiodarone twice a day however it is recommended from cardiology standpoint to be downgraded to once daily dosing on discharge back to her intermediate facility. I also recommend that infectious disease continue to follow along with patient for her UTI and also to follow-up with cultures of her thoracentesis. Likely patient's chronic urinary retention has now resolved temporarily, urology was able to titrate patient off Adams catheter which was likely the initial reason of UTI and therefore placing patient in A. fib with RVR as well as respiratory failure with CHF exacerbation. Patient previously had a chronic Adams catheter for many months. Patient should continue her previous medication for diabetes mellitus and hypothyroidism as well as hypertension. Of note patient's daughters wanted screening for cancer however at this time due to her history of breast cancer I recommended CT of the chest abdomen and pelvis with contrast, but as we were able to remove the Adams, I recommended outpatient follow-up as contrast may interfere with her kidneys and ability to keep Adams out of patient. Patient is stable for transfer. Of note patient is on a unique dose of Eliquis for her A. fib with RVR, cardiology states they believe that this was addressed previously and the reason for her lower than normal dose of Eliquis is likely due to her history of subdural hemorrhage. 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, Diabetes mellitus Hypothyroidism Hypertension GERD History of CVA with residual left-sided weakness Epilepsy History of breast cancer status post mastectomy Home Meds Reported Medications Clonazepam* (Clonazepam*) 0.5 Mg Tablet, 0.5 MG GTB BID, TAB 03/29/19 Potassium Chloride* (Potassium Chloride*) 20 Meq Tablet.er, 20 MEQ GTB DAILY, TAB.SA 03/29/19 Melatonin (Melatonin) 5 Mg Tablet, 5 MG GTB HS, TAB 03/29/19 Lovastatin* (Lovastatin*) 10 Mg Tablet, 10 MG GTB HS, TAB 03/29/19 Levothyroxine Sodium* (Levothyroxine Sodium*) 100 Mcg Tablet, 100 MCG GTB BEFORE BREAKFAST, #30 TAB 03/29/19 Levetiracetam* (Keppra* (Ped)) 100 Mg/Ml Liq, 15 ML GTB Q12H for 30 Days, BOTTLE 03/29/19 Apixaban* (Eliquis*) 2.5 Mg Tablet, 2.5 MG GTB DAILY, TAB 03/29/19 Amlodipine Besylate* (Amlodipine Besylate*) 10 Mg Tablet, 10 MG GTB DAILY, #30 TAB HOLD FOR SBP<110 OR HR<60 03/29/19 Dextran 70/Hypromellose/Pf (ARTIFICIAL TEARS DROPS) 1 Each Droperette, 1 EACH OP Q12H 03/29/19 Acetaminophen* (Acetaminophen*) 500 MG Extra Strength Tablet, 1000 MG GTB Q4H PRN for PAIN LEVEL 4-10, TAB 03/29/19 Acetaminophen* (Tylenol*) 325 Mg Tablet, 650 MG GTB PRN PRN for TRACH TUBE CHANGE, TAB 03/29/19 Acetaminophen* (Tylenol*) 325 Mg Tablet, 650 MG GTB Q4H PRN for MILD PAIN LEVEL 1-3, TAB AND FOR FEVER 101 AND ABOVE 03/29/19 Bisacodyl (Dulcolax) 10 Mg Supp.rect, 10 MG RC DAILY, SUPP.RECT 03/29/19 Sodium Phosphate,Angelina-Dibasic (Enema Ready To Use) 133 Ml Enema, 133 ML RC Q2D, ENEMA 03/29/19 Magnesium Hydroxide* (Milk Of Magnesia*) 400 Mg/5 Ml Oral.susp, 30 ML GTB DAILY, ML 03/29/19 Docusate Sodium* (Colace*) 100 Mg Capsule, 100 MG GTB QHS, #30 CAP 03/29/19 Multivit &Minerals/Ferrous Fum (MULTIVITAMIN LIQUID) 9 Mg/15 Ml Liquid, 5 ML GTB DAILY 03/29/19 Ascorbic Acid (Vitamin C) 500 Mg Tab, 500 MG GTB BID, TAB 03/29/19 Ferrous Sulfate* (Ferrous Sulfate*) 220 Mg/5 Ml Solution, 7.5 ML GTB BID, ML 03/29/19 Cran/Vitc/Mannose/Inulin/Brom (Uti-Stat Liquid) 3,875 Mg/30 Ml Liquid, 30 MG GTB DAILY 03/29/19 Cranberry Extract (Cranberry) 425 Mg Capsule, 425 MG GTB BID, CAP 03/29/19 Primary Care Provider Shukri Thomas MD Time spent on discharge: > 30 minutes Pending Labs Laboratory Tests Test 04/05/19 06:11 White Blood Count 6.0 10^3/ul (4.8-10.8) Red Blood Count 4.27 10^6/ul (4.20-5.40) Hemoglobin 12.1 g/dl (12.0-16.0) Hematocrit 35.7 % (37.0-47.0) Mean Corpuscular Volume 83.6 fl (82.0-101.0) Mean Corpuscular Hemoglobin 28.3 pg (29.0-33.0) Mean Corpuscular Hemoglobin Concent 33.9 g/dl (32.0-37.0) Red Cell Distribution Width 14.2 % (11.5-14.5) Platelet Count 202 10^3/UL (140-415) Mean Platelet Volume 11.9 fl (7.4-10.4) Immature Granulocytes % 0.500 % (0.001-0.429) Neutrophils % 60.4 % (39.0-77.0) Lymphocytes % 17.9 % (15.0-51.0) Monocytes % 15.6 % (0.0-11.0) Eosinophils % 4.8 % (0.0-7.0) Basophils % 0.8 % (0.0-2.0) Nucleated Red Blood Cells % 0.0 /100WBC (0.0-0.0) Immature Granulocytes # 0.030 10^3/ul (0.0-0.031) Neutrophils # 3.6 10^3/ul (1.6-7.5) Lymphocytes # 1.1 10^3/ul (0.8-2.9) Monocytes # 0.9 10^3/ul (0.3-0.9) Eosinophils # 0.3 10^3/ul (0.0-0.5) Basophils # 0.1 10^3/ul (0.0-0.1) Nucleated Red Blood Cells # 0.0 10^3/ul (0.0-0.0) Sodium Level 142 mmol/L (135-144) Potassium Level 3.8 mmol/L (3.5-5.1) Chloride Level 106 mmol/L (97-110) Carbon Dioxide Level 28 mmol/L (21-31) Anion Gap 8 (5-13) Blood Urea Nitrogen 13 mg/dl (7-20) Creatinine 0.36 mg/dl (0.44-1.00) Est Glomerular Filtrat Rate mL/min > 60 mL/min (>60) Glucose Level 111 mg/dl (70-220) Calcium Level 8.8 mg/dl (8.4-10.2) Phosphorus Level 4.2 mg/dl (2.5-4.9) Magnesium Level 2.2 mg/dl (1.7-2.5) ROMEO DURAND Apr 05, 2019 12:36
--- NOTE | 2019-04-05 12:36 | PN ---
Date/Time of Note Date/Time of Note DATE: 04/05/19 TIME: 12:36 Objective Vitals Vital Signs Date Temp Pulse Resp B/P (MAP) Pulse Ox O2 O2 Flow FiO2 Time Delivery Rate 04/05/19 97.5 54 15 129/59 95 11:33 (82) 04/05/19 30 11:09 04/04/19 Trach 15:27 Collar Intake and Output 04/04/19 04/04/19 04/05/19 1515:00 23:00 07:00 IntakeIntake Total 1320 ml 1320 ml OutputOutput Total 248 ml BalanceBalance 1320 ml 1072 ml Results Result Diagram: 04/05/19 0611 04/05/19 0611 Medications Medications Current Medications Acetaminophen (Tylenol Tab) 650 mg Q4H PRN GTB MILD PAIN LEVEL 1-3 Last administered on 04/03/19 22:31; Admin Dose 650 MG; Start 03/29/19 at 14:00 Apixaban (Eliquis) 2.5 mg DAILY GTB Last administered on 04/05/19 10:15; Admin Dose 2.5 MG; Start 03/30/19 at 09:00 Ascorbic Acid (Vitamin C) 500 mg BID GTB Last administered on 04/05/19 10:15; Admin Dose 500 MG; Start 03/29/19 at 21:00 Clonazepam (Klonopin) 0.5 mg BID GTB Last administered on 04/05/19 10:15; Admin Dose 0.5 MG; Start 03/29/19 at 21:00 Levetiracetam (Keppra Liquid) 1,500 mg Q12H GTB Last administered on 04/05/19 02:23; Admin Dose 1,500 MG; Start 03/29/19 at 14:00 Levothyroxine Sodium (Synthroid) 100 mcg BEFORE BREAKFAST GTB Last administered on 04/05/19 05:17; Admin Dose 100 MCG; Start 03/30/19 at 07:00 Magnesium Hydroxide (Milk Of Mag) 30 ml DAILY GTB Last administered on 04/05/19 10:15; Admin Dose 30 ML; Start 03/30/19 at 09:00 Melatonin (Melatonin) 5 mg HS GTB Last administered on 04/04/19 21:31; Admin D ose 5 MG; Start 03/29/19 at 21:00 Docusate Sodium (Colace Liquid Cup) 100 mg QHS GTB Last administered on 04/04/19 21:24; Admin Dose 100 MG; Start 03/29/19 at 21:00 Ondansetron HCl (Zofran Inj) 4 mg Q6H PRN IV NAUSEA AND/OR VOMITING; Start 03/29/19 at 15:00 Ipratropium [place] (Atrovent Hfa) 2 puff Q4H RESP THERAPY INH Last administered on 04/05/19 10:23; Admin Dose 2 PUFF; Start 03/29/19 at 17:00 Ipratropium [place] (Atrovent Hfa) 2 puff Q2H RESP THERAPY PRN INH SHORTNESS OF BREATH; Start 03/29/19 at 15:00 Lorazepam (Ativan) 1 mg Q2H PRN IV ANXIETY Last administered on 03/30/19 20:21; Admin Dose 1 MG; Start 03/29/19 at 15:00 Atorvastatin Calcium (Lipitor) 10 mg DAILY@21 PO Last administered on 04/04/19 21:27; Admin Dose 10 MG; Start 03/29/19 at 21:00 Multivitamins/ Minerals (Theragran-M) 1 tab DAILY PO Last administered on 04/05/19 10:15; Admin Dose 1 TAB; Start 03/30/19 at 09:00 Eye Lubricant (Artificial Tears Oph) 1 drop Q12H PRN BOTH EYES DRY EYES; Start 03/29/19 at 18:30 Ferrous Sulfate (Feosol Liquid Cup) 300 mg BID GTB Last administered on 04/05/19 10:15; Admin Dose 300 MG; Start 03/29/19 at 21:00 Diltiazem HCl (Cardizem Iv) 5 mg Q4 PRN IV HR >110; Start 03/30/19 at 10:30 Lisinopril (Zestril) 5 mg DAILY PO Last administered on 04/05/19 10:22; Admin Dose 5 MG; Start 03/31/19 at 09:00 Pantoprazole (Protonix Tab) 40 mg DAILY@06 PO Last administered on 04/05/19 05:17; Admin Dose 40 MG; Start 03/31/19 at 12:00 Furosemide (Lasix) 40 mg DAILY NGT Last administered on 7/6/19at 10:21; Admin Dose 40 MG; Start 04/02/19 at 09:00 Amiodarone HCl (Cordarone) 200 mg BID PO Last administered on 04/05/19at 10:22; Admin Dose 200 MG; Start 04/04/19 at 21:00 Carvedilol (Coreg) 3.125 mg BID GTB ; Start 04/05/19 at 21:00 VTE Prophylaxis Risk score (from Nsg)>0 risk: 7 SCD applied (from Ns): Yes Lines/Catheters IV Catheter Type: Lakhani in Place: No Assessment/Plan Hospital Course Subjective No acute changes, patient stable Objective Physical exam General: Patient is laying in bed trach to vent Mentation: Patient is occasionally arousable however not oriented, Head: Normocephalic atraumatic Eyes: EOMI, pupils reactive to light Neck: Supple, nontender, midline Respiratory: Clear to auscultation bilaterally Cardiovascular: regular rate, no obvious murmurs Gastrointestinal: non-tender to palpation, bowel sounds heard. Neurological: Cannot properly assess due to mentation Skin: No new skin lesions Assessment/Plan 1. Acute on chronic hypoxic respiratory failure- stable - most likely secondary to pulmonary congestion - repeat CXR as needed - Continue on mechanical ventilation, patient was on [facility] mode at [facility] living prior to this admission - Pulmonology consulted for vent management - Nebs on board Questionable tics -Possible breakthrough seizure, although unlikely, according to patient's family patient has been suffering this for many years -Medications per neurology -Neurology recommendations appreciated Acute on chronic diastolic heart failure - Continue on Lasix and monitor I/O and daily weights - BNP elevated - CXR noted for pulm congestion - Cardiology consulted Afib with RVR, resolving -Patient's IV medications will now be switched over to oral medications per ophthalmic medical technologist - Continue on Eliquis at the current unique dose due to history of subdural hemorrhage UTI - ID consultation appreciated - Urine cx showing gram neg rods - IV antibiotics Chronic urinary retention, resolved -Urology consulted, lakhani removed -doing well without Lakhani, continue monitoring. 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 s/p evacuation -Baseline is able to open eyes, no purposeful movement Diabetes Mellitus - check A1c hypothyroidism - TSH within normal limits - continue levothyroxine HTN GERD - PPI h/o CVA with L residual weakness Seizures - continue keppra -Ativan as needed -We will consult neurology for breakthrough seizures h/o breast CA s/p mastectomy -Spoke with patient's daughters, patient is near due for screening, however due to the fickle nature of patient's renal function/urinary retention and the fact that she is acutely hospitalized I recommended CT of the abdomen pelvis and chest to be done outpatient as it will need to be done with contrast to rule out mass. Disposition -muhammad when able ROMEO DURAND Apr 05, 2019 12:36
--- NOTE | 2019-04-05 15:29 | CONS ---
Assessment/Plan Assessment/Plan Hospital Course (Demo Recall) ID PROGRESS NOTE CURRENT ABX: OFF ABX Day #1 s/p DAY #7 =>CEFTRIAXONE 24H INTERVAL SUMMARY * COMPLETED ABX YESTERDAY WAS LAST DOSE * Afebrile, VSS, NAD, looks comfortable -- s/p Thora 04/02/19 * DC PLANNING IN PROCESS -- no new issues * 64 yo F w/hx of craniotomy, opens eyes, does not follow commands, noncommunicative w/ Trach/PEG DIAGNOSTIC IMAGING * 04/02/19 CXR: 1. Persistent small to moderate size bilateral pleural effusions with associated atelectasis. 2. Persistent cardiomegaly with mild central vascular congestion. * 04/01/19 CT BRAIN: IMPRESSION:1. No acute intracranial hemorrhage or extra- axial fluid collection.2. Left hemisphere craniotomy.3. Severe ventriculomeg kristina which is greater than sulcal prominence suggesting central greater than peripheral volume loss. A component of normal pressure hydrocephalus is not excluded. 4. Mild to moderate chronic microvascular ischemic changes.5. Chronic left occipital lobe and left parietal infarctions. 6. Previous noted left hemispheric subdural collection and dural hyperdensity has resolved. MICRO * 07/ * 04/02/19 C.DIFF (-) * 04/01/19 THORA: GRAM STAIN Final POLYMORPH. LEUKOCYTE NONE SEEN . NO ORGANISM SEEN BODY FLUID CULTURE Preliminary NO GROWTH AFTER 1 DAY * 03/29/19 BCX (-) * 03/29/19 URINE CULTURE Final Organism 1 ESCHERICHIA COLI COLONY COUNT >100,000 CFU/ml Organism 2 PROTEUS MIRABILIS COLONY COUNT >100,000 CFU/ml E COLI P. MIRAB M.I.C. RX M.I.C. RX --------- --- --------- --- AMPICILLIN >=32 R >=32 R CEFAZOLIN R CEFOTAXIME S S CIPROFLOXACIN <=0.25 S >=4 R GENTAMICIN <=1 S <=1 S LEVOFLOXACIN <=0.12 S >=8 R NITROFURANTOIN <=16 S 128 R TOBRAMYCIN <=1 S <=1 S TRIMETHOPRIM/SULFAMETHOXAZOLE <=20 S >=320 R PHYSICAL EXAMINATION: GENERAL: VSS, NAD HEENT: AT, NC, NECK: Supple, CHEST: Rise symmetrical HEART: Pulse RRR ABDOMEN: EXTREMITIES: Warm, dry SKIN: No rash, no diaphoresis ID ASSESSMENT 64 yo F admit with: 1. Acute on chronic hypoxemic respiratory failure secondary to pulmonary congestion 2. Urinary tract infection, gram-negative rods 3. Atrial fibrillation s/p rapid ventricular response 4. Chronic encephalopathy with a history of subdural hematoma and left fish- craniotomy, ventriculomegaly, hx of infarcts 5. Diabetes 6. Hypertension ABX ALLERGIES: PCN/VANCO IV INVASIVES: PIV CURRENT ABX: OFF ABX Day #1 s/p ABX DAY #7 =>CEFTRIAXONE OFF ID RECOMMENDATIONS/PLAN: 1.COMPLETED ABX YESTERDAY WAS LAST DOSE 2. Monitor OFF ABX -January DC OFF ABX as long as no recurrent clinical indicators for sepsis / Consultation Date/Type/Reason Admit Date/Time Mar 29, 2019 at 13:25 Initial Consult Date 03/31/19 Requesting Provider: ROMEO DURAND Date/Time of Note DATE: 04/05/19 TIME: 15:27 Exam/Review of Systems Exam Vitals Vital Signs Date Temp Pulse Resp B/P (MAP) Pulse Ox O2 O2 Flow FiO2 Time Delivery Rate 04/05/19 52 14 98 30 15:11 04/05/19 97.5 129/59 11:33 (82) 04/04/19 Trach 15:27 Collar Intake and Output 04/04/19 04/04/19 04/05/19 1515:00 23:00 07:00 IntakeIntake Total 1320 ml 1320 ml OutputOutput Total 248 ml BalanceBalance 1320 ml 1072 ml Results Result Diagram: 04/05/19 0611 04/05/19 0611 Results 24hrs Laboratory Tests Test 04/05/19 06:11 White Blood Count 6.0 Red Blood Count 4.27 Hemoglobin 12.1 Hematocrit 35.7 L Mean Corpuscular Volume 83.6 Mean Corpuscular Hemoglobin 28.3 L Mean Corpuscular Hemoglobin Concent 33.9 Red Cell Distribution Width 14.2 Platelet Count 202 Mean Platelet Volume 11.9 H Immature Granulocytes % 0.500 H Neutrophils % 60.4 Lymphocytes % 17.9 Monocytes % 15.6 H Eosinophils % 4.8 Basophils % 0.8 Nucleated Red Blood Cells % 0.0 Immature Granulocytes # 0.030 Neutrophils # 3.6 Lymphocytes # 1.1 Monocytes # 0.9 Eosinophils # 0.3 Basophils # 0.1 Nucleated Red Blood Cells # 0.0 Sodium Level 142 Potassium Level 3.8 Chloride Level 106 Carbon Dioxide Level 28 Anion Gap 8 Blood Urea Nitrogen 13 Creatinine 0.36 L Est Glomerular Filtrat Rate mL/min > 60 Glucose Level 111 Calcium Level 8.8 Phosphorus Level 4.2 Magnesium Level 2.2 Medications Medication Current Medications Acetaminophen (Tylenol Tab) 650 mg Q4H PRN GTB MILD PAIN LEVEL 1-3 Last administered on 04/03/19 22:31; Admin Dose 650 MG; Start 03/29/19 at 14:00 Apixaban (Eliquis) 2.5 mg DAILY GTB Last administered on 04/05/19 10:15; Admin Dose 2.5 MG; Start 03/30/19 at 09:00 Ascorbic Acid (Vitamin C) 500 mg BID GTB Last administered on 04/05/19 10:15; Admin Dose 500 MG; Start 03/29/19 at 21:00 Clonazepam (Klonopin) 0.5 mg BID GTB Last administered on 04/05/19 10:15; Admin Dose 0.5 MG; Start 03/29/19 at 21:00 Levetiracetam (Keppra Liquid) 1,500 mg Q12H GTB Last administered on 04/05/19 13:47; Admin Dose 1,500 MG; Start 03/29/19 at 14:00 Levothyroxine Sodium (Synthroid) 100 mcg BEFORE BREAKFAST GTB Last administered on 04/05/19 05:17; Admin Dose 100 MCG; Start 03/30/19 at 07:00 Magnesium Hydroxide (Milk Of Mag) 30 ml DAILY GTB Last administered on 04/05/19 10:15; Admin Dose 30 ML; Start 03/30/19 at 09:00 Melatonin (Melatonin) 5 mg HS GTB Last administered on 04/04/19 21:31; Admin Dose 5 MG; Start 03/29/19 at 21:00 Docusate Sodium (Colace Liquid Cup) 100 mg QHS GTB Last administered on 04/04/19 21:24; Admin Dose 100 MG; Start 03/29/19 at 21:00 Ondansetron HCl (Zofran Inj) 4 mg Q6H PRN IV NAUSEA AND/OR VOMITING; Start 03/29/19 at 15:00 Ipratropium [place] (Atrovent Hfa) 2 puff Q4H RESP THERAPY INH Last administered on 04/05/19 13:14; Admin Dose 2 PUFF; Start 03/29/19 at 17:00 Ipratropium [place] (Atrovent Hfa) 2 puff Q2H RESP THERAPY PRN INH SHORTNESS OF BREATH; Start 03/29/19 at 15:00 Lorazepam (Ativan) 1 mg Q2H PRN IV ANXIETY Last administered on 03/30/19 20:21; Admin Dose 1 MG; Start 03/29/19 at 15:00 Atorvastatin Calcium (Lipitor) 10 mg DAILY@21 PO Last administered on 04/04/19 21:27; Admin Dose 10 MG; Start 03/29/19 at 21:00 Multivitamins/ Minerals (Theragran-M) 1 tab DAILY PO Last administered on 04/05/19 10:15; Admin Dose 1 TAB; Start 03/30/19 at 09:00 Eye Lubricant (Artificial Tears Oph) 1 drop Q12H PRN BOTH EYES DRY EYES; Start 03/29/19 at 18:30 Ferrous Sulfate (Feosol Liquid Cup) 300 mg BID GTB Last administered on 04/05/19 10:15; Admin Dose 300 MG; Start 03/29/19 at 21:00 Diltiazem HCl (Cardizem Iv) 5 mg Q4 PRN IV HR >110; Start 03/30/19 at 10:30 Lisinopril (Zestril) 5 mg DAILY PO Last administered on 04/05/19 10:22; Admin Dose 5 MG; Start 03/31/19 at 09:00 Pantoprazole (Protonix Tab) 40 mg DAILY@06 PO Last administered on 04/05/19 05:17; Admin Dose 40 MG; Start 03/31/19 at 12:00 Furosemide (Lasix) 40 mg DAILY NGT Last administered on 7/6/19at 10:21; Admin Dose 40 MG; Start 04/02/19 at 09:00 Amiodarone HCl (Cordarone) 200 mg BID PO Last administered on 04/05/19at 10:22; Admin Dose 200 MG; Start 04/04/19 at 21:00 Carvedilol (Coreg) 3.125 mg BID GTB ; Start 04/05/19 at 21:00 MIGUEL ANGEL HUERTAS NP Apr 05, 2019 15:29
[2019-04-05] MEDS: DOCUSATE SODIUM 10 MG/ML (10ML CUP) GTB SCH (20:50)
[2019-04-05] MEDS: ATORVASTATIN 10 MG TAB PO SCH (20:52)
[2019-04-05] MEDS: MELATONIN 5 MG TABLET GTB SCH (20:52)
== END 2019-04-05 22:20 | DRG 207 ==
LOC: E/R 10:02 → ICU 13:25 → TEL 04-01 10:36
PROVIDERS: ADMIT Internal Medicine; ATTEND Internal Medicine
PROC: 5A1955Z Respiratory Ventilation, Greater than 96 Consecutive Hours (ICD-10-PCS; principal; 2019-03-29)
PROC: 0W993ZZ Drainage of Right Pleural Cavity, Percutaneous Approach (ICD-10-PCS; 2019-04-02)
DX: J96.21 Acute and chronic respiratory failure with hypoxia (principal); I50.33 Acute on chronic diastolic (congestive) heart failure; Z99.11 Dependence on respirator [ventilator] status; N39.0 Urinary tract infection, site not specified; G93.49 Other encephalopathy; I69.954 Hemiplegia and hemiparesis following unspecified cerebrovascular disease affecting left non-dominant side; I42.9 Cardiomyopathy, unspecified; R40.3 Persistent vegetative state; J90 Pleural effusion, not elsewhere classified; I48.0 Paroxysmal atrial fibrillation; Z79.01 Long term (current) use of anticoagulants; E11.8 Type 2 diabetes mellitus with unspecified complications; I25.10 Atherosclerotic heart disease of native coronary artery without angina pectoris; G40.909 Epilepsy, unspecified, not intractable, without status epilepticus; Z85.3 Personal history of malignant neoplasm of breast; Z90.12 Acquired absence of left breast and nipple; I11.0 Hypertensive heart disease with heart failure; E03.9 Hypothyroidism, unspecified; K21.9 Gastro-esophageal reflux disease without esophagitis; R13.10 Dysphagia, unspecified; Z93.1 Gastrostomy status; Z93.0 Tracheostomy status; I69.998 Other sequelae following unspecified cerebrovascular disease; Z74.01 Bed confinement status; Z86.74 Personal history of sudden cardiac arrest; R33.8 Other retention of urine; F95.9 Tic disorder, unspecified
CPT/HCPCS: 36415; 36600; 70450; 71045; 76942; 80048; 80053; 80069; 81001; 82803; 82945; 83036; 83605; 83615; 83735; 83880; 84100; 84157; 84443; 84484; 85025; 85610; 85730; 87070; 87075; 87081; 87086; 87102; 87116; 88104; 88305; 89051; 93005; 93306; 94002; 94003; 94640; 94664; 96374; 97163; A4310; J0282; J0610; J0696; J1940; J1953; J1956; J2060; J3475; J3480; J7030; J7040; J7060